=== PATIENT | male | born 1940 | race Two or more races ===

== ENCOUNTER → 2021-05-17 08:14 | Outpatient (REF) | payer MEDICAID, OTHER, SELFPAY ==
--- NOTE | 2021-05-17 08:30 | CA_ITS ---
Transthoracic Echocardiogram Patient (Last, First, Middle): Evan Boyd, Gender: Male Date of : 1940 Age: 80 Procedure Date: 05/17/2021 Procedure Type: Transthoracic Echocardiogram Location: OP Height: 170.18 cm Weight: 80.74 kg BSA: 1.92 m2 Heart Rate: bpm BP: 912 / 61 mmHg Instructional Material Director: DSFausto Referring MD: Rashmi Finnegan NP Symptoms: I10 HTN R42 DIZZINESS GIDDINESS Z95.2 S/P PROSTHETIC HEART V Study Quality: Fair ECG Rhythm: Sinus Conclusions: - The left ventricular systolic function is mildly decreased. The visually estimated ejection fraction is between 45-50%(EF difficult to assess due to poor endocardial definition). - The basal inferior, mid inferior, and basal inferolateral segments are hypokinetic. - No obvious valvular pathology seen on this study. Findings Left Ventricle Normal left ventricular cavity size. There is mildly increased left ventricular wall thickness. The left ventricular systolic function is mildly decreased. The visually estimated ejection fraction is between 45-50%. Evidence suggests grade I (mild) diastolic dysfunction. Wall Motion Rest Echo Findings The basal inferior, mid inferior, and basal inferolateral segments are hypokinetic. Right Ventricle Normal right ventricular cavity size and systolic function. TAPSE 1.95cm. Atria Both atria are normal in size. Aortic Valve There is a normal trileaflet aortic valve. There is mild calcification of the aortic valve. There is no aortic valve stenosis. There is trace (trivial) aortic valve regurgitation. Mitral Valve The mitral valve appears normal. There is trace mitral valve regurgitation. There is no mitral valve stenosis. Pulmonic Valve The pulmonic valve was not well visualized. There is trace pulmonic valve regurgitation. Tricuspid Valve Normal tricuspid valve structure. There is trace tricuspid valve regurgitation. The pulmonary artery systolic pressure is normal. Great Vessels The asc aorta is normal in size. Venous The inferior vena cava is normal in size and collapses greater than 50% with inspiration. Pericardium/Pleural There is no evidence of pericardial effusion. Prior Study Comparison No prior study available for comparison. Recommendations, Care & Conclusions No obvious valvular pathology seen on this study. Measurements 2D Linear Measurements IVSd: 1.22 0.6-0.9/0.6-1.0 cm LVIDd: 4.47 3.9-5.3/4.2-5.9 cm LVIDd Index: 2.33 2.4-3.2/2.2-3.1 cm/m2 LVIDs: 3.20 2.0-3.6 cm LVPWd: 1.13 0.7-1.1 cm Ao Root: 2.80 2.1-3.5 cm LA Diam: 4.00 2.7-3.8/3.0-4.0 cm LAIDs Index: 2.08 1.5-2.3 cm/m2 LV Mass: 237.02 67-162/88-224 g LV Mass Index: 123.45 43-95/49-115 g/m2 LVOT Diam: 2.20 3.0+(-)1.3 cm 2D Systolic Function EF 4C: 43.20 >55% EF 2C: 53.20 >55% EF BiP: 46.70 >55% Mitral Valve MV Pk E: 0.50 MV PK A: 0.68 MV Decel Time: 342.00 E/A: 0.70 E'Lateral: 8.81 E'Medial: 5.66 E/E' Med: 8.80 E/E' Lat: 5.60 PHT: 100.00 MVA PHT: 2.20 Decel Ta[place]: 1.45 Aortic Valve AoV Pk Acosta: 1.51 AoV Pk Grad: 9.00 LVOT LVOT Pk Acosta: 0.83 LVOT Mn Acosta: 0.61 LVOT VTI: 0.21 LVOT Pk Grad: 3.00 LVOT Mn Grad: 2.00 LVOT Diam: 2.20 LVOT Area: 3.80 Diastolic Function MV Pk E: 0.50 MV Pk A: 0.68 E/A: 0.70 E'Medial: 5.66 E/E' Med: 8.80 E' Laterial: 8.81 E/E' Lat: 5.60 Right Ventricle TAPSE (mm): 1.95 Tricuspid Valve TR Pk Acosta: 2.35 TR Pk Grad: 22.00 RA Press: 3.00 RVSP: 25.00 Great Vessels Aorta Ao Root-2D: 2.80 2.0-3.7 cm Ao Asc: 3.60 2.1-3.4 cm Updated in Other Vendor System with Status of Final Parth Lubin MD electronically signed on 05/19/2021 1:42:00 PM with status of Final
== END ==
LOC: HO.CARD 08:14
PROVIDERS: PCP Nurse Practitioner Primary Care; Visit Provider Nurse Practitioner Primary Care
DX: I10 Essential (primary) hypertension (principal); R42 Dizziness and giddiness; Z95.2 Presence of prosthetic heart valve
CPT/HCPCS: 93306

== ENCOUNTER 2022-01-22 07:47 | Outpatient (REF) | payer MEDICAID, OTHER, SELFPAY ==
--- NOTE | ~2022-01-22 | XR_ITS ---
EXAMINATION: XR knee RT 3V, XR knee standing BI CLINICAL INFORMATION: Reason for Exam M17.11 - Unilateral primary osteoarthritis, right knee COMPARISON: None. TECHNIQUE: Weightbearing AP view of the bilateral knees and sunrise and lateral views of the right knee FINDINGS: No acute fracture or traumatic malalignment. There are tricompartmental marginal osteophytes, and by moderate narrowing of the right medial tibiofemoral compartment, without significant loss of joint space thickness of the lateral tibiofemoral compartment. There is mild narrowing of the medial and lateral tibiofemoral compartments on the left. Tricompartmental marginal osteophytes are present. Trace knee joint effusion. XR/XR knee RT 3V IMPRESSION: Tricompartmental degenerative changes as described, most pronounced within the medial tibiofemoral compartment on the right where there is moderate loss of joint space thickness. Trace knee joint effusion.
--- NOTE | ~2022-01-22 | XR_ITS ---
EXAMINATION: XR knee RT 3V, XR knee standing BI CLINICAL INFORMATION: Reason for Exam M17.11 - Unilateral primary osteoarthritis, right knee COMPARISON: None. TECHNIQUE: Weightbearing AP view of the bilateral knees and sunrise and lateral views of the right knee FINDINGS: No acute fracture or traumatic malalignment. There are tricompartmental marginal osteophytes, and by moderate narrowing of the right medial tibiofemoral compartment, without significant loss of joint space thickness of the lateral tibiofemoral compartment. There is mild narrowing of the medial and lateral tibiofemoral compartments on the left. Tricompartmental marginal osteophytes are present. Trace knee joint effusion. XR/XR knee standing BI IMPRESSION: Tricompartmental degenerative changes as described, most pronounced within the medial tibiofemoral compartment on the right where there is moderate loss of joint space thickness. Trace knee joint effusion.
== END 2022-01-22 07:48 | disposition home or self-care (01) ==
LOC: HO.HOSX 07:47
PROVIDERS: Visit Provider Physician Assistant
DX: M17.11 Unilateral primary osteoarthritis, right knee (principal); M25.562 Pain in left knee
CPT/HCPCS: 20610; 73562; 73565; 99202; J1040

== ENCOUNTER → 2022-05-13 13:13 | Outpatient (BNVA) | payer MEDICAID, SELFPAY | PROVIDERS: PCP Nurse Practitioner Primary Care; Referring Provider Nurse Practitioner Primary Care; Visit Provider Internal Medicine | DX: I25.10 Atherosclerotic heart disease of native coronary artery without angina pectoris (principal); I25.5 Ischemic cardiomyopathy; I10 Essential (primary) hypertension; E78.5 Hyperlipidemia, unspecified; Z95.1 Presence of aortocoronary bypass graft | CPT/HCPCS: 93005; 99202 ==

== ENCOUNTER → 2022-05-28 08:38 | Outpatient (REF) | payer MEDICAID, SELFPAY ==
--- NOTE | ~2022-05-28 | NM_ITS ---
Lexiscan Myocardial perfusion study Indication: Coronary artery disease, history of bypass surgery, assess for ischemia Technique: The patient was brought in for a Lexiscan perfusion study on 05/28/2022 and was injected 0.4 mg of Lexiscan intravenously. Within a minute of this injection 30 mCi of sestamibi was given intravenously. Images were obtained using the SPECT gamma camera interlaced with the gating device. Images were obtained in supine position. Resting perfusion study was performed on 05/29/2022. Patient was administered 30 mCi of sestamibi intravenously at rest. Images were then obtained in supine position. Total DLP 73mGy-cm. Images were processed with the software and compared side to side in short axis, horizontal long axis and vertical long axis views. Findings: Raw acquisition reviewed. The stress perfusion study showed diminished tracer uptake in the basal to mid inferior wall. There is some improvement with CT attenuation correction but does not resolve. There is also subdiaphragmatic tracer uptake that interferes with inferior wall assessment. The gated study shows normal LV systolic function with calculated LVEF of 63%. LV cavity is normal in size. The gated study shows diminished contractility in the basal to mid inferior wall. Resting study shows mildly decreased tracer uptake in the basal inferior wall. There is improvement with CT attenuation correction suggestive of diaphragmatic attenuation artifact. Gating at rest reveals LVEF 57%; slight basal inferior hypokinesis. The findings are consistent with basal to mid inferior defect; reversible and fixed components; could be ischemia/infarct pattern but could also be from artifact related to subdiaphragmatic uptake as well as diaphragmatic attenuation. NM/NM cardiolite stress test Impression: 1. Myocardial perfusion imaging study shows possible mild ischemia/infarct pattern in the basal to mid inferior wall. However, could also be artifactual related to subdiaphragmatic uptake as well as diaphragmatic attenuation artifact. Correlate clinically. 2. Gated LVEF is 67% during stress and 57% during rest. 3. Transient ischemic dilatation not present. EKG component of the test reported separately.
--- NOTE | 2022-05-28 08:41 | CA_ITS ---
Acquisition Time: 2022-05-28 08:56:21 Total Exercise Time: 00:03:03 Test Indications: Dyspnea Medications: ASA ATORVASTATIN LISINOPRIL METOPROLOL OMEPRAZOLE Protocol: JASMIN Max HR: 103 BPM 74% of Pred: 138 BPM Max BP: 150/070 mmHG Max Work Load: 4.6 METS Exercise stress test with exercise 3 min 3 sec of Jasmin protocol, achieving 73% MPHR, with request to slow down due to inability to keep up with pace of treadmill, without mild sob, no CP, with nondiagnostic EKG for ischemia due to suboptimal heart rate. Treadmill placed in recovery and slowed to 1 MPH. Testing changed to pharmacological stress test with Lexiscan injection, without anginal symptoms, with isolated PAC, with normtensive response to injection, with nondiagnostic EKG for ischemia. Nuclear images pending. Referred By: Parth Lubin Overread By: NURA GRANT
== END ==
LOC: HO.CARD 08:38
PROVIDERS: Visit Provider Internal Medicine
DX: Z95.1 Presence of aortocoronary bypass graft (principal)
CPT/HCPCS: 78452; 93017; A9500; J0280; J2785

== ENCOUNTER → 2022-07-09 14:31 | Outpatient (BNVA) | payer MEDICAID, SELFPAY | PROVIDERS: PCP Nurse Practitioner Primary Care; Referring Provider Nurse Practitioner Primary Care; Visit Provider Internal Medicine | DX: I25.10 Atherosclerotic heart disease of native coronary artery without angina pectoris (principal); I25.5 Ischemic cardiomyopathy; I10 Essential (primary) hypertension; E78.5 Hyperlipidemia, unspecified; Z95.1 Presence of aortocoronary bypass graft | CPT/HCPCS: 99212 ==

== ENCOUNTER 2022-08-27 08:14 | Outpatient (REF) | payer MEDICAID, SELFPAY ==
[2022-08-27 09:30] LABS: Alanine Aminotransferase 14 U/L (0-40); Albumin Level 4.1 g/dL (3.5-5.0); Alkaline Phosphatase 79 U/L (39-117); Aspartate Amino Transferase 14 U/L (5-37); Bilirubin Direct 0.3 mg/dL (0.0-0.5); Bilirubin Total 0.8 mg/dL (0.0-1.0); Cholesterol 146 mg/dL; HDL Cholesterol 46 mg/dL; LDL Cholesterol Calculated 83 mg/dl; Total Protein 7.1 g/dL (6.5-8.0); Triglycerides 89 mg/dL
== END 2022-08-27 08:15 | disposition home or self-care (01) ==
LOC: HO.LAB 08:14
PROVIDERS: Visit Provider Internal Medicine
DX: E78.5 Hyperlipidemia, unspecified (principal)
CPT/HCPCS: 36415; 80061; 80076

== ENCOUNTER 2023-01-09 11:35 | Inpatient (IN) | payer MEDICAID, SELFPAY ==
--- NOTE | ~2023-01-09 | US_ITS ---
EXAMINATION: US ABDOMEN COMPLETE CLINICAL INFORMATION: Bacteremia. COMPARISON: None available. TECHNIQUE: Real-time imaging of the abdominal viscera. FINDINGS: PANCREAS: Normal. ABDOMINAL AORTA: The proximal, mid, and distal segments are normal in caliber. INFERIOR VENA CAVA: Visualized portions are normal. LIVER: Normal. The liver is normal in size. The liver contour is normal. Parenchymal echogenicity is normal. No focal hepatic lesion. There is no intrahepatic biliary duct dilatation seen. GALLBLADDER: Normal. The gallbladder is physiologically distended without evidence of stones, sludge, polyps, wall thickening or pericholecystic fluid. COMMON BILE DUCT: Normal in caliber measuring 0.3 cm in diameter. RIGHT KIDNEY: Normal. No hydronephrosis. No renal calculi or focal parenchymal lesions. The kidney measures 12.0 cm in maximum dimension. LEFT KIDNEY: Normal. No hydronephrosis. No renal calculi or focal parenchymal lesions. The kidney measures 11.8 cm in maximum dimension. SPLEEN: Normal. The spleen measures 8.3 cm in maximum dimension. FREE FLUID: None. US/US abdomen complete IMPRESSION: Unremarkable examination.
--- NOTE | ~2023-01-09 | CT_ITS ---
EXAMINATION: CT ABDOMEN AND PELVIS WITH CONTRAST CLINICAL INFORMATION: Right flank pain, UTI. COMPARISON: None available. TECHNIQUE: Multidetector volumetric images were obtained from the superior aspect of the liver through the pubic symphysis following administration 85 mL of Omnipaque 350 intravenous contrast. Sagittal and coronal reformatted images were obtained on the technologist's workstation. Oral contrast: No This CT examination was performed using dose optimization techniques as appropriate, variously including the following: *Automated exposure control *Adjustment of mA and/or kV according to patient size (this includes techniques or standardized protocols for targeted exams where dose is matched to indication/reason for exam; i.e. extremities or head) *Use of iterative reconstruction technique DLP: 532 mGy-cm FINDINGS: LUNG BASES: Mild bibasilar atelectasis/scarring. No pleural or pericardial effusions. LIVER, GALLBLADDER, AND BILIARY TREE: Unremarkable.. PANCREAS: Unremarkable. SPLEEN: Unremarkable. ADRENAL GLANDS: Unremarkable. KIDNEYS AND URETERS: The kidneys are normal in size, shape, and attenuation. No hydronephrosis, hydroureter, or calculi seen. No perinephric stranding. BLADDER: Mildly distended with diffuse mild mural thickening, but no focal or surrounding abnormality. GASTROINTESTINAL TRACT: The stomach, small bowel and appendix are unremarkable. The colon shows mild to severe diverticulosis or evidence aligned, most pronounced in the descending colon. There is mild inflammation surrounding a diverticulum in the mid one third of the descending colon without evidence for perforation or abscess formation. ABDOMINAL WALL: No significant hernia is appreciated. LYMPH NODES: No lymphadenopathy. VASCULAR: Mild to moderate atherosclerosis most pronounced in the infrarenal abdominal aorta without significant aneurysmal dilatation. PELVIC VISCERA: Moderate prostatomegaly with lobulation of the prostatic base indenting the inferior wall the urinary bladder. OSSEOUS STRUCTURES: Mild multilevel degenerative changes in the thoracolumbar spine without suspicious abnormality. CT/CT abdomen pelvis w IV con IMPRESSION: 1. Mild acute diverticulitis in the mid one third of the descending colon without evidence for perforation or abscess formation. 2. No nephrolithiasis or hydroureteronephrosis. 3. Moderate prostatomegaly with lobulation of the prostatic base indenting the inferior wall the urinary bladder. Mild mural thickening in the urinary bladder is likely secondary to incomplete distention/chronic changes. Correlate with PSA level.
--- NOTE | ~2023-01-09 | XR_ITS ---
EXAMINATION: XR CHEST CLINICAL INFORMATION: Fever. COMPARISON: None available. TECHNIQUE: Frontal view of the chest was obtained. FINDINGS: Mild linear markings are seen at the left lung base. The upper lung lock are clear. The heart and mediastinal structures are unremarkable. Multilevel sternotomy wires are intact. XR/XR chest 1V IMPRESSION: Mild left basilar linear atelectasis/scarring. No acute cardiopulmonary process.
--- NOTE | ~2023-01-09 | US_ITS ---
EXAMINATION: US PELVIS LIMITED (BLADDER) CLINICAL INFORMATION: Bacteremia; question prostate abscess. COMPARISON: None available. TECHNIQUE: Real-time imaging of the bladder. FINDINGS: BLADDER: Well distended, without calculus or wall thickening. Bilateral ureteral jets are demonstrated. Prevoid bladder volume is 178 mL. Postvoid bladder volume is 75 mL. OTHER: Prostate dimensions are 3.6 x 3.0 x 3.6 cm (volume 20.1 mL). Arising exophytically from the superior prostate gland and projecting into the urinary bladder, a 1.8 x 2.0 x 1.7 cm nodule is noted. No abscess collection is seen. US/US bladder IMPRESSION: 1. A 2.0 cm nodule is seen arising from the superior prostate gland and projecting anteriorly into the urinary bladder. This could be further evaluated with dedicated transrectal prostate ultrasound or MRI, if clinically indicated. Recommend correlation with patient's serum PSA level. 2. No prostate abscess is noted. 3. There is an increased postvoid residual volume.
[2023-01-09 11:41] VITALS: BP 144/76; BP 149/85; PULSE 86; PULSE 88; RESP 26; TEMP 37.9; O2SAT 97; O2SAT 98; BMI 27.1
--- NOTE | 2023-01-09 11:50 | ECG_ITS ---
Test Reason : WEAKNESS Blood Pressure : / mmHG Vent. Rate : 083 BPM Atrial Rate : 083 BPM P-R Int : 152 ms QRS Dur : 090 ms QT Int : 350 ms P-R-T Axes : 053 046 009 degrees QTc Int : 411 ms Normal sinus rhythm Nonspecific ST and T wave abnormality Abnormal ECG No previous ECGs available Referred By: Sana Mccann Electronically Signed By:MUKUND GUSTAFSON MD
--- NOTE | 2023-01-09 11:55 | ED_ITS ---
HPI - Fever General Chief Complaint: Fever Stated Complaint: Anxiety, low back pain per EMS Time Seen by Provider: 01/09/23 11:50 Source: patient and EMS Mode of arrival: EMS Limitations: no limitations History of Present Illness HPI Narrative: 82 y/o male with history of CAD s/p CABG in [facility] in 2006, ALBER, HTN, HLA, urinary retention who presents to the ER from home via EMS for evaluation of shaking chills that started today along with right lower back pain that started yesterday. History obtained from patient's son at the bedside as well. He states that his dad had tremors today and was c/o feeling weak. They did not take his temperature at home. He reports a similar episode 6 months ago but cannot say what the cause was. Patient states he has been coughing and short of breath today. No phlegm. No chest pain. No nausea, vomiting or diarrhea. He has been having normal BMs. No urinary symptoms. Denies abdominal pain and states the pain is all in his right lower back. It is worse with movement. MD elicited complaint: fever and malaise Onset (ago): hour(s) Exacerbating factors: in morning Relieving factors: nothing Associated symptoms: chills, rigors, myalgias, cough, shortness of breath and back/flank pain Treatments prior to arrival fever: none Related Data Home Medications Medication Instructions Recorded Confirmed aspirin 81 mg tablet,delayed 81 mg PO DAILY 01/22/22 01/09/23 release lisinopril 2.5 mg tablet 2.5 mg PO DAILY 01/22/22 01/09/23 omeprazole 20 mg capsule,delayed 20 mg PO DAILY 01/22/22 01/09/23 release metoprolol succinate 50 mg 50 mg PO DAILY 05/13/22 01/09/23 tablet,extended release 24 hr atorvastatin 80 mg tablet 80 mg PO BEDTIME 01/09/23 01/09/23 diclofenac sodium 1 % topical gel 2 g topical QD-QID PRN PAIN IN 01/09/23 01/09/23 RIGHT KNEE fluticasone propionate 50 2 spray intranasal DAILY 01/09/23 01/09/23 mcg/actuation nasal spray,suspension tamsulosin 0.4 mg capsule 0.4 mg PO DAILY@1630 01/09/23 01/09/23 Allergies Allergy/AdvReac Type Severity Reaction Status Date / Time No Known Allergies Allergy Verified 01/09/23 11:40 Review of Systems Review of Systems: Yes all other systems are reviewed and are negative FORMERLY [facility], [facility] Past Medical History Medical History (Updated 01/09/23 @ 15:24 by CRISTAL Stratton) Atherosclerotic cardiovascular disease Hypercholesteremia Hypertension Sleep apnea Urinary retention Surgical History (Updated 05/13/22 @ 13:50 by Parth Lubin MD) History of coronary artery bypass graft (~2006) Family History Family History (Updated 05/13/22 @ 13:41 by JENNIFER Griggs) Father No problems noted. Mother No problems noted. Social History Social History (Updated 05/13/22 @ 13:41 by JENNIFER Griggs) Patient Tobacco Use Status: Never used Tobacco Advance Directives: Yes Advance Directives Information Provided: No Advance Directives on File: No Physical Exam Vital Signs: Vital Signs: Last Vital Signs Temp 100.7 F H 01/09/23 13:32 Pulse 64 01/09/23 17:07 Resp 16 01/09/23 17:07 BP 95/41 L 01/09/23 17:07 Pulse Ox 97 01/09/23 17:07 O2 Del Method Room Air 01/09/23 17:07 BMI result Body Mass Index 27.1 Appearance: Alert. Oriented X3. Rigoring Eyes: Pupils equal, round and reactive to light. ENT: Pharynx normal. Neck: Normal inspection. Neck supple. CVS: Normal heart rate and rhythm. Pulses normal. Respiratory: No respiratory distress. Breath sounds normal. Abdomen: Soft and nontender. +BS x4 Back: tenderness of the right lumbar area. +CVA tenderness on the right Skin: Skin warm and dry. Normal skin color. Normal skin turgor. No rashes. Extremities: No lower extremity edema. Neuro: Oriented X 3. No motor deficit. No sensory deficit. Medications Administered Discontinued Medications Generic Name Dose Route Start Last Admin Trade Name Freq PRN Reason Stop Dose Admin Acetaminophen 975 mg 01/09/23 11:50 01/09/23 12:20 Acetaminophen 325 Mg Tablet PO 01/09/23 11:51 975 mg ONCE ONE Administration Ceftriaxone Sodium 1 gm/ 50 mls @ 100 mls/hr 01/09/23 13:46 03/24/23 15:44 Sodium Chloride IV 01/09/23 14:15 Infused ONCE ONE Infusion Sodium Chloride 1,000 mls @ 999 mls/hr 01/09/23 14:00 01/09/23 15:44 Ns IVCONT 01/09/23 15:00 Infused .Q1H1M DOMENIC Infusion Metronidazole 500 mg in 100 mls @ 100 mls/hr 01/09/23 15:22 01/09/23 16:33 Flagyl IV 01/09/23 16:21 100 mls/hr ONCE ONE Administration Iohexol 85 ml 01/09/23 14:28 01/09/23 14:29 Iohexol 350 Mg/Ml 100 Ml Infus..Btl IV 01/09/23 14:29 85 ml ONCE ONE Administration Medical Decision Making Medical Decision Making MDM Narrative: 82 yo [place]ralt[place] speaking male with 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 Low grade fever on arrival. Hemodynamically stable but tachypenic w RR 26-28. Lungs are clear. Septic workup started. WBC 14K, normal lactic acid. Urinalysis c/w infection. CT scan performed which is showing acute diverticulitis. He meets sepsis criteria. He was given Rocephin for UTI. Will add Flagyl for additional intra-abdominal coverage. Will plan for admission. Differential Diagnosis Differential Diagnoses: The differential diagnosis associated with the presentation includes sepsis, UTI, PNA, viral illness, acute intra-abdominal infection such as appendicitis, cholecystitis less likely Admission/Observation Consideration of admission/observation: Escalation of care including admission/observation considered Consult Healthcare Provider Management of the patient was discussed with: Hospitalist Lab Data [facility] Lab Attestation statement: I reviewed the patient's lab results. Leukocytosis, no major metabolic derangement. 01/09/23 12:17 01/09/23 12:16 Labs: Lab Results 01/09/23 01/09/23 01/09/23 Range/Units 12:16 12:16 12:17 WBC 14.4 H (4.8-10.8) X10*3/uL RBC 5.07 (4.60-5.80) X10*6/uL Hgb 14.3 (14.0-18.0) g/dl Hct 44.0 (42.0-52.0) % MCV 86.8 (80.0-98.0) fL MCH 28.2 (27.0-33.0) pg MCHC 32.5 (31.0-36.0) g/dl RDW 14.2 (11.0-16.0) % Plt Count 194 (160-400) X10*3/uL MPV 10.6 (9.4-12.4) fL Immature Gran % (Auto) 0.3 (0.0-0.4) % Neut % (Auto) 85.4 H (45-73) % Lymph % (Auto) 6.0 L (20-40) % Pine % (Auto) 4.3 (2-11) % Eos % (Auto) 3.4 (0-4) % Baso % (Auto) 0.6 (0-2) % Lymph # (Auto) 0.9 L (1.2-4.9) X10*3/uL Pine # (Auto) 0.6 (0.1-1.2) X10*3/uL Eos # (Auto) 0.5 H (0.0-0.4) X10*3/uL Baso # (Auto) 0.1 (0.0-0.2) X10*3/uL Abs Immat Gran (auto) 0.05 H (0.00-0.03) X10*3/uL Absolute Neuts (auto) 12.3 H (2.0-8.3) x10*3/uL Absolute Nucleated RBC 0.000 (0.0-0.012) X10*3/uL Nucleated RBC % (auto) 0.0 (0.0-0.2) /100WBC Sodium 142 (135-145) mmol/L Potassium 3.9 (3.3-5.1) mmol/L Chloride 108 (96-108) mmol/L Carbon Dioxide 26 (22-29) mmol/L Anion Gap 12 (12-20) BUN 17 H (9-16) mg/dL Creatinine 1.07 (0.5-1.4) mg/dL Estim Creat Clear Calc 54.6 Estimated GFR > 60 Random Glucose 95 (60-115) mg/dL Lactic Acid (0.5-2.0) mmol/L Calcium 9.1 (8.4-10.2) mg/dL Magnesium 1.8 (1.6-2.6) mg/dL Total Bilirubin 1.1 H (0.0-1.0) mg/dL Direct Bilirubin 0.3 (0.0-0.5) mg/dL AST 12 (5-37) U/L ALT 11 (0-40) U/L Alkaline Phosphatase 75 (39-117) U/L C-Reactive Protein 0.47 (< or = 0.50) mg/dL B-Natriuretic Peptide 108 H (<100) pg/mL Total Protein 6.8 (6.5-8.0) g/dL Albumin 4.0 (3.5-5.0) g/dL Procalcitonin 0.09 ng/mL Urine Color Urine Appearance Urine pH (5.0-9.0) Ur Specific Ewing (1.005-1.025) Urine Protein (Neg-Trace) mg/dL Urine Glucose (UA) (Negative) mg/dL Urine Ketones (Negative) mg/dL Urine Blood (Negative) Urine Nitrite (Negative) Ur Leukocyte Esterase (Negative) Urine RBC (0-2) /HPF Urine WBC (0-5) /HPF Ur Squamous Epith Cells (0-2) /HPF Urine Bacteria (None Seen) Hyaline Casts (0-2) /LPF COVID-19 ([facility]) (Negative) COVID-19 Clin Com 01/09/23 01/09/23 01/09/23 Range/Units 12:17 12:17 13:34 WBC (4.8-10.8) X10*3/uL RBC (4.60-5.80) X10*6/uL Hgb (14.0-18.0) g/dl Hct (42.0-52.0) % MCV (80.0-98.0) fL MCH (27.0-33.0) pg MCHC (31.0-36.0) g/dl RDW (11.0-16.0) % Plt Count (160-400) X10*3/uL MPV (9.4-12.4) fL Immature Gran % (Auto) (0.0-0.4) % Neut % (Auto) (45-73) % Lymph % (Auto) (20-40) % Pine % (Auto) (2-11) % Eos % (Auto) (0-4) % Baso % (Auto) (0-2) % Lymph # (Auto) (1.2-4.9) X10*3/uL Pine # (Auto) (0.1-1.2) X10*3/uL Eos # (Auto) (0.0-0.4) X10*3/uL Baso # (Auto) (0.0-0.2) X10*3/uL Abs Immat Gran (auto) (0.00-0.03) X10*3/uL Absolute Neuts (auto) (2.0-8.3) x10*3/uL Absolute Nucleated RBC (0.0-0.012) X10*3/uL Nucleated RBC % (auto) (0.0-0.2) /100WBC Sodium (135-145) mmol/L Potassium (3.3-5.1) mmol/L Chloride (96-108) mmol/L Carbon Dioxide (22-29) mmol/L Anion Gap (12-20) BUN (9-16) mg/dL Creatinine (0.5-1.4) mg/dL Estim Creat Clear Calc Estimated GFR Random Glucose (60-115) mg/dL Lactic Acid 1.6 (0.5-2.0) mmol/L Calcium (8.4-10.2) mg/dL Magnesium (1.6-2.6) mg/dL Total Bilirubin (0.0-1.0) mg/dL Direct Bilirubin (0.0-0.5) mg/dL AST (5-37) U/L ALT (0-40) U/L Alkaline Phosphatase (39-117) U/L C-Reactive Protein (< or = 0.50) mg/dL B-Natriuretic Peptide (<100) pg/mL Total Protein (6.5-8.0) g/dL Albumin (3.5-5.0) g/dL Procalcitonin ng/mL Urine Color Yellow Urine Appearance Clear Urine pH 5.5 (5.0-9.0) Ur Specific Ewing 1.020 (1.005-1.025) Urine Protein Negative (Neg-Trace) mg/dL Urine Glucose (UA) Negative (Negative) mg/dL Urine Ketones Negative (Negative) mg/dL Urine Blood Negative (Negative) Urine Nitrite Positive H (Negative) Ur Leukocyte Esterase Moderate (2+) H (Negative) Urine RBC 0-2 (0-2) /HPF Urine WBC 11-20 H (0-5) /HPF Ur Squamous Epith Cells 0-2 (0-2) /HPF Urine Bacteria 4+ (None Seen) Hyaline Casts 0-2 (0-2) /LPF COVID-19 ([facility]) Negative (Negative) COVID-19 Clin Com See Note Independent Interpretation I performed an independent interpretation of an: EKG and CT Scan Interpretation: EKG @ 12:10 - normal sinus rhythm, artifact present, ventricular rate 83 beats per minute, normal NC interval, no ST segment elevations or depressions appreciated. Radiology Impression Discussion of test interpretation with radiology: I have reviewed the radiologist's reading. Radiologist Impression: CT/CT abdomen pelvis w IV con IMPRESSION: 1.? Mild acute diverticulitis in the mid one third of the descending colon without evidence for perforation or abscess formation. 2.? No nephrolithiasis or hydroureteronephrosis. 3.? Moderate prostatomegaly with lobulation of the prostatic base indenting the inferior wall the urinary bladder. Mild mural thickening in the urinary bladder is likely secondary to incomplete distention/chronic changes. Correlate with PSA level. Independent Historian Clinical information obtained from an independent historian. History obtained from or confirmed by: EMS and Other (Son) External Record Review External record reviewed: Office record, Outpatient record, Prior outpatient labs and Prior outpatient radiology Prescription Management I considered prescription management with: Antibiotic Chronic Conditions Patient?s care impacted by: Other (CAD, ischemic CMP) Critical Care Time Critical Care Time Critical Care Time: Yes Total Critical Care Time: 35 Attestation: I have personally provided critical care time exclusive of time spent on separately billable procedures. Time includes review of lab data, radiology results, discussion with consultants, and monitoring for potential decompensati on. Intervention performed as documented. Discharge Plan Discharge Clinical Impression: Acute UTI, Acute diverticulitis Patient Disposition: Admitted As Inpatient
[2023-01-09] MEDS: Acetaminophen 325 MG TABLET 975 MG PO (12:20)
[2023-01-09 12:29] LABS: MANUAL DIFF FLAG NO
[2023-01-09 12:31] LABS: Basophils Absolute Auto 0.1 X10*3/uL (0.0-0.2); Basophils Percent Auto 0.6 % (0-2); Eosinophils Absolute Auto 0.5 X10*3/uL (0.0-0.4); Eosinophils Percent Auto 3.4 % (0-4); Hemoglobin 14.3 g/dl (14.0-18.0); Imm Gran Abs Auto 0.05 X10*3/uL (0.00-0.03); Imm Gran Pct Auto 0.3 % (0.0-0.4); Lymphocytes Absolute Auto 0.9 X10*3/uL (1.2-4.9); Mean Corpuscular HGB Conc 32.5 g/dl (31.0-36.0); Mean Corpuscular Hemoglobin 28.2 pg (27.0-33.0); Mean Corpuscular Volume 86.8 fL (80.0-98.0); Mean Platelet Volume 10.6 fL (9.4-12.4); Monocytes Absolute Auto 0.6 X10*3/uL (0.1-1.2); Monocytes Percent Auto 4.3 % (2-11); Neutrophils Absolute Auto 12.3 x10*3/uL (2.0-8.3); Neutrophils Percent Auto 85.4 % (45-73); Platelet Count 194 X10*3/uL (160-400); Red Blood Count 5.07 X10*6/uL (4.60-5.80); Red Cell Distribution Width 14.2 % (11.0-16.0); White Blood Count 14.4 X10*3/uL (4.8-10.8)
[2023-01-09 12:43] LABS: Lactic Acid 1.6 mmol/L (0.5-2.0)
[2023-01-09 12:52] LABS: B Type Natriuretic Peptide 108 pg/mL (<100)
[2023-01-09 12:58] LABS: Alanine Aminotransferase 11 U/L (0-40); Alkaline Phosphatase 75 U/L (39-117); Anion Gap 12 (12-20); Aspartate Amino Transferase 12 U/L (5-37); Bilirubin Direct 0.3 mg/dL (0.0-0.5); Bilirubin Total 1.1 mg/dL (0.0-1.0); Blood Urea Nitrogen 17 mg/dL (9-16); Calcium 9.1 mg/dL (8.4-10.2); Carbon Dioxide 26 mmol/L (22-29); Chloride 108 mmol/L (96-108); Creatinine Clr Calc Pharmacy 54.6; Estimated Glomerular Filt Rate > 60; Glucose Random 95 mg/dL (60-115); Magnesium 1.8 mg/dL (1.6-2.6); Potassium 3.9 mmol/L (3.3-5.1); Sodium 142 mmol/L (135-145); Total Protein 6.8 g/dL (6.5-8.0)
[2023-01-09 12:59] LABS: COVID-19 Test Negative (Negative); IDNOW Serial# BCCEAD1C
[2023-01-09 13:11] LABS: Procalcitonin 0.09 ng/mL
[2023-01-09 13:22] LABS: C Reactive Protein 0.47 mg/dL (< or = 0.50)
[2023-01-09 13:32] VITALS: BP 111/55; PULSE 86; RESP 19; TEMP 38.2; O2SAT 96
[2023-01-09 13:43] LABS: Appearance Urine Clear; Color Urine Yellow; Glucose Urine UA Negative (Negative); Leukocyte Esterase Urine Moderate (2+) (Negative); Nitrite Urine Positive (Negative); PH 5.5 (5.0-9.0); UMIC TRIGGER UACC YES; Urine Blood Negative (Negative); Urine Ketones Negative (Negative); Urine Protein Negative (Neg-Trace)
[2023-01-09 13:47] LABS: Bacteria Urine 4+ (None Seen); Hyaline Casts Urine 0-2 /LPF (0-2); RBC Urine 0-2 /HPF (0-2); Squamous Epithelial Cell Urine 0-2 /HPF (0-2); UACC Culture Trigger YES
[2023-01-09] MEDS: cefTRIAXone sodium 1 GM in 0.9 % Sodium Chloride 50 ML IV (14:08)
[2023-01-09] MEDS: 0.9 % Sodium Chloride 1,000 ML 999 ML IVCONT (14:08)
[2023-01-09] MEDS: iohexoL 350 MG/ML 100 ML INFUS..BTL 85 ML IV (14:29)
--- NOTE | 2023-01-09 16:01 | PHA.MEDREC ---
MED REC COMPLETE, NO ISSUES Pharmacy Consult ? Medication Reconciliation Pharmacy has completed the medication reconciliation.
[2023-01-09] MEDS: metroNIDAZOLE/NS 500 MG/100 ML PIGGYBACK 100 MG IV ×2 (16:33→23:31)
--- NOTE | 2023-01-09 16:37 | PM.IMHP ---
History of Present Illness Date of Service: 01/09/23 Attending physician on admission: Timoteo Riggs Chief Complaint: Shaking chills Pt is an 82-year-old male with a PMH significant for?CAD s/p CABG in 2006, ischemic cardiomyopathy, LVEF 45-50% on ECHO 2020, ALBER, HTN, HLD, and urinary retention who presents to the ED with?shaking chills. Pt states symptoms began yesterday with right lower back pain. When he woke this morning he had subjective fever that was not measured and shaking chills. Patient did not have any nausea, vomiting, abdominal pain, diarrhea. Son is at bedside and states that father had similar symptoms 6 months ago. They came to the ED for evaluation but symptoms went away while they were waiting to be seen. They were told by the doctor to present again to the ED if symptoms returned. Patient states that he otherwise felt fine yesterday. Patient does note he has had urinary urgency and retention lately, but does not think that it is any more than normal. Denies chest pain/pressure, palpitations. No SOB. Notes back pain has now resolved. In the ED patient was febrile at 100.7 and tachypneic at 26, satting 96% on RA. Labs were significant for leukocytosis of 14.4. UA positive for UTI. CXR showed no acute cardiopulmonary disease. CT?of abdomen and pelvis showed acute diverticulitis without evidence of perforation or abscess formation, and mild mural thickening in the urinary bladder possibly secondary to incomplete distension/chronic changes. EKG demonstrated normal sinus rhythm witn nonspecific ST and T wave abnormality. Pt was treated with acetaminophen, IVF, ceftriaxone, and metronidazole. Pt will be admitted to the hospital for treatment of acute diverticulitis and UTI with IV antibiotics. Review of Systems Review of Systems: Shaking chills Fever Lower right back pain Denies nausea, vomiting, diarrhea, abdominal pain No chest pain/pressure, palpitations Denies SOB Yes all other systems are reviewed and are negative [facility] Medical History Atherosclerotic cardiovascular disease Hypercholesteremia Hypertension Sleep apnea Urinary retention Family History Father No problems noted. Mother No problems noted. Surgical History History of coronary artery bypass graft (~2006) Social History Patient Tobacco Use Status: Never used Tobacco Advance Directives: Yes Advance Directives Information Provided: No Advance Directives on File: No Meds Allergies Allergy/AdvReac Type Severity Reaction Status Date / Time No Known Allergies Allergy Verified 01/09/23 11:40 Active Medications: Current Medications Pharmacy Consult (Consult Rx Perform Med Rec) 1 each MISCELLANE ONCE PRN PRN Reason: Consult order Home Medications Medication Instructions Recorded Confirmed Last Taken Type aspirin 81 mg tablet,delayed 81 mg PO DAILY 01/22/22 01/09/23 Unknown History release lisinopril 2.5 mg tablet 2.5 mg PO DAILY 01/22/22 01/09/23 Unknown History omeprazole 20 mg capsule,delayed 20 mg PO DAILY 01/22/22 01/09/23 Unknown History release metoprolol succinate 50 mg 50 mg PO DAILY 05/13/22 01/09/23 Unknown History tablet,extended release 24 hr atorvastatin 80 mg tablet 80 mg PO BEDTIME 01/09/23 01/09/23 Unknown History diclofenac sodium 1 % topical gel 2 g topical QD-QID PRN PAIN IN 01/09/23 01/09/23 Unknown History RIGHT KNEE fluticasone propionate 50 2 spray intranasal DAILY 01/09/23 01/09/23 Unknown History mcg/actuation nasal spray,suspension tamsulosin 0.4 mg capsule 0.4 mg PO DAILY@1630 01/09/23 01/09/23 Unknown History Physical Exam Vital Signs and Narrative: Vital Signs: Last Vital Signs Temp 100.7 F H 01/09/23 13:32 Pulse 86 01/09/23 13:32 Resp 19 01/09/23 13:32 BP 111/55 L 01/09/23 13:32 Pulse Ox 96 01/09/23 13:32 O2 Del Method Room Air 01/09/23 13:32 BMI result Body Mass Index 27.1 Constitutional: Alert, in no acute distress. Mental Status: Oriented to person, place and time. Eyes: Pupils are equal, round, and reactive to light. Ear, Nose, and Throat: Oropharynx clear, mucous membranes moist. Ears and nose without deformities. Trachea midline. Respiratory: Clear to auscultation bilaterally. No wheezing, rales, or rhonchi. Cardiovascular: S1, S2 regular. No murmurs, rubs, or gallops. Gastrointestinal: Abdomen soft, non-tender, non-distended. Normal bowel sounds. Neurologic: Cranial nerves II-XII are grossly intact bilaterally. No focal neurological deficits. Moves all extremities spontaneously. Skin: Warm, dry. Musculoskeletal: Back nontender. No CVA tenderness. Extremities: No edema. Psychiatric: Normal mood and affect. Results Labs 01/09/23 12:17 01/09/23 12:16 Labs: Laboratory Results - last 24 hr 01/09/23 01/09/23 01/09/23 12:16 12:16 12:17 MCV 86.8 MCH 28.2 MCHC 32.5 RDW 14.2 Plt Count 194 MPV 10.6 Immature Gran % (Auto) 0.3 Neut % (Auto) 85.4 H Lymph % (Auto) 6.0 L [place] % (Auto) 4.3 Eos % (Auto) 3.4 Baso % (Auto) 0.6 Lymph # (Auto) 0.9 L [place] # (Auto) 0.6 Eos # (Auto) 0.5 H Baso # (Auto) 0.1 Abs Immat Gran (auto) 0.05 H Absolute Neuts (auto) 12.3 H Absolute Nucleated RBC 0.000 Nucleated RBC % (auto) 0.0 Anion Gap 12 Estim Creat Clear Calc 54.6 Estimated GFR > 60 Random Glucose 95 Lactic Acid Calcium 9.1 Magnesium 1.8 Total Bilirubin 1.1 H Direct Bilirubin 0.3 AST 12 ALT 11 Alkaline Phosphatase 75 C-Reactive Protein 0.47 B-Natriuretic Peptide 108 H Total Protein 6.8 Albumin 4.0 Procalcitonin 0.09 Urine Color Urine Appearance Urine pH Ur Specific [place] Urine Protein Urine Glucose (UA) Urine Ketones Urine Blood Urine Nitrite Ur Leukocyte Esterase Urine RBC Urine WBC Ur Squamous Epith Cells Urine Bacteria Hyaline Casts COVID-19 ([facility]) COVID-19 Clin Com 01/09/23 01/09/23 01/09/23 12:17 12:17 13:34 MCV MCH MCHC RDW Plt Count MPV Immature Gran % (Auto) Neut % (Auto) Lymph % (Auto) [place] % (Auto) Eos % (Auto) Baso % (Auto) Lymph # (Auto) [place] # (Auto) Eos # (Auto) Baso # (Auto) Abs Immat Gran (auto) Absolute Neuts (auto) Absolute Nucleated RBC Nucleated RBC % (auto) Anion Gap Estim Creat Clear Calc Estimated GFR Random Glucose Lactic Acid 1.6 Calcium Magnesium Total Bilirubin Direct Bilirubin AST ALT Alkaline Phosphatase C-Reactive Protein B-Natriuretic Peptide Total Protein Albumin Procalcitonin Urine Color Yellow Urine Appearance Clear Urine pH 5.5 Ur Specific [place] 1.020 Urine Protein Negative Urine Glucose (UA) Negative Urine Ketones Negative Urine Blood Negative Urine Nitrite Positive H Ur Leukocyte Esterase Moderate (2+) H Urine RBC 0-2 Urine WBC 11-20 H Ur Squamous Epith Cells 0-2 Urine Bacteria 4+ Hyaline Casts 0-2 COVID-19 ([facility]) Negative COVID-19 Clin Com See Note Imaging Radiologist's Impressions: Impressions Chest X-Ray 01/09/23 12:06 IMPRESSION: Mild left basilar linear atelectasis/scarring. No acute cardiopulmonary process. Abdomen/Pelvis CT 01/09/23 14:20 IMPRESSION: 1. Mild acute diverticulitis in the mid one third of the descending colon without evidence for perforation or abscess formation. 2. No nephrolithiasis or hydroureteronephrosis. 3. Moderate prostatomegaly with lobulation of the prostatic base indenting the inferior wall the urinary bladder. Mild mural thickening in the urinary bladder is likely secondary to incomplete distention/chronic changes. Correlate with PSA level. Assessment and Plan (1) Acute UTI: Status: Acute (2) Acute diverticulitis: Status: Acute Plan Pt is an 82-year-old male with a PMH significant for?CAD s/p CABG in 2006, ischemic cardiomyopathy, LVEF 45-50% on ECHO 2020, ALBER, HTN, HLD, and urinary retention who presents to the ED with?shaking chills. Pt will be admitted to the hospital for treatment of acute diverticulitis and UTI with IV antibiotics. Acute diverticulitis CT of the abdomen and pelvis showed mild acute diverticulitis in the mid 1/3 of the descending colon without evidence of perforation or abscess Patient without nausea, vomiting, diarrhea IV antibiotics: Metronidazole and ceftriaxone Diet as tolerated Patient received 1L IVF in ED UTI UA positive for nitrates, leukocyte esterase, and WBC Patient with urinary retention and increased urgency Patient covered by ceftriaxone Sepsis Patient meets sepsis criteria: Suspected infection, WBC, tachypneic, lactic acid WNL Pt meets severe sepsis criteria d/t MAP <65, but pt not given 30 mls/kg IVF d/t HFrEF Patient received 1L IVF in ED Patient being covered by broad-spectrum antibiotics HTN Hold lisinopril d/t hypotension CAD Continue aspirin, statin Full Code Attending:?Dr. Riggs DVT Prophylaxis: Lovenox Pt will require a hospitalization of at least two nights for treatment of?acute diverticulitis and UTI with IV antibiotics. Time Spent With Patient Time: Total time managing care of this patient today ____ minutes. Quality Stroke Does the patient have a stroke diagnosis?: No VTE Prior VTE?: No VTE Risk Level:: Medical - moderate - high VTE Device Contraindication: Treatment Not Indicated VTE Drug Contraindication: N/A - Med Ordered
[2023-01-09 17:07] VITALS: BP 95/41; PULSE 64; RESP 16; O2SAT 97
--- NOTE | 2023-01-09 17:50 | PC.NURSE ---
patient denies abd pain at this time. ambulating with steady gait independently to and from the bathroom
--- NOTE | 2023-01-09 18:32 | P.EN_ITS ---
Event Note Date of Service: 01/09/23 Event Note: Addendum to history and physical by the advanced practice provider, CRISTAL Avila I interviewed and examined the patient. I discussed their presentation and management with the ELISSA. I reviewed the history and physical and agree with the documentation, with the following additions and corrections: This history was taken in Greenlandic from the patient. 82yo M with hx CAD + ischemic CM s/p CABG, prostatism presenting with sudden onset of tactile fever and rigors upon awakening this morning. Some L lower back pain that has since resolved. On presentation to the ED met sepsis criteria with WBC 14.4 [85% PMNs], RR 88. Tmax 100.7. BP 144/76 -> 95/41. He feels entirely well, though. No CVA tenderness and no abdominal tenderness. UA with nitrituria/bacteruria/pyuria CT A/P shows mild sigmoid diverticulitis. LA 1.6. He was given 1L NS, ceftriaxone + metronidazole. More IV NS [i.e. 30 cc/kg] not given due to concern for fluid overload given cardiac history. Will admit to telemetry for sepsis from suspected source diverticulitis vs UTI. Follow BCx/UCx. Time Spent With Patient Time: Total time managing care of this patient today ____ minutes.
[2023-01-09 19:09] VITALS: BP 105/67; PULSE 63; RESP 18; TEMP 37; O2SAT 97
[2023-01-09] MEDS: Atorvastatin Calcium 80 MG TABLET PO (20:27)
[2023-01-09] MEDS: 0.9 % Sodium Chloride Flush 3 ML SYRINGE IVFLUSH (20:28)
[2023-01-09 20:33] VITALS: BMI 27.1
[2023-01-09 23:22] VITALS: BP 149/65; PULSE 61; RESP 16; TEMP 37.7; O2SAT 98
[2023-01-09] MEDS: Acetaminophen 325 MG TABLET 650 MG PO (23:36)
--- NOTE | 2023-01-09 23:51 | PC.NURSE ---
Addendum entered by Sepideh Del Cid RN 01/10/23 05:42: + blood culture- gram negative rods. notified. Original Note: Pt w/ low grade temp of 99.8. prn tylenol given. MD Freeman notified and ordered stat blood cultures and lactic acid.
[2023-01-10] VITALS (10 sets, daily range): BP systolic 92–156; BP diastolic 50–67; PULSE 52–122; RESP 16–18; TEMP 36.5–37.2; O2SAT 96–99
[2023-01-10 00:58] LABS: Lactic Acid 1.1 mmol/L (0.5-2.0)
[2023-01-10] MEDS: Omeprazole 20 MG CAPSULE.DR PO (05:18)
[2023-01-10 07:10] LABS: Hematocrit 36.7 % (42.0-52.0); Hemoglobin 11.8 g/dl (14.0-18.0); Mean Corpuscular HGB Conc 32.2 g/dl (31.0-36.0); Mean Corpuscular Volume 87.2 fL (80.0-98.0); Mean Platelet Volume 11.2 fL (9.4-12.4); Platelet Count 161 X10*3/uL (160-400); Red Blood Count 4.21 X10*6/uL (4.60-5.80); Red Cell Distribution Width 14.1 % (11.0-16.0); White Blood Count 11.7 X10*3/uL (4.8-10.8)
[2023-01-10] MEDS: 0.9 % Sodium Chloride Flush 3 ML SYRINGE IVFLUSH (07:24)
[2023-01-10] MEDS: metroNIDAZOLE/NS 500 MG/100 ML PIGGYBACK 100 MG IV ×2 (07:24→15:14)
[2023-01-10] MEDS: Aspirin Enteric Coated 81 MG TABLET.DR PO (07:25)
[2023-01-10] MEDS: 0.9 % Sodium Chloride 1,000 ML 500 ML IVCONT (08:22)
[2023-01-10] MEDS: Fluticasone Propionate Nasal 16 GM SPRAY 2 SPRAY NOSTRIL-B (09:42)
[2023-01-10] MEDS: 0.9 % Sodium Chloride 1,000 ML 75 ML IVCONT (11:00)
--- NOTE | 2023-01-10 11:39 | P.PNIM_ITS ---
Subjective Subjective Date of Service: 01/10/23 Interval History: This history was taken in Vietnamese from the patient. Feels entirely well. No further fever/chills/back pain. No N/V/abd pain. No dysuria. BCx and UCx growing GNRs Physical Exam Vital Signs: Vital Signs: Last Vital Signs Temp 98.3 F 01/10/23 11:11 Pulse 54 01/10/23 11:11 Resp 16 01/10/23 11:11 BP 133/61 01/10/23 11:11 Pulse Ox 97 01/10/23 11:11 O2 Del Method Room Air 01/10/23 11:11 BMI result Body Mass Index 27.1 Gen: in no acute distress HEENT: sclera anicteric, moist mucus membranes Neck: supple Lungs: clear to auscultation bilaterally Heart: regular rate and rhythm, no murmurs Abd: soft, non-tender, non-distended Ext: no edema Skin: warm/well-perfused Neuro: alert and oriented x3, no focal findings Psych: appropriate affect Objective Data Active Medications Acetaminophen (Acetaminophen 325 Mg Tablet) 650 mg PO Q6H PRN PRN Reason: Pain, Mild (Pain Scale 1-3) Last Admin: 01/09/23 23:36 Dose: 650 mg Documented By: JASEN Aspirin (Aspirin Enteric Coated 81 Mg Tablet.) 81 mg PO DAILY [facility] Last Admin: 01/10/23 07:25 Dose: 81 mg Documented By: JIGNA Atorvastatin Calcium (Atorvastatin Calcium 80 Mg Tablet) 80 mg PO BEDTIME [facility] Last Admin: 01/09/23 20:27 Dose: 80 mg Documented By: JASEN Enoxaparin Sodium (Enoxaparin Sodium 40 Mg/0.4 Ml Syringe) 40 mg SUBCUT Q24H [facility] Last Admin: 01/09/23 19:06 Dose: Not Given Documented By: RUDY Non-Admin Reason: Patient Refused Fluticasone Propionate (Fluticasone Propionate Nasal 16 Gm [place]) 2 spray NOSTRIL-B DAILY [facility] Last Admin: 01/10/23 09:42 Dose: 2 spray Documented By: JIGNA Ceftriaxone Sodium 1 gm/ (Sodium Chloride) 50 mls @ 100 mls/hr IV Q24H [facility] Metronidazole (Flagyl) 500 mg in 100 mls @ 100 mls/hr IV Q8H [facility] Last Infusion: 01/10/23 08:26 Dose: 0 mls/hr Documented By: JIGNA Sodium Chloride (Ns) 1,000 mls @ 75 mls/hr IVCONT .[id number] [facility] Last Admin: 01/10/23 11:00 Dose: 75 mls/hr Documented By: JIGNA Metoprolol Succinate (Metoprolol Succinate Er 50 Mg Tab.Er.24h) 50 mg PO DAILY [facility]; Protocol Last Admin: 01/10/23 07:19 Dose: Not Given Documented By: JIGNA Non-Admin Reason: Decreased Heart Rate Omeprazole (Omeprazole 20 Mg Capsule.Dr) 20 mg PO DAILY@0630 [facility] Last Admin: 01/10/23 05:18 Dose: 20 mg Documented By: JASEN Ondansetron HCl (Ondansetron Hcl 4 Mg/2 Ml Vial) 4 mg IVPUSH Q8H PRN PRN Reason: Nausea and Vomiting Pharmacy Consult (Consult Rx Perform Med Rec) 1 each MISCELLANE ONCE PRN PRN Reason: Consult order Sodium Chloride (0.9 % Sodium Chloride Flush 3 Ml Syringe) 3 ml IVFLUSH QSHIFT [facility] Last Admin: 01/10/23 07:24 Dose: 3 ml Documented By: JIGNA Tamsulosin HCl (Tamsulosin Hcl 0.4 Mg Capsule) 0.4 mg PO DAILY@1630 [facility] Labs 01/10/23 05:55 01/09/23 12:16 Labs: Laboratory Results - last 24 hr 01/09/23 01/09/23 01/09/23 12:16 12:16 12:17 MCV 86.8 MCH 28.2 MCHC 32.5 RDW 14.2 Plt Count 194 MPV 10.6 Immature Gran % (Auto) 0.3 Neut % (Auto) 85.4 H Lymph % (Auto) 6.0 L [place] % (Auto) 4.3 Eos % (Auto) 3.4 Baso % (Auto) 0.6 Lymph # (Auto) 0.9 L [place] # (Auto) 0.6 Eos # (Auto) 0.5 H Baso # (Auto) 0.1 Abs Immat Gran (auto) 0.05 H Absolute Neuts (auto) 12.3 H Absolute Nucleated RBC 0.000 Nucleated RBC % (auto) 0.0 Anion Gap 12 Estim Creat Clear Calc 54.6 Estimated GFR > 60 Random Glucose 95 Lactic Acid Calcium 9.1 Magnesium 1.8 Total Bilirubin 1.1 H Direct Bilirubin 0.3 AST 12 ALT 11 Alkaline Phosphatase 75 C-Reactive Protein 0.47 B-Natriuretic Peptide 108 H Total Protein 6.8 Albumin 4.0 Procalcitonin 0.09 Urine Color Urine Appearance Urine pH Ur Specific [place] Urine Protein Urine Glucose (UA) Urine Ketones Urine Blood Urine Nitrite Ur Leukocyte Esterase Urine RBC Urine WBC Ur Squamous Epith Cells Urine Bacteria Hyaline Casts COVID-19 ([facility]) COVID-19 Clin Com 01/09/23 01/09/23 01/09/23 12:17 12:17 13:34 MCV MCH MCHC RDW Plt Count MPV Immature Gran % (Auto) Neut % (Auto) Lymph % (Auto) [place] % (Auto) Eos % (Auto) Baso % (Auto) Lymph # (Auto) [place] # (Auto) Eos # (Auto) Baso # (Auto) Abs Immat Gran (auto) Absolute Neuts (auto) Absolute Nucleated RBC Nucleated RBC % (auto) Anion Gap Estim Creat Clear Calc Estimated GFR Random Glucose Lactic Acid 1.6 Calcium Magnesium Total Bilirubin Direct Bilirubin AST ALT Alkaline Phosphatase C-Reactive Protein B-Natriuretic Peptide Total Protein Albumin Procalcitonin Urine Color Yellow Urine Appearance Clear Urine pH 5.5 Ur Specific [place] 1.020 Urine Protein Negative Urine Glucose (UA) Negative Urine Ketones Negative Urine Blood Negative Urine Nitrite Positive H Ur Leukocyte Esterase Moderate (2+) H Urine RBC 0-2 Urine WBC 11-20 H Ur Squamous Epith Cells 0-2 Urine Bacteria 4+ Hyaline Casts 0-2 COVID-19 ([facility]) Negative COVID-19 Clin Com See Note 01/10/23 01/10/23 00:20 05:55 MCV 87.2 MCH 28.0 MCHC 32.2 RDW 14.1 Plt Count 161 MPV 11.2 Immature Gran % (Auto) Neut % (Auto) Lymph % (Auto) [place] % (Auto) Eos % (Auto) Baso % (Auto) Lymph # (Auto) [place] # (Auto) Eos # (Auto) Baso # (Auto) Abs Immat Gran (auto) Absolute Neuts (auto) Absolute Nucleated RBC 0.000 Nucleated RBC % (auto) 0.0 Anion Gap Estim Creat Clear Calc Estimated GFR Random Glucose Lactic Acid 1.1 Calcium Magnesium Total Bilirubin Direct Bilirubin AST ALT Alkaline Phosphatase C-Reactive Protein B-Natriuretic Peptide Total Protein Albumin Procalcitonin Urine Color Urine Appearance Urine pH Ur Specific [place] Urine Protein Urine Glucose (UA) Urine Ketones Urine Blood Urine Nitrite Ur Leukocyte Esterase Urine RBC Urine WBC Ur Squamous Epith Cells Urine Bacteria Hyaline Casts COVID-19 ([facility]) COVID-19 Clin Com Microbiology Microbiology Results: Microbiology 01/09/23 Unknown Urine Culture - Preliminary Urine clean catch - Urine hartley top Gram negative gaby 01/09/23 12:17 Blood Culture - Preliminary Blood - Venous Prelim: GNR Gram Stain only Assessment and Plan (1) Bacteremia: Status: Acute Plan 82yo M with CAD, ischemic CM, HF with mildly reduced EF, prostatism Presenting with acute onset of rigors/fever and found to be septic with hypotension. Workup revealed Gram-negative bacteremia. Question of UTI + diverticulitis # sepsis due to GNR bacteremia # UTI # sigmoid diverticulitis - d#2 ceftriaxone + metronidazole, follow BCx + UCx # hypotension - resolved, held lisinopril, continue metoprolol # chronic HFrEF - held lisinopril, continue metoprolol # CAD - continue ASA, atorvastatin # VTE ppx: LMWH # dispo: eventual home In my clinical judgment, the patient requires continued inpatient hospitalization for the following reasons: IV ABX for bacteremia Time Spent With Patient Time: Total time managing care of this patient today __45__ minutes. Quality Stroke Does the patient have a stroke diagnosis?: No VTE Prior VTE?: No VTE Risk Level:: Medical - moderate - high VTE Device Contraindication: Treatment Not Indicated VTE Drug Contraindication: N/A - Med Ordered
[2023-01-10] MEDS: cefTRIAXone sodium 1 GM in 0.9 % Sodium Chloride 50 ML IV (14:16)
--- NOTE | 2023-01-10 15:02 | MHC.CM.PN ---
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
[2023-01-10] MEDS: Tamsulosin HCL 0.4 MG CAPSULE PO (17:00)
[2023-01-10] MEDS: Enoxaparin Sodium 40 MG/0.4 ML SYRINGE SUBCUT (17:01)
[2023-01-10] MEDS: Atorvastatin Calcium 80 MG TABLET PO (19:56)
[2023-01-11] MEDS: 0.9 % Sodium Chloride 1,000 ML 75 ML IVCONT (00:01)
[2023-01-11 03:21] VITALS: BP 114/54; PULSE 52; RESP 16; TEMP 36.1; O2SAT 93
[2023-01-11] MEDS: Omeprazole 20 MG CAPSULE.DR PO (05:36)
[2023-01-11 05:53] LABS: Hematocrit 36.9 % (42.0-52.0); Hemoglobin 11.8 g/dl (14.0-18.0); Mean Corpuscular Hemoglobin 27.7 pg (27.0-33.0); Mean Corpuscular Volume 86.6 fL (80.0-98.0); Mean Platelet Volume 11.1 fL (9.4-12.4); Platelet Count 161 X10*3/uL (160-400); Red Blood Count 4.26 X10*6/uL (4.60-5.80); Red Cell Distribution Width 14.2 % (11.0-16.0); White Blood Count 9.5 X10*3/uL (4.8-10.8)
[2023-01-11 06:09] LABS: Anion Gap 11 (12-20); Blood Urea Nitrogen 15 mg/dL (9-16); C Reactive Protein 2.95 mg/dL (< or = 0.50); Calcium 7.9 mg/dL (8.4-10.2); Carbon Dioxide 20 mmol/L (22-29); Chloride 113 mmol/L (96-108); Creatinine Clr Calc Pharmacy 60.8; Estimated Glomerular Filt Rate > 60; Glucose Random 93 mg/dL (60-115); Sodium 140 mmol/L (135-145)
--- NOTE | 2023-01-11 06:11 | PC.NURSE ---
VSS. Telemetry SB 50's. No c/o weakness, dizziness. No c/o pain. IV fluids and IV antibiotics as ordered. Pt slept intermittently, snored most of the night. Pt ambulates independently. Will continue to monitor.
[2023-01-11 07:24] VITALS: BP 136/63; PULSE 53; RESP 18; TEMP 36.6; O2SAT 95
[2023-01-11] MEDS: Aspirin Enteric Coated 81 MG TABLET.DR PO (09:11)
[2023-01-11] MEDS: Metoprolol Succinate ER 50 MG TAB.ER.24H PO (09:11)
[2023-01-11] MEDS: metroNIDAZOLE/NS 500 MG/100 ML PIGGYBACK 100 MG IV ×3 (09:12→16:39)
[2023-01-11] MEDS: 0.9 % Sodium Chloride Flush 3 ML SYRINGE IVFLUSH ×2 (09:12→20:07)
[2023-01-11 09:15] VITALS: BP 127/65; PULSE 60
--- NOTE | 2023-01-11 11:07 | P.PNIM_ITS ---
Subjective Subjective Date of Service: 01/11/23 Interval History: This history was taken in Sinhala from the patient. Feels entirely well. No fever/chills. No abd pain. No back pain. No dysuria. Tolerating diet. Review of Systems Review of Systems: Yes all other systems are reviewed and are negative Physical Exam Vital Signs: Vital Signs: Last Vital Signs Temp 97.8 F 01/11/23 07:24 Pulse 60 01/11/23 09:15 Resp 18 01/11/23 07:24 BP 127/65 01/11/23 09:15 Pulse Ox 95 01/11/23 07:24 O2 Del Method Room Air 01/11/23 07:24 BMI result Body Mass Index 27.1 Gen: in no acute distress HEENT: sclera anicteric, moist mucus membranes Neck: supple Lungs: clear to auscultation bilaterally Heart: regular rate and rhythm, no murmurs Abd: soft, non-tender, non-distended Ext: no edema Skin: warm/well-perfused Neuro: alert and oriented x3, no focal findings Psych: appropriate affect Objective Data Active Medications Acetaminophen (Acetaminophen 325 Mg Tablet) 650 mg PO Q6H PRN PRN Reason: Pain, Mild (Pain Scale 1-3) Last Admin: 01/09/23 23:36 Dose: 650 mg Documented By: JASEN Aspirin (Aspirin Enteric Coated 81 Mg Tablet.) 81 mg PO DAILY [facility] Last Admin: 01/11/23 09:11 Dose: 81 mg Documented By: GENOVEVA Atorvastatin Calcium (Atorvastatin Calcium 80 Mg Tablet) 80 mg PO BEDTIME [facility] Last Admin: 01/10/23 19:56 Dose: 80 mg Documented By: CELIA Enoxaparin Sodium (Enoxaparin Sodium 40 Mg/0.4 Ml Syringe) 40 mg SUBCUT Q24H [facility] Last Admin: 01/10/23 17:01 Dose: 40 mg Documented By: JIGNA Fluticasone Propionate (Fluticasone Propionate Nasal 16 Gm [place]) 2 spray NOSTRIL-B DAILY [facility] Last Admin: 01/10/23 09:42 Dose: 2 spray Documented By: JIGNA Ceftriaxone Sodium 1 gm/ (Sodium Chloride) 50 mls @ 100 mls/hr IV Q24H [facility] Last Infusion: 01/10/23 14:58 Dose: 0 mls/hr Documented By: JIGNA Metronidazole (Flagyl) 500 mg in 100 mls @ 100 mls/hr IV Q8H [facility] Last Infusion: 01/11/23 10:21 Dose: 0 mls/hr Documented By: GENOVEVA Sodium Chloride (Ns) 1,000 mls @ 75 mls/hr IVCONT .[id number] [facility] Last Admin: 01/11/23 00:01 Dose: 75 mls/hr Documented By: CELIA Metoprolol Succinate (Metoprolol Succinate Er 50 Mg Tab.Er.24h) 50 mg PO DAILY [facility]; Protocol Last Admin: 01/11/23 09:11 Dose: 50 mg Documented By: GENOVEVA Omeprazole (Omeprazole 20 Mg Capsule.Dr) 20 mg PO DAILY@0630 [facility] Last Admin: 01/11/23 05:36 Dose: 20 mg Documented By: CELIA Ondansetron HCl (Ondansetron Hcl 4 Mg/2 Ml Vial) 4 mg IVPUSH Q8H PRN PRN Reason: Nausea and Vomiting Pharmacy Consult (Consult Rx Perform Med Rec) 1 each MISCELLANE ONCE PRN PRN Reason: Consult order Sodium Chloride (0.9 % Sodium Chloride Flush 3 Ml Syringe) 3 ml IVFLUSH QSHIFT [facility] Last Admin: 01/11/23 09:12 Dose: 3 ml Documented By: GENOVEVA Tamsulosin HCl (Tamsulosin Hcl 0.4 Mg Capsule) 0.4 mg PO DAILY@1630 [facility] Last Admin: 01/10/23 17:00 Dose: 0.4 mg Documented By: JIGNA Labs 01/11/23 05:04 01/11/23 05:04 Labs: Laboratory Results - last 24 hr 01/11/23 01/11/23 05:04 05:04 MCV 86.6 MCH 27.7 MCHC 32.0 RDW 14.2 Plt Count 161 MPV 11.1 Absolute Nucleated RBC 0.000 Nucleated RBC % (auto) 0.0 Anion Gap 11 L Estim Creat Clear Calc 60.8 Estimated GFR > 60 Random Glucose 93 Calcium 7.9 L D C-Reactive Protein 2.95 H Microbiology Microbiology Results: Microbiology 01/09/23 12:17 Blood Culture - Preliminary Blood - Venous Gram negative gaby 03/24/23 Unknown Urine Culture - Final Urine clean catch - Urine hartley top Klebsiella oxytoca 01/10/23 00:20 Blood Culture - Preliminary Blood - Venous No growth after 24 hours. 01/10/23 00:20 Blood Culture - Preliminary Blood - Venous No growth after 24 hours. 01/09/23 12:17 Blood Culture - Preliminary Blood - Venous No growth after 24 hours. Assessment and Plan (1) Bacteremia: Status: Acute Plan d#3 82yo M with CAD, ischemic CM, HF with mildly reduced EF, prostatism Presenting with acute onset of rigors/fever and found to be septic with hypotension. Workup revealed Gram-negative bacteremia + UTI, possible diverticulitis # sepsis due to GNR bacteremia # UTI: Klebsiella oxytoca resistant to ampicillin # sigmoid diverticulitis - d#3 ceftriaxone + metronidazole, follow BCx, ID consult # hypotension - resolved, held lisinopril, continue metoprolol # chronic HFrEF - held lisinopril, continue metoprolol # CAD - continue ASA, atorvastatin # VTE ppx: LMWH # dispo: eventual home hopefully tomorrow In my clinical judgment, the patient requires continued inpatient hospitalization for the following reasons: IV ABX for bacteremia I updated the pt's son by phone Time Spent With Patient Time: Total time managing care of this patient today ___35_ minutes. Quality Stroke Does the patient have a stroke diagnosis?: No VTE Prior VTE?: No VTE Risk Level:: Medical - moderate - high VTE Device Contraindication: Treatment Not Indicated VTE Drug Contraindication: N/A - Med Ordered
[2023-01-11] MEDS: Fluticasone Propionate Nasal 16 GM SPRAY 2 SPRAY NOSTRIL-B (11:24)
[2023-01-11] MEDS: cefTRIAXone sodium 1 GM in 0.9 % Sodium Chloride 50 ML IV (14:00)
[2023-01-11 15:54] VITALS: BP 129/61; PULSE 46; RESP 18; TEMP 36.6; O2SAT 96
[2023-01-11] MEDS: Tamsulosin HCL 0.4 MG CAPSULE PO (16:39)
[2023-01-11] MEDS: Enoxaparin Sodium 40 MG/0.4 ML SYRINGE SUBCUT (17:48)
[2023-01-11 19:58] VITALS: BP 146/65; PULSE 50; RESP 20; TEMP 36.6; O2SAT 96
[2023-01-11] MEDS: Atorvastatin Calcium 80 MG TABLET PO (20:09)
[2023-01-11 23:42] VITALS: BP 140/65; PULSE 56; RESP 19; TEMP 36.3; O2SAT 97
[2023-01-12] MEDS: metroNIDAZOLE/NS 500 MG/100 ML PIGGYBACK 100 MG IV ×4 (00:14→20:12)
[2023-01-12 04:00] VITALS: BP 125/57; PULSE 51; RESP 18; TEMP 36.5; O2SAT 96
[2023-01-12] MEDS: Omeprazole 20 MG CAPSULE.DR PO (05:51)
[2023-01-12 07:14] VITALS: BP 150/68; PULSE 56; RESP 17; TEMP 36.9; O2SAT 96
[2023-01-12] MEDS: Aspirin Enteric Coated 81 MG TABLET.DR PO (09:14)
[2023-01-12] MEDS: Fluticasone Propionate Nasal 16 GM SPRAY 2 SPRAY NOSTRIL-B (09:14)
[2023-01-12 11:29] VITALS: BP 149/68; PULSE 58; RESP 18; TEMP 36.3; O2SAT 97
--- NOTE | 2023-01-12 12:45 | MHC.CM.PN ---
POSSIBLE RETURN HOME TODAY - PENDING BLOOD CX RESULTS.
[2023-01-12] MEDS: cefTRIAXone sodium 1 GM in 0.9 % Sodium Chloride 50 ML IV (13:15)
--- NOTE | 2023-01-12 13:51 | P.PNIM_ITS ---
Subjective Subjective Date of Service: 01/12/23 Interval History: This history was taken in Sami from the patient. No fever/chills no nausea/vomiting feels entirely well Review of Systems Review of Systems: Yes all other systems are reviewed and are negative Physical Exam Vital Signs: Vital Signs: Last Vital Signs Temp 97.4 F 01/12/23 11:29 Pulse 58 01/12/23 11:29 Resp 18 01/12/23 11:29 BP 149/68 H 01/12/23 11:29 Pulse Ox 97 01/12/23 11:29 O2 Del Method Room Air 01/12/23 11:29 BMI result Body Mass Index 27.1 Gen: in no acute distress HEENT: sclera anicteric, moist mucus membranes Neck: supple Lungs: clear to auscultation bilaterally Heart: regular rate and rhythm, no murmurs Abd: soft, non-tender, non-distended Ext: no edema Skin: warm/well-perfused Neuro: alert and oriented x3, no focal findings Psych: appropriate affect Objective Data Active Medications Acetaminophen (Acetaminophen 325 Mg Tablet) 650 mg PO Q6H PRN PRN Reason: Pain, Mild (Pain Scale 1-3) Last Admin: 01/09/23 23:36 Dose: 650 mg Documented By: JASEN Aspirin (Aspirin Enteric Coated 81 Mg Tablet.) 81 mg PO DAILY [facility] Last Admin: 01/12/23 09:14 Dose: 81 mg Documented By: BAO Atorvastatin Calcium (Atorvastatin Calcium 80 Mg Tablet) 80 mg PO BEDTIME [facility] Last Admin: 01/11/23 20:09 Dose: 80 mg Documented By: LEONARD Enoxaparin Sodium (Enoxaparin Sodium 40 Mg/0.4 Ml Syringe) 40 mg SUBCUT Q24H [facility] Last Admin: 01/11/23 17:48 Dose: 40 mg Documented By: GENOVEVA Fluticasone Propionate (Fluticasone Propionate Nasal 16 Gm [place]) 2 spray NOSTRIL-B DAILY [facility] Last Admin: 01/12/23 09:14 Dose: 2 spray Documented By: BAO Ceftriaxone Sodium 1 gm/ (Sodium Chloride) 50 mls @ 100 mls/hr IV Q24H [facility] Last Infusion: 01/12/23 13:47 Dose: 0 mls/hr Documented By: BAO Metronidazole (Flagyl) 500 mg in 100 mls @ 100 mls/hr IV Q8H [facility] Last Infusion: 01/12/23 10:18 Dose: 0 mls/hr Documented By: BAO Metoprolol Succinate (Metoprolol Succinate Er 50 Mg Tab.Er.24h) 50 mg PO DAILY [facility]; Protocol Last Admin: 01/12/23 07:27 Dose: Not Given Documented By: BAO Non-Admin Reason: See Note Omeprazole (Omeprazole 20 Mg Capsule.) 20 mg PO DAILY@0630 [facility] Last Admin: 01/12/23 05:51 Dose: 20 mg Documented By: LEONARD Ondansetron HCl (Ondansetron Hcl 4 Mg/2 Ml Vial) 4 mg IVPUSH Q8H PRN PRN Reason: Nausea and Vomiting Pharmacy Consult (Consult Rx Perform Med Rec) 1 each MISCELLANE ONCE PRN PRN Reason: Consult order Sodium Chloride (0.9 % Sodium Chloride Flush 3 Ml Syringe) 3 ml IVFLUSH QSHIFT [facility] Last Admin: 01/12/23 07:27 Dose: Not Given Documented By: BAO Non-Admin Reason: See Note Tamsulosin HCl (Tamsulosin Hcl 0.4 Mg Capsule) 0.4 mg PO DAILY@1630 [facility] Last Admin: 01/11/23 16:39 Dose: 0.4 mg Documented By: JERUSIA Labs 01/11/23 05:04 01/11/23 05:04 Microbiology Microbiology Results: Microbiology 01/09/23 12:17 Blood Culture - Preliminary Blood - Venous Gram negative gaby Prelim: GPR Gram Stain only 01/09/23 12:17 Blood Culture - Final Blood - Venous Escherichia coli 01/10/23 00:20 Blood Culture - Preliminary Blood - Venous No growth after 48 hours. 01/10/23 00:20 Blood Culture - Preliminary Blood - Venous No growth after 48 hours. Assessment and Plan (1) Bacteremia: Status: Acute Plan d#4 82yo M with CAD, ischemic CM, HF with mildly reduced EF, prostatism Presenting with acute onset of rigors/fever and found to be septic with hypotension. Workup revealed Gram-negative bacteremia + UTI, possible diverticulitis # sepsis due to GNR bacteremia: [place]-sensitive E coli # UTI: Klebsiella oxytoca resistant to ampicillin # sigmoid diverticulitis - d#4 ceftriaxone + metronidazole, follow BCx: - 1 of 2 BCx from 01/09 growing pansensitive E coli - the other BCx from 01/09 growing GNR + stained GPR, discussed with Micro, should have ID tomorrow - subsequent BCx from 01/10 negative - ID consult pending # hypotension - resolved, resume lisinopril, continue metoprolol # chronic HFrEF - lisinopril + metoprolol # CAD - continue ASA, atorvastatin # VTE ppx: LMWH # code: full # dispo: eventual home hopefully tomorrow In my clinical judgment, the patient requires continued inpatient hospitalization for the following reasons: IV ABX for bacteremia pending BCx final Time Spent With Patient Time: Total time managing care of this patient today _35___ minutes. Quality Stroke Does the patient have a stroke diagnosis?: No VTE Prior VTE?: No VTE Risk Level:: Medical - moderate - high VTE Device Contraindication: Treatment Not Indicated VTE Drug Contraindication: N/A - Med Ordered
[2023-01-12] MEDS: lisinopriL 2.5 MG TABLET PO (14:02)
[2023-01-12 14:41] VITALS: BP 141/80; PULSE 62; RESP 18; TEMP 36.6; O2SAT 96
--- NOTE | 2023-01-12 16:38 | P.CNID_ITS ---
History of Present Illness Data of Consult Service Date: 01/12/23 Requesting physician: Timoteo Riggs Primary Care Provider: Rashmi Finnegan NP HPI Reason for consult: sepsis He presents with perineal discomfort 04/27 as well as urinary retention and shaking chills for a day. He has prostate enlargement as well as right lower back pain. He has gram negative bacteremia Klebsiella 01/09. Review of Systems Review of Systems: Yes all other systems are reviewed and are negative PMFSH Past Medical History Medical History Atherosclerotic cardiovascular disease Hypercholesteremia Hypertension Sleep apnea Urinary retention Family History Family History Father No problems noted. Mother No problems noted. Family history: reviewed and not pertinent Surgical History Surgical History History of coronary artery bypass graft (~2006) Social History Social History Household Members: Spouse and Children Housing: House Do you presently have visiting nurse or other home services: No Patient Tobacco Use Status: Never used Tobacco e-Cigarette/Vaping Use: Never Used service: No Current occupational status: retired [employer] Allergies Allergy/AdvReac Type Severity Reaction Status Date / Time No Known Allergies Allergy Verified 01/09/23 11:40 Active Medications: Current Medications Acetaminophen (Acetaminophen 325 Mg Tablet) 650 mg PO Q6H PRN PRN Reason: Pain, Mild (Pain Scale 1-3) Last Admin: 01/09/23 23:36 Dose: 650 mg Aspirin (Aspirin Enteric Coated 81 Mg Tablet.) 81 mg PO DAILY [facility] Last Admin: 01/12/23 09:14 Dose: 81 mg Atorvastatin Calcium (Atorvastatin Calcium 80 Mg Tablet) 80 mg PO BEDTIME [facility] Last Admin: 01/11/23 20:09 Dose: 80 mg Enoxaparin Sodium (Enoxaparin Sodium 40 Mg/0.4 Ml Syringe) 40 mg SUBCUT Q24H [facility] Last Admin: 01/11/23 17:48 Dose: 40 mg Fluticasone Propionate (Fluticasone Propionate Nasal 16 Gm [place]) 2 spray NOSTRIL-B DAILY [facility] Last Admin: 01/12/23 09:14 Dose: 2 spray Ceftriaxone Sodium 1 gm/ (Sodium Chloride) 50 mls @ 100 mls/hr IV Q24H [facility] Last Infusion: 01/12/23 13:47 Dose: Infused Metronidazole (Flagyl) 500 mg in 100 mls @ 100 mls/hr IV Q8H [facility] Last Infusion: 01/12/23 10:18 Dose: Infused Lisinopril (Lisinopril 2.5 Mg Tablet) 2.5 mg PO DAILY [facility]; Protocol Last Admin: 01/12/23 14:02 Dose: 2.5 mg Metoprolol Succinate (Metoprolol Succinate Er 50 Mg Tab.Er.24h) 50 mg PO DAILY [facility]; Protocol Last Admin: 01/12/23 07:27 Dose: Not Given Omeprazole (Omeprazole 20 Mg Capsule.Dr) 20 mg PO DAILY@0630 [facility] Last Admin: 01/12/23 05:51 Dose: 20 mg Ondansetron HCl (Ondansetron Hcl 4 Mg/2 Ml Vial) 4 mg IVPUSH Q8H PRN PRN Reason: Nausea and Vomiting Pharmacy Consult (Consult Rx Perform Med Rec) 1 each MISCELLANE ONCE PRN PRN Reason: Consult order Sodium Chloride (0.9 % Sodium Chloride Flush 3 Ml Syringe) 3 ml IVFLUSH QSHIFT [facility] Last Admin: 01/12/23 14:33 Dose: Not Given Tamsulosin HCl (Tamsulosin Hcl 0.4 Mg Capsule) 0.4 mg PO DAILY@1630 [facility] Last Admin: 01/11/23 16:39 Dose: 0.4 mg Home Medications Medication Instructions Recorded Confirmed Last Taken Type aspirin 81 mg tablet,delayed 81 mg PO DAILY 01/22/22 01/09/23 Unknown History release lisinopril 2.5 mg tablet 2.5 mg PO DAILY 01/22/22 01/09/23 Unknown History omeprazole 20 mg capsule,delayed 20 mg PO DAILY 01/22/22 01/09/23 Unknown History release metoprolol succinate 50 mg 50 mg PO DAILY 05/13/22 01/09/23 Unknown History tablet,extended release 24 hr atorvastatin 80 mg tablet 80 mg PO BEDTIME 01/09/23 01/09/23 Unknown History diclofenac sodium 1 % topical gel 2 g topical QD-QID PRN PAIN IN 01/09/23 01/09/23 Unknown History RIGHT KNEE fluticasone propionate 50 2 spray intranasal DAILY 01/09/23 01/09/23 Unknown History mcg/actuation nasal spray,suspension tamsulosin 0.4 mg capsule 0.4 mg PO DAILY@1630 01/09/23 01/09/23 Unknown History Physical Exam Vital Signs: Vital Signs: Last Vital Signs Temp 97.8 F 01/12/23 14:41 Pulse 62 01/12/23 14:41 Resp 18 01/12/23 14:41 BP 141/80 H 01/12/23 14:41 Pulse Ox 96 01/12/23 14:41 O2 Del Method Room Air 01/12/23 14:41 BMI result Body Mass Index 27.1 Const: General: cooperative HEENT: Head: Yes normal to inspection Face and sinus: Yes normal facial exam Mouth: Normal oral and palatal mucosa present Teeth and gingiva: dentition normal Eyes: General: appearance normal, both eyes and all related structures Pupils: Equal, round and reactive pupils present Resp: Effort & Inspection: normal respiratory effort Cardio: Rate: regular rate Rhythm: regular rhythm GI: Palpation (GI): Soft to palpation and nontender : General: Yes no CVA tenderness Back/Spine/Pelvis: Back: no CVA tenderness Skin: General skin exam: no rashes or lesions noted Neuro: General: moves all extremities Cranial nerves: Yes Equal, round and reactive pupils present Extrem: General: Yes normal to inspection Psych: Appearance: grossly normal Results Labs 01/11/23 05:04 01/11/23 05:04 Microbiology Microbiology Results: Microbiology 01/09/23 12:17 Blood - Venous Blood Culture - Preliminary Gram negative gaby Prelim: GPR Gram Stain only 01/09/23 12:17 Blood - Venous Blood Culture - Final Escherichia coli 01/10/23 00:20 Blood - Venous Blood Culture - Preliminary No growth after 48 hours. 01/10/23 00:20 Blood - Venous Blood Culture - Preliminary No growth after 48 hours. 01/09/23 Unknown Urine clean catch - Urine hartley top Urine Culture - Final Klebsiella oxytoca Assessment and Plan (1) Bacteremia: Status: Acute This is more likely urine than abdominal source (diverticulitis doesnt look remarkable). He has pyuria He has no obvious obstruction. (2) Acute UTI: Status: Acute Plan Would continue CTX and Flagyl for now Probable po Ceftin and Flagyl as outpatient 10 days Check U/S evaluate abnormality abdomen. Time Spent With Patient Time: Total time managing care of this patient today ____ minutes.
[2023-01-12] MEDS: Tamsulosin HCL 0.4 MG CAPSULE PO (17:25)
[2023-01-12] MEDS: Enoxaparin Sodium 40 MG/0.4 ML SYRINGE SUBCUT (17:25)
[2023-01-12 19:04] VITALS: BP 160/74; PULSE 63; RESP 18; TEMP 36.7; O2SAT 95
[2023-01-12] MEDS: Atorvastatin Calcium 80 MG TABLET PO (20:12)
[2023-01-13] VITALS: BP 143/67; PULSE 57; RESP 18; TEMP 36.4; O2SAT 95
[2023-01-13 03:45] VITALS: BP 143/65; PULSE 78; RESP 18; TEMP 36.6; O2SAT 92
[2023-01-13] MEDS: metroNIDAZOLE/NS 500 MG/100 ML PIGGYBACK 100 MG IV ×3 (03:56→20:33)
[2023-01-13] MEDS: Omeprazole 20 MG CAPSULE.DR PO (06:06)
[2023-01-13 07:21] VITALS: BP 136/68; PULSE 64; RESP 18; TEMP 36.9; O2SAT 93
[2023-01-13] MEDS: Metoprolol Succinate ER 50 MG TAB.ER.24H PO (07:52)
[2023-01-13] MEDS: 0.9 % Sodium Chloride Flush 3 ML SYRINGE IVFLUSH ×3 (07:52→20:33)
[2023-01-13] MEDS: Aspirin Enteric Coated 81 MG TABLET.DR PO (07:52)
[2023-01-13] MEDS: lisinopriL 2.5 MG TABLET PO (07:52)
[2023-01-13] MEDS: Fluticasone Propionate Nasal 16 GM SPRAY 2 SPRAY NOSTRIL-B (07:53)
--- NOTE | 2023-01-13 11:42 | P.PNIM_ITS ---
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 No fevers, no chills, no lightheadedness or dizziness,, no acute issues overnight. Review of Systems Review of Systems: Yes all other systems are reviewed and are negative Physical Exam 2 Vital Signs: Vital Signs: Last Vital Signs Temp 98.5 F 01/13/23 07:21 Pulse 64 01/13/23 07:21 Resp 18 01/13/23 07:21 BP 136/68 01/13/23 07:21 Pulse Ox 93 01/13/23 07:21 O2 Del Method Room Air 01/13/23 07:21 BMI result Body Mass Index 27.1 Const: Other: Gen: Awake alert x3, in no acute distress Neck: supple Lungs: clear to auscultation bilaterally Heart: regular rate and rhythm, no murmurs Abd: soft, non-tender, non-distended, bowel sounds audible Ext: no edema Skin: warm/well-perfused Neuro: alert and oriented x3, no focal findings Psych: appropriate affect Objective Data Active Medications Acetaminophen (Acetaminophen 325 Mg Tablet) 650 mg PO Q6H PRN PRN Reason: Pain, Mild (Pain Scale 1-3) Last Admin: 01/09/23 23:36 Dose: 650 mg Documented By: JASEN Aspirin (Aspirin Enteric Coated 81 Mg Tablet.) 81 mg PO DAILY [facility] Last Admin: 01/13/23 07:52 Dose: 81 mg Documented By: JIGNA Atorvastatin Calcium (Atorvastatin Calcium 80 Mg Tablet) 80 mg PO BEDTIME [facility] Last Admin: 01/12/23 20:12 Dose: 80 mg Documented By: PACO Enoxaparin Sodium (Enoxaparin Sodium 40 Mg/0.4 Ml Syringe) 40 mg SUBCUT Q24H [facility] Last Admin: 01/12/23 17:25 Dose: 40 mg Documented By: FARRAHSOFALEJANDRA Fluticasone Propionate (Fluticasone Propionate Nasal 16 Gm [place]) 2 spray NOSTRIL-B DAILY [facility] Last Admin: 01/13/23 07:53 Dose: 2 spray Documented By: JIGNA Ceftriaxone Sodium 1 gm/ (Sodium Chloride) 50 mls @ 100 mls/hr IV Q24H [facility] Last Infusion: 01/12/23 13:47 Dose: 0 mls/hr Documented By: BAO Metronidazole (Flagyl) 500 mg in 100 mls @ 100 mls/hr IV Q8H [facility] Last Admin: 01/13/23 11:13 Dose: 100 mls/hr Documented By: JIGNA Lisinopril (Lisinopril 2.5 Mg Tablet) 2.5 mg PO DAILY [facility]; Protocol Last Admin: 01/13/23 07:52 Dose: 2.5 mg Documented By: JIGNA Metoprolol Succinate (Metoprolol Succinate Er 50 Mg Tab.Er.24h) 50 mg PO DAILY [facility]; Protocol Last Admin: 01/13/23 07:52 Dose: 50 mg Documented By: JIGNA Omeprazole (Omeprazole 20 Mg Capsule.Dr) 20 mg PO DAILY@0630 [facility] Last Admin: 01/13/23 06:06 Dose: 20 mg Documented By: YANIRA Ondansetron HCl (Ondansetron Hcl 4 Mg/2 Ml Vial) 4 mg IVPUSH Q8H PRN PRN Reason: Nausea and Vomiting Pharmacy Consult (Consult Rx Perform Med Rec) 1 each MISCELLANE ONCE PRN PRN Reason: Consult order Sodium Chloride (0.9 % Sodium Chloride Flush 3 Ml Syringe) 3 ml IVFLUSH QSHIFT [facility] Last Admin: 01/13/23 07:52 Dose: 3 ml Documented By: JIGNA Tamsulosin HCl (Tamsulosin Hcl 0.4 Mg Capsule) 0.4 mg PO DAILY@1630 [facility] Last Admin: 01/12/23 17:25 Dose: 0.4 mg Documented By: BAO Labs 01/11/23 05:04 01/11/23 05:04 Microbiology Microbiology Results: Microbiology 01/09/23 12:17 Blood Culture - Preliminary Blood - Venous Pseudomonas species Gram positive gaby 01/11/23 20:43 Blood Culture - Preliminary Blood - Venous No growth after 24 hours. 01/11/23 20:42 Blood Culture - Preliminary Blood - Venous No growth after 24 hours. 01/09/23 12:17 Blood Culture - Final Blood - Venous Escherichia coli Assessment and Plan (1) Bacteremia: Status: Acute Plan d#4 82yo M with CAD, ischemic CM, HF with mildly reduced EF, prostatism Presenting with acute onset of rigors/fever and found to be septic with hypotension. Workup revealed Gram-negative bacteremia + UTI, possible diverticulitis # sepsis due to GNR bacteremia # UTI: Klebsiella oxytoca resistant to ampicillin, # sigmoid diverticulitis - d#5 ceftriaxone + metronidazole, - 1 of 2 BCx from 01/09 growing pansensitive E coli - the other BCx from 01/09 growing Pseudomonas and Gram-positive rods final sensitivities pending - subsequent BCx from 01/10 negative - follow final culture report, CT abdomen and pelvis showed mild acute diverticulitis no hydro ureteral nephrosis moderate prostatomegaly, mild mural thickening of the bladder likely secondary to distension. Will discuss antibiotic coverage with id # hypotension resolved continue lisinopril and metoprolol # chronic HFrEF no acute exacerbation continue lisinopril + metoprolol # CAD- continue ASA, atorvastatin # VTE ppx: LMWH # code: full # dispo: eventual home In my clinical judgment, the patient requires continued inpatient hospitalization for the following reasons: IV ABX for bacteremia pending BCx final Time Spent With Patient Time: Total time managing care of this patient today ____ minutes. Quality Stroke Does the patient have a stroke diagnosis?: No VTE Prior VTE?: No VTE Risk Level:: Medical - moderate - high VTE Device Contraindication: Treatment Not Indicated VTE Drug Contraindication: N/A - Med Ordered
--- NOTE | 2023-01-13 13:46 | MHC.CM.PN ---
CASE MANAGEMENT FOLLOWING FOR PATIENT'S RETURN HOME
[2023-01-13] MEDS: cefTRIAXone sodium 1 GM in 0.9 % Sodium Chloride 50 ML IV (14:06)
[2023-01-13] MEDS: Piperacillin Sodium/Tazobactam 3.375 GM in 0.9 % Sodium Chloride 50 ML IV ×2 (14:50→21:37)
--- NOTE | 2023-01-13 15:52 | PM.IDPN ---
Subjective Subjective Date of Service: 01/13/23 Critical Care Time (minutes): 15 Comment: he looks well and no complaints Objective Data Labs 01/11/23 05:04 01/11/23 05:04 Microbiology Microbiology Results: Microbiology 01/09/23 12:17 Blood - Venous Blood Culture - Preliminary Pseudomonas species Gram positive gaby 01/11/23 20:43 Blood - Venous Blood Culture - Preliminary No growth after 24 hours. 01/11/23 20:42 Blood - Venous Blood Culture - Preliminary No growth after 24 hours. 01/09/23 12:17 Blood - Venous Blood Culture - Final Escherichia coli 01/10/23 00:20 Blood - Venous Blood Culture - Preliminary No growth after 48 hours. 01/10/23 00:20 Blood - Venous Blood Culture - Preliminary No growth after 48 hours. 01/09/23 Unknown Urine clean catch - Urine hartley top Urine Culture - Final Klebsiella oxytoca Physical Exam Vital Signs: Vital Signs: Last Vital Signs Temp 98.5 F 01/13/23 07:21 Pulse 64 01/13/23 07:21 Resp 18 01/13/23 07:21 BP 136/68 01/13/23 07:21 Pulse Ox 93 01/13/23 07:21 O2 Del Method Room Air 01/13/23 07:21 BMI result Body Mass Index 27.1 Const: General: cooperative HEENT: Head: Yes normal to inspection Face and sinus: Yes normal facial exam Mouth: Normal oral and palatal mucosa present Teeth and gingiva: dentition normal Eyes: General: appearance normal, both eyes and all related structures Pupils: Equal, round and reactive pupils present Resp: Effort & Inspection: normal respiratory effort Cardio: Rate: regular rate Rhythm: regular rhythm GI: Palpation (GI): Soft to palpation and nontender : General: Yes no CVA tenderness Back/Spine/Pelvis: Back: no CVA tenderness Skin: General skin exam: no rashes or lesions noted Neuro: General: moves all extremities Cranial nerves: Yes Equal, round and reactive pupils present Extrem: General: Yes normal to inspection Psych: Appearance: grossly normal Assessment and Plan Assessment and plan (1) Bacteremia: Problem details: now there is Pseudomonas also blood culture 01/09 gram positive gaby probable contaminant possible UTI with obstructive prostate symptoms diverticultis with perforation and secondary peritonitis also possible but no clinical discomfort Status: Acute (2) Acute UTI: Status: Acute (3) Acute diverticulitis: Status: Acute Plan Change to Zosyn cover Pseudomonas Prostate and abdominal u/s cover possible compressive/obstructive urinary pathology as seems more likely than diverticular cause Urology eval above. Time Spent With Patient Time: Total time managing care of this patient today ____ minutes.
[2023-01-13 16:23] VITALS: BP 118/63; PULSE 57; RESP 16; TEMP 36.2; O2SAT 96
[2023-01-13] MEDS: Enoxaparin Sodium 40 MG/0.4 ML SYRINGE SUBCUT (17:02)
[2023-01-13] MEDS: Tamsulosin HCL 0.4 MG CAPSULE PO (17:02)
[2023-01-13] MEDS: Atorvastatin Calcium 80 MG TABLET PO (20:37)
[2023-01-13 21:00] VITALS: BP 134/71; PULSE 62; RESP 16; TEMP 36.3; O2SAT 97
[2023-01-14] MEDS: Piperacillin Sodium/Tazobactam 3.375 GM in 0.9 % Sodium Chloride 50 ML IV ×2 (02:40→08:17)
[2023-01-14] MEDS: metroNIDAZOLE/NS 500 MG/100 ML PIGGYBACK 100 MG IV (03:11)
[2023-01-14 03:19] VITALS: BP 139/64; PULSE 64; RESP 18; TEMP 36.5; O2SAT 94
[2023-01-14] MEDS: Omeprazole 20 MG CAPSULE.DR PO (05:42)
[2023-01-14 07:31] VITALS: BP 114/82; PULSE 70; RESP 17; TEMP 36.4; O2SAT 95
[2023-01-14] MEDS: Metoprolol Succinate ER 50 MG TAB.ER.24H PO (08:12)
[2023-01-14] MEDS: lisinopriL 2.5 MG TABLET PO (08:12)
[2023-01-14] MEDS: Aspirin Enteric Coated 81 MG TABLET.DR PO (08:12)
[2023-01-14] MEDS: 0.9 % Sodium Chloride Flush 3 ML SYRINGE IVFLUSH (08:13)
[2023-01-14] MEDS: Fluticasone Propionate Nasal 16 GM SPRAY 2 SPRAY NOSTRIL-B (10:58)
--- NOTE | 2023-01-14 12:39 | PM.DS ---
DS: Providers Provider Date of Service: 01/14/23 Date of admission: 01/09/23 17:54 Primary care physician: Rashmi Finnegan NP Consults: 01/11/23 07:27 Consult to Infectious Diseases Routine Consulting [place] [facility] [place] Reason for consultation: GNR bacteremia. K. oxytoca urine ?diverticu ?source 01/14/23 07:30 Consult to Urology Routine Consulting Provider: Latoya Estrada Reason for consultation: prostatic nodule /bacteremia Has provider been notified: No DS: Diagnosis Discharge Diagnosis (1) Bacteremia: Status: Acute (2) Acute UTI: Status: Acute (3) Acute diverticulitis: Status: Acute DS: Summary Hospital Course Hospital Course: History of presenting illness: Date of Service: 01/09/23 Attending physician on admission: Timoteo Riggs Chief Complaint: Shaking chills Pt is an 82-year-old male with a PMH significant for?CAD s/p CABG in 2006, ischemic cardiomyopathy, LVEF 45-50% on ECHO 2020, ALBER, HTN, HLD, and urinary retention who presents to the ED with?shaking chills. Pt states symptoms began yesterday with right lower back pain. When he woke this morning he had subjective fever that was not measured and shaking chills.? Patient did not have any nausea, vomiting, abdominal pain, diarrhea.? Son is at bedside and states that father had similar symptoms 6 months ago. They came to the ED for evaluation but symptoms went away while they were waiting to be seen.? They were told by the doctor to present again to the ED if symptoms returned.? Patient states that he otherwise felt fine yesterday.? Patient does note he has had urinary urgency and retention lately, but does not think that it is any more than normal. Denies chest pain/pressure, palpitations. No SOB. Notes back pain has now resolved. In the ED patient was febrile at 100.7 and tachypneic at 26, satting 96% on RA. Labs were significant for leukocytosis of 14.4. UA positive for UTI. CXR showed no acute cardiopulmonary disease. CT?of abdomen and pelvis showed acute diverticulitis without evidence of perforation or abscess formation, and mild mural thickening in the urinary bladder possibly secondary to incomplete distension/chronic changes. EKG demonstrated normal sinus rhythm witn nonspecific ST and T wave abnormality. Pt was treated with acetaminophen, IVF, ceftriaxone, and metronidazole. Pt will be admitted to the hospital for treatment of acute diverticulitis and UTI with IV antibiotics. Hospital course: 82yo M with CAD, ischemic CM, HF with mildly reduced EF, prostatism,Presenting with acute onset of rigors/fever and found to be septic with hypotension.? Workup revealed Gram-negative bacteremia + UTI, possible diverticulitis # sepsis due to polymicrobial bacteremia, likely from urinary tract infection ,also CT abdomen showed mild sigmoid diverticulitis, urine culture grew Klebsiella oxytoca resistant to ampicillin, 1 blood culture grew Pseudomonas, 2nd blood culture grew E coli, initially treated with IV ceftriaxone and metronidazole, antibiotics subsequently changed to IV Zosyn to cover Pseudomonas and since final sensitivities are back patient is being discharged home on Levaquin 14 days, repeat blood cultures x2 are negative, abdominal and pelvic ultrasound showed no intraabdominal or pelvic abscess, patient noted to have 2 cm nodule arising from prostate gland and projecting into the bladder therefore recommend outpatient follow-up with Urology, patient blood pressure improved with IV hydration he and he has been placed back on antihypertensives with good blood pressure control. # chronic HFrEF no acute exacerbation continue lisinopril + metoprolol. # CAD- continue ASA, atorvastatin. Time Spent with Patient Time attestation: Total time managing care of this patient today ____ minutes. Discharge coordination time: Greater than 30 minutes Quality: Safe Use of Opioids Does Pt have an Active Cancer Diagnosis on the Problem List?: No Quality: Stroke Does the patient have a stroke diagnosis?: No Physical Exam Vital Signs: Vital Signs: Last Vital Signs Temp 97.5 F 01/14/23 07:31 Pulse 70 01/14/23 07:31 Resp 17 01/14/23 07:31 BP 114/82 01/14/23 07:31 Pulse Ox 95 01/14/23 07:31 O2 Del Method Room Air 01/14/23 07:31 BMI result Body Mass Index 27.1 Const: Other: Gen:? Awake alert x3, in no acute di stress Neck: suppl e Lungs: clear to auscultation bilat erally Heart: regu lar rate and rhyth m, no murmurs Abd: soft, non-tender, non-distended, aleta wel sounds audible Ext: no edema Ski n: warm/well-perfu sed Neuro: alert a nd oriented x3, no focal findings Ps ych: appropriate a ffect DS: Data Data Completed and Pending Labs on day of discharge: Preliminary micro results at discharge 01/09/23 12:17 Blood Culture - Preliminary Blood - Venous Pseudomonas aeruginosa Gram positive gaby 01/11/23 20:43 Blood Culture - Preliminary Blood - Venous No growth after 48 hours. 01/11/23 20:42 Blood Culture - Preliminary Blood - Venous No growth after 48 hours. 01/10/23 00:20 Blood Culture - Preliminary Blood - Venous No growth after 48 hours. 01/10/23 00:20 Blood Culture - Preliminary Blood - Venous No growth after 48 hours. Discharge Plan Discharge Anticipated Discharge Date/Time: 01/14/23 12:31 Patient Disposition: Home, Self-Care Discharge Diagnosis: sepsis due to Polymicrobial bacteremia UTI Hypotension Referrals: Rashmi Finnegan, [facility] [Primary Care Provider] - 1 Week Discharge Medications: New levofloxacin 500 mg tablet 500 mg PO DAILY 14 Days Qty: 14 0RF Continued atorvastatin 80 mg tablet 80 mg PO BEDTIME tamsulosin 0.4 mg Capsule 0.4 mg PO DAILY@1630 diclofenac sodium 1 % gel 2 g topical QD-QID PRN (Reason: PAIN IN RIGHT KNEE) fluticasone propionate 50 mcg/actuation Anderson,Suspension 2 spray INTRANASAL DAILY Rx Instructions: administer into each nostril omeprazole 20 mg capsule,delayed release(DR/EC) 20 mg PO DAILY lisinopril 2.5 mg tablet 2.5 mg PO DAILY aspirin 81 mg tablet,delayed release (DR/EC) 81 mg PO DAILY metoprolol succinate 50 mg tablet extended release 24 hr 50 mg PO DAILY Discharge Orders: Discharge Order (Routine); Ordered 01/14/23 Ordered By: Erlin Salguero Diet: Low fat, low cholesterol Activity on Discharge: As tolerated Stand Alone Forms: Patient Portal Discharge page Care Plan Goals: UTI/polymicrobial bacteremia take Levaquin 500 mg 1 tablet daily for 14 days Continue all home medications as before Return to check with recurrent fevers chills urinary frequency or urgency. Health Concerns: High cholesterol Plan of Treatment: Outpatient follow-up with primary care physician call to make an appointment Outpatient follow-up with Urology Dr. French Agrawal call for appointment, due to enlarged prostate and 2 cm nodule arising from the prostate gland Assessment: As above
--- NOTE | 2023-01-14 12:43 | MHC.CM.PN ---
PLAN IS HOME TODAY - SELF CARE RN AWARE
== END 2023-01-14 13:54 | disposition home or self-care (01) | DRG 720 ==
LOC: HO.ED 15:24 → HO.EDOVER 18:22 → HO.S3 18:49
PROVIDERS: Family Medicine; Internal Medicine; Physician Assistant; Admitting Provider Student in an Organized Health Care Education/Training Program; Emergency Provider Student in an Organized Health Care Education/Training Program; PCP Nurse Practitioner Primary Care; Visit Provider Hospitalist
DX: A41.89 Other specified sepsis (principal); I11.0 Hypertensive heart disease with heart failure; I95.9 Hypotension, unspecified; I50.22 Chronic systolic (congestive) heart failure; E78.00 Pure hypercholesterolemia, unspecified; Z95.1 Presence of aortocoronary bypass graft; I25.10 Atherosclerotic heart disease of native coronary artery without angina pectoris; K57.32 Diverticulitis of large intestine without perforation or abscess without bleeding; G47.33 Obstructive sleep apnea (adult) (pediatric); N40.1 Benign prostatic hyperplasia with lower urinary tract symptoms; R33.8 Other retention of urine; I25.5 Ischemic cardiomyopathy; N39.0 Urinary tract infection, site not specified; B96.89 Other specified bacterial agents as the cause of diseases classified elsewhere; B96.5 Pseudomonas (aeruginosa) (mallei) (pseudomallei) as the cause of diseases classified elsewhere; B96.20 Unspecified Escherichia coli [E. coli] as the cause of diseases classified elsewhere; Z16.11 Resistance to penicillins; Z20.822 Contact with and (suspected) exposure to COVID-19; Z79.51 Long term (current) use of inhaled steroids; Z79.82 Long term (current) use of aspirin; Z79.899 Other long term (current) drug therapy
CPT/HCPCS: 36415; 71045; 74177; 76700; 76857; 80048; 80076; 81001; 83605; 83735; 83880; 84145; 85025; 85027; 86140; 87040; 87077; 87086; 87088; 87186; 87205; 87635; 93005; 99285; J0696; J1650; J2543; Q9967

== ENCOUNTER 2023-11-12 10:02 | Outpatient (AMB) | payer MEDICAID, SELFPAY ==
[2023-11-12 10:07] VITALS: BP 140/60; PULSE 65; BMI 27.1
--- NOTE | 2023-11-12 10:07 | MHC.OFFVIS ---
Intake Vital Signs 11/12/23 10:07 Height 5 ft 8.5 in Weight 180 lb 12.465 oz BMI 27.1 BP 140/60 H Blood Pressure Location Lt brachial Position Sitting Pulse 65 Intake Visit Reasons: f/up Intake Note: f/up pt its feeling fine. Paper Twister Required: No Accompanied by: Son Allergies No Known Allergies Allergy (Verified 01/09/23 11:40) Medication List - Last Reconciled 11/12/23 by Parth Lubin MD atorvastatin 80 mg PO BEDTIME diclofenac sodium 1% 2 grams topical QD-QID PRN fluticasone propionate 50 mcg/actuation 2 sprays intranasal DAILY levofloxacin 500 mg PO DAILY 14 days lisinopril 2.5 mg PO DAILY metoprolol succinate ER 50 mg PO DAILY omeprazole 20 mg PO DAILY tamsulosin 0.4 mg PO DAILY@1630 HPI HPI Comments History of Present Illness Details Evan returns for follow-up regarding coronary disease. Originally from [facility]. Around 15+ years ago, he underwent coronary artery bypass surgery. However no details available. Overall, he is doing fine. No cardiac complaints like angina or shortness of breath or in fact anything cardiac sounding. Son acts as the bucket turner and he states no issues. Appropriate form signed. [facility] Medical History Atherosclerotic cardiovascular disease Hypercholesteremia Hypertension Sleep apnea Urinary retention Surgical History History of coronary artery bypass graft (~2006) Family History Father No problems noted. Mother No problems noted. Social History Household Members: Spouse and Children Housing: House Do you presently have visiting nurse or other home services: No Patient Tobacco Use Status: Never used Tobacco e-Cigarette/Vaping Use: Never Used service: No Current occupational status: retired Review of Systems Const Reports chills, Reports fatigue, Reports fever(s), Reports frequent falls, Reports weakness, Reports weight gain and Reports weight loss ENT Reports dizziness Card Reports chest pain, Reports leg edema, Reports lightheadedness, Reports palpitations, Reports dyspnea and Reports dyspnea on exertion Resp Reports cough, Reports dyspnea and Reports dyspnea on exertion GI Reports hematochezia Musc Reports abnormal gait, Reports muscle weakness, Reports numbness, Reports radiating pain into limb and Reports tingling Neuro Reports abnormal gait, Reports dizziness, Reports frequent falls, Reports numbness, Reports tingling and Reports weakness Endo Reports fatigue and Reports palpitations Physical Exam Vital Signs: Last Vital Signs Pulse 65 11/12/23 10:07 BP 140/60 H 11/12/23 10:07 BMI result Body Mass Index 27.1 Const General: comfortable and no acute distress Orientation/consciousness: patient oriented x3 HEENT Other: Unremarkable Head: Yes normal to inspection Neck Neck: Yes normal visual inspection Chest Chest palpation & inspection: normal inspection of the chest Resp Auscultation: clear to auscultation bilaterally Cardio Palpation: normal PMI Heart sounds: S1 normal heart sound present, S2 normal heart sound present, no gallops, no murmurs and no rubs GI Palpation (GI): Soft to palpation Back/Spine/Pelvis Other: unremarkable Skin General skin exam: no rashes or lesions noted Neuro General: patient oriented x3 Extrem General: Yes normal to inspection Psych Mental Status: mental status grossly normal Office Procedures EKG Details: EKG with sinus, 65/min, nonspecific ST-T changes; [place] [id number], Complete Assessment & Plan Assessment & Plan (1) Atherosclerotic cardiovascular disease: Code(s): I25.10 - Atherosclerotic heart disease of [place] coronary artery without angina pectoris (2) Ischemic cardiomyopathy: Code(s): I25.5 - Ischemic cardiomyopathy (3) Status post aorto-coronary artery bypass graft: Code(s): Z95.1 - Presence of aortocoronary bypass graft (4) Essential hypertension: Code(s): I10 - Essential (primary) hypertension (5) Other and unspecified hyperlipidemia: Code(s): E78.5 - Hyperlipidemia, unspecified Plan Echocardiogram 2020 with LVEF of 45-50%. Basal inferior, mid inferior and basal inferolateral hypokinesis. Myocardial perfusion imaging study 05/2022 with ischemia/infarct pattern in the basal to mid inferior wall. This correlates with the finding on echocardiogram. Clinically, he is got absolutely no symptoms like angina. Hence continue medications only. He has not been taking aspirin for some reason and hence can start low-dose aspirin. Script sent. Continue beta-blockers and high-dose statins. With regard high blood pressure, borderline readings. May discuss with his own PCP and possibly go up on lisinopril. We discussed about this today. Otherwise, follow-up in 1 year. They will call with any concerns. Medications: New aspirin (Adult Aspirin Regimen) 81 mg PO DAILY 90 tabs 3RF Coding Level of Care Code Est Pt Level 4 (24173) Diagnoses Atherosclerotic cardiovascular disease I25.10 Ischemic cardiomyopathy I25.5 Status post aorto-coronary artery bypass graft Z95.1 Essential hypertension I10 Other and unspecified hyperlipidemia E78.5 CPT Codes EKG - CPT: 63510-[id number], Complete ([id number])
== END 2023-11-12 10:30 | disposition home or self-care (01) ==
PROVIDERS: PCP Nurse Practitioner Primary Care; Visit Provider Internal Medicine
DX: I25.10 Atherosclerotic heart disease of native coronary artery without angina pectoris (principal); I25.5 Ischemic cardiomyopathy; Z95.1 Presence of aortocoronary bypass graft; I10 Essential (primary) hypertension; E78.5 Hyperlipidemia, unspecified
CPT/HCPCS: 93010; 99214

== ENCOUNTER → 2023-11-12 10:02 | Outpatient (BNVA) | payer MEDICAID, SELFPAY | PROVIDERS: PCP Nurse Practitioner Primary Care; Visit Provider Internal Medicine | DX: I25.10 Atherosclerotic heart disease of native coronary artery without angina pectoris (principal); I10 Essential (primary) hypertension; I25.5 Ischemic cardiomyopathy; E78.5 Hyperlipidemia, unspecified; Z95.1 Presence of aortocoronary bypass graft | CPT/HCPCS: 93005; 99212 ==

== ENCOUNTER 2024-04-13 11:12 | Outpatient (REF) | payer MEDICAID, SELFPAY ==
--- NOTE | ~2024-04-13 | US_ITS ---
EXAMINATION: US VENOUS ULTRASOUND WITH DOPPLER LOWER EXTREMITY, BILATERAL CLINICAL INFORMATION: Bilateral lower extremity edema COMPARISON: None available. TECHNIQUE: Ultrasound of the deep veins is performed from the hip to the calf with compression sonography and color and pulse Doppler assessment. Spectral analysis with color-flow imaging is performed. FINDINGS: RIGHT: There is normal venous compression and respiratory variation and augmented flow. The visualized common femoral vein, superficial femoral vein, profunda femoral vein, popliteal vein, and the trifurcation region shows no evidence of deep venous thrombosis. Manning's cyst in the popliteal fossa measuring 6.2 x 5.7 x 1.3 cm. LEFT: There is normal venous compression and respiratory variation and augmented flow. The visualized common femoral vein, superficial femoral vein, profunda femoral vein, popliteal vein, and the trifurcation region shows no evidence of deep venous thrombosis. Manning's cyst in the popliteal fossa measuring 3.1 x 5.8 x 1.5 cm. If the patient's symptoms persist, followup ultrasound in 5 days 7 days might be of value to exclude proximal propagation from a non-visualized calf vein. US/US venous duplex LE BI IMPRESSION: No DVT demonstrated in the bilateral lower extremity. Large bilateral Manning's cyst
== END 2024-04-13 11:13 | disposition home or self-care (01) ==
LOC: HO.US 11:12
PROVIDERS: Visit Provider Internal Medicine
DX: R60.0 Localized edema (principal); M79.671 Pain in right foot; M79.672 Pain in left foot
CPT/HCPCS: 93970

== ENCOUNTER 2024-04-19 09:31 | Outpatient (REF) | payer MEDICAID, SELFPAY ==
--- NOTE | 2024-04-19 09:35 | EMG_ITS ---
Bilateral tibial and peroneal motor studies were performed. Bilateral sural and superficial sensory studies were performed. Tibial H reflexes were obtained, and needle examination was performed. IMPRESSION: 1. Left lower lumbar radiculopathy. 2. Underlying mild and mostly sensory peripheral neuropathy. MD MICHAEL Davila/TUSHAR / [id number]
== END 2024-04-19 09:32 | disposition home or self-care (01) ==
LOC: HO.NEURO 09:31
PROVIDERS: PCP Internal Medicine; Visit Provider Internal Medicine
DX: M79.671 Pain in right foot (principal); M79.672 Pain in left foot
CPT/HCPCS: 95886; 95910

== ENCOUNTER 2024-05-04 08:53 | Outpatient (REF) | payer MEDICAID, SELFPAY ==
[2024-05-04 12:24] LABS: TSH reflex Free T4 3.82 uIU/mL (0.32-4.0)
[2024-05-04 14:13] LABS: Folate 7.2 ng/mL (> or = 4.0); Vitamin B12 274 pg/mL (200-900)
== END 2024-05-04 08:54 | disposition home or self-care (01) ==
LOC: HO.HHCL 08:53
PROVIDERS: Visit Provider Internal Medicine
DX: M79.671 Pain in right foot (principal); M79.672 Pain in left foot
CPT/HCPCS: 36415; 82607; 82746; 84443

== ENCOUNTER 2024-05-26 14:03 | Outpatient (AMB) | payer MEDICAID, SELFPAY ==
--- NOTE | 2024-05-26 14:13 | MHC.OFFVIS ---
Intake Visit Reasons: BPH/UTI/PVR Intake Note: New patient is present for BPH/Prostate Nodule ER visit December 2022 Patient was scheduled last year for follow up but due to no insurance patient had cancelled Urology Med: Tamsulosin Antibiotic Allergies:None Blood Thinner:Aspirn PVR:54 Dredge Pipeman Required: No Rugby League Footballer: Rugby League Footballer Present Accompanied by: Son Allergies No Known Allergies Allergy (Verified 05/26/24 14:21) Medication List - Last Reconciled 05/26/24 by Latoya Estrada MD aspirin (Adult Aspirin Regimen) 81 mg PO DAILY atorvastatin 80 mg PO BEDTIME diclofenac sodium 1% 2 grams topical QD-QID PRN fluticasone propionate 50 mcg/actuation 2 sprays intranasal DAILY lisinopril 2.5 mg PO DAILY metoprolol succinate ER 50 mg PO DAILY omeprazole 20 mg PO DAILY tamsulosin 0.4 mg PO DAILY HPI Comments Details: Evan is an 83 who was seen at [facility] 12/2022 for UTI. CTAP/w IV contrast noted mural thickening thickening of the bladder, and enlarged prostate, renal calculi or hydronephrosis. Urine and blood cultures were positive the patient was admitted for IV antibiotics. He was advised to follow-up with Urology, he states that he just got insurance. The patient is here with his son who interprets for him. He states that since his discharge he has been doing well he states he is taking the tamsulosin daily. Urinalysis is limits bladder PVR - 54 mL. I have discussed follow-up office cystoscopy. [facility] Medical History Atherosclerotic cardiovascular disease Sleep apnea Urinary retention Hypercholesteremia Hypertension Surgical History History of coronary artery bypass graft (~2006) Family History Father No problems noted. Mother No problems noted. Social History Household Members: Spouse and Children Housing: House Do you presently have visiting nurse or other home services: No Patient Tobacco Use Status: Never used Tobacco e-Cigarette/Vaping Use: Never Used service: No Current occupational status: retired Review of Systems Const All systems reviewed & are unremarkable except as noted in HPI and below Reports no additional complaints Eyes Reports no additional complaints ENT Reports no additional complaints Card Reports no additional complaints Resp Reports no additional complaints GI Reports no additional complaints Reports as per HPI Musc Reports no additional complaints Skin/Breast Reports system reviewed and no additional complaints, except as documented Neuro Reports no additional complaints Psych Reports no additional complaints Endo Reports no additional complaints Kevin/Lymph Reports no additional complaints Aller/Immun Reports no additional complaints Physical Exam Const General: healthy appearing, no acute distress and well developed Orientation/consciousness: patient oriented x3 HEENT Head: Yes normocephalic and Yes atraumatic Eyes Conjunctivae: conjunctivae normal Neck Neck: Yes normal visual inspection Chest Chest palpation & inspection: normal inspection of the chest Resp Effort & Inspection: normal respiratory effort Cardio Rate: regular rate GI Inspection: Yes normal to inspection Palpation (GI): Soft to palpation Skin General skin exam: no rashes or lesions noted Neuro General: patient oriented x3 Extrem General: No pedal edema Psych Appearance: grossly normal Affect: normal affect Office Procedures Post Void Residual Post Residual Void Post Void Residual (PVR): 54 [id number] Void Residual by ultrasound Results AMB Urinalysis, Automated UA Leukoctes 0 Torey/uL Last Edit by JENNIFER Garrison on 05/26/24 14:24 UA Nitrite Negative Last Edit by JENNIFER Garrison on 05/26/24 14:24 UA Urobilinogen 0.2 mg/dL Last Edit by JENNIFER Garrison on 05/26/24 14:24 UA Protein 0 mg/dL Last Edit by Gisell Lee Ryan on 05/26/24 14:24 UA pH 5.5 Last Edit by EJNNIFER Garrison on 05/26/24 14:24 UA Blood 0 Joe/uL Last Edit by JENNIFER Garrison on 05/26/24 14:24 UA Specific [place] 1.020 Last Edit by JENNIFER Garrison on 05/26/24 14:24 UA Ketone Negative Last Edit by JENNIFER Garrison on 05/26/24 14:24 UA Bilirubin 0 mg/dL Last Edit by JENNIFER Garrison on 05/26/24 14:24 UA Glucose 0 mg/dL Last Edit by JENNIFER Garrison on 05/26/24 14:24 Results Reviewed Results Reviewed: Laboratory Last Values Urine pH (Auto) 5.5 05/26/24 14:22 Specific [place] (Auto) 1.020 05/26/24 14:22 Urine Protein (Auto) 0 mg/dL 05/26/24 14:22 Glucose (UA)(Auto) 0 mg/dL 05/26/24 14:22 Urine Ketones (Auto) Negative 05/26/24 14:22 Urine Blood (Auto) 0 Joe/uL 05/26/24 14:22 Urine Nitrite (Auto) Negative 05/26/24 14:22 Urine Bilirubin (Auto) 0 mg/dL 05/26/24 14:22 Urine Urobilinogen (Auto) 0.2 mg/dL 05/26/24 14:22 Leukocyte Esterase (Auto) 0 Torey/uL 05/26/24 14:22 Date of Service: 01/09/23 EXAMINATION: CT ABDOMEN AND PELVIS WITH CONTRAST CLINICAL INFORMATION: Right flank pain, UTI. COMPARISON: None available. TECHNIQUE: Multidetector volumetric images were obtained from the superior aspect of the liver through the pubic symphysis following administration 85 mL of Omnipaque 350 intravenous contrast. Sagittal and coronal reformatted images were obtained on the technologist's workstation. Oral contrast: No This CT examination was performed using dose optimization techniques as appropriate, variously including the following: *Automated exposure control *Adjustment of mA and/or kV according to patient size (this includes techniques or standardized protocols for targeted exams where dose is matched to indication/reason for exam; i.e. extremities or head) *Use of iterative reconstruction technique DLP: 532 mGy-cm FINDINGS: LUNG BASES: Mild bibasilar atelectasis/scarring. No pleural or pericardial effusions. LIVER, GALLBLADDER, AND BILIARY TREE: Unremarkable.. PANCREAS: Unremarkable. SPLEEN: Unremarkable. ADRENAL GLANDS: Unremarkable. KIDNEYS AND URETERS: The kidneys are normal in size, shape, and attenuation. No hydronephrosis, hydroureter, or calculi seen. No perinephric stranding. BLADDER: Mildly distended with diffuse mild mural thickening, but no focal or surrounding abnormality. GASTROINTESTINAL TRACT: The stomach, small bowel and appendix are unremarkable. The colon shows mild to severe diverticulosis or evidence aligned, most pronounced in the descending colon. There is mild inflammation surrounding a diverticulum in the mid one third of the descending colon without evidence for perforation or abscess formation. ABDOMINAL WALL: No significant hernia is appreciated. LYMPH NODES: No lymphadenopathy. VASCULAR: Mild to moderate atherosclerosis most pronounced in the infrarenal abdominal aorta without significant aneurysmal dilatation. PELVIC VISCERA: Moderate prostatomegaly with lobulation of the prostatic base indenting the inferior wall the urinary bladder. OSSEOUS STRUCTURES: Mild multilevel degenerative changes in the thoracolumbar spine without suspicious abnormality. IMPRESSION: 1. Mild acute diverticulitis in the mid one third of the descending colon without evidence for perforation or abscess formation. 2. No nephrolithiasis or hydroureteronephrosis. 3. Moderate prostatomegaly with lobulation of the prostatic base indenting the inferior wall the urinary bladder. Mild mural thickening in the urinary bladder is likely secondary to incomplete distention/chronic changes. Correlate with PSA level. Collected: 01/09/23 Status: COMP Req#: [id number] Received: 01/09/23 Source: [facility] Sp Desc: Urine hartley Subm Dr: Sana Mccann Ordered: Urine Culture Procedure Result Verified Urine Culture Final 01/11/23 Organism 1 Klebsiella oxytoca Quant > 100,000 cfu/mL Kleb oxyto M.I.C. RX --------- --- Ampicillin >=32 R Ceftriaxone <=0.25 S Gentamicin <=1 S Levofloxacin <=0.12 S Nitrofurantoin <=16 S Trimethoprim/Sulfamethoxazole <=20 S Collected: 01/09/23 Status: COMP Req#: [id number] Received: 01/09/23 Source: Blood Sp Desc: Venous Pulse Subm Dr: Sana Mccann Ordered: Blood Cult(2nd) Procedure Result Verified Blood Culture (Second) Final 01/15/23 Gram stain results: Gram-positive rods Gram stain results: Gram-negative rods 2 sets positive/2 sets drawn Gram stain results from blood cultures should be interpreted with caution. A number of factors, including the presence of antibiotics in the specimen and the effect of growth in enriched liquid culturing medium, may cause organisms to react differently with the staining reagents. These factors occasionally cause a Gram-negative organism to stain Gram-positive and vice versa. Results of the initial Gram stain from the culture broth must always be correlated with growth on agar. Organism 1 Pseudomonas aeruginosa Organism 2 Peewee donaldson Results of Blood Culture gram stain sent by a secure message and confirmed by YNES ARENAS on 01/11/23 at 1937 by JOSE M. Critical blood culture gram stain gram negative rods sent by a secure message and confirmed by Mick Ford on 01/12/23 at 0947 by JAYDEN. P aerugino M.I.C. RX --------- --- Cefepime 2 S Gentamicin <=1 S Levofloxacin 0.25 S Meropenem <=0.25 S Piperacillin/Tazobactam <=4 S Assessment & Plan Assessment & Plan (1) History of UTI: Code(s): Z87.440 - Personal history of urinary (tract) infections Category: Medical (2) BPH w urinary obs/LUTS: Code(s): N40.1 - Benign prostatic hyperplasia with lower urinary tract symptoms; N13.8 - Other obstructive and reflux uropathy Category: Medical (3) Bladder wall thickening: Code(s): N32.89 - Other specified disorders of bladder Category: Medical Plan 83 who was seen at [facility] 12/2022 for UTI. CTAP/w IV contrast noted mural thickening thickening of the bladder, and enlarged prostate, renal calculi or hydronephrosis. Urine and blood cultures were positive the patient was admitted for IV antibiotics. He states that since his discharge he has been doing well he states he is taking the tamsulosin daily. Urinalysis is limits bladder PVR - 54 mL. I have discussed follow-up office cystoscopy. Orders: Orders AMB Urinalysis Automated Today Z13.9 - Encounter for screening, unspecified AMB Post Void Residual by ultrasound Today N40.0 - Benign prostatic hyperplasia without lower urinary tract symptoms Medications: Changed From tamsulosin 0.4 mg PO DAILY@1630 To tamsulosin 0.4 mg PO DAILY 90 caps 1RF Patient Instructions: The patient had an opportunity to ask questions regarding treatment plan. The patient expressed understanding and agreement with the above treatment plan. The patient is aware they should contact our office by phone for worsening of their current condition or the appearance of new symptoms. Compliance is encouraged with any medications and followup testing that is ordered. It is a privilege to be allowed the opportunity to participate in the urologic care of your patient. If you have any questions or concerns regarding treatment for the above conditions please do not hesitate to contact me. The office telephone contact is [phone]. This note is constructed in part using voice recognition software. While every effort has been made to ensure accuracy naphthalene still operator errors may have been included. Yours sincerely, Latoya Estrada MD Coding Level of Care Code New Pt Level 4 (13798) Diagnoses History of UTI Z87.440 BPH w urinary obs/LUTS N40.1; N13.8 Bladder wall thickening N32.89 CPT Codes Post Residual Void - PVR CPT Code: 40264-Lqpv Void Residual by ultrasound ([id number])
== END 2024-05-26 14:41 | disposition home or self-care (01) ==
PROVIDERS: PCP Nurse Practitioner Primary Care; Visit Provider Urology
DX: Z87.440 Personal history of urinary (tract) infections (principal); N40.1 Benign prostatic hyperplasia with lower urinary tract symptoms; N13.8 Other obstructive and reflux uropathy; N32.89 Other specified disorders of bladder; Z13.9 Encounter for screening, unspecified
CPT/HCPCS: 99204

== ENCOUNTER → 2024-05-26 14:03 | Outpatient (BNVA) | payer MEDICAID, SELFPAY | PROVIDERS: PCP Nurse Practitioner Primary Care; Visit Provider Urology | DX: N40.1 Benign prostatic hyperplasia with lower urinary tract symptoms (principal); N13.8 Other obstructive and reflux uropathy; N32.89 Other specified disorders of bladder; Z87.440 Personal history of urinary (tract) infections | CPT/HCPCS: 51798; 81003; 99202 ==

== ENCOUNTER 2024-07-08 13:12 | Outpatient (AMB) | payer MEDICAID, SELFPAY ==
--- NOTE | 2024-07-08 13:26 | MHC.OFFVIS ---
Intake Visit Reasons: cysto Intake Note: Patient is present for Cystoscopy Urology Medication:TAMSULOSIN Antibiotic Allergy:NONE Blood Thinner:ASPIRIN Lot:[id number] Exp:08/22/27 Social Media Developer Required: No Social Media Developer Name: Milly [id number] Allergies No Known Allergies Allergy (Verified 07/08/24 13:27) Medication List - Last Reconciled 07/08/24 by Latoya Estrada MD aspirin (Adult Aspirin Regimen) 81 mg PO DAILY atorvastatin 80 mg PO BEDTIME diclofenac sodium 1% 2 grams topical QD-QID PRN finasteride (Proscar) 5 mg PO DAILY 90 days fluticasone propionate 50 mcg/actuation 2 sprays intranasal DAILY lisinopril 2.5 mg PO DAILY metoprolol succinate ER 50 mg PO DAILY omeprazole 20 mg PO DAILY tamsulosin 0.4 mg PO DAILY HPI Comments Details: 07/08/24--Here for cystoscopy. Cystoscopy findings: prostatic urethra trilobar enlargement, bulbous urethra within normal limits, no suspicious bladder lesions visualized. Will continue tamsulosin, new script for Proscar 5 mg daily. Review of chart: 05/26/24--Evan is an 83 who was seen at [facility] 12/2022 for UTI. CTAP/w IV contrast noted mural thickening thickening of the bladder, and enlarged prostate, renal calculi or hydronephrosis. Urine and blood cultures were positive the patient was admitted for IV antibiotics. He was advised to follow-up with Urology, he states that he just got insurance. The patient is here with his son who interprets for him. He states that since his discharge he has been doing well he states he is taking the tamsulosin daily. Urinalysis is limits bladder PVR - 54 mL. I have discussed follow-up office cystoscopy. [facility] Medical History Atherosclerotic cardiovascular disease Sleep apnea Urinary retention Hypercholesteremia Hypertension Surgical History History of coronary artery bypass graft (~2006) Family History Father No problems noted. Mother No problems noted. Social History Household Members: Spouse and Children Housing: House Do you presently have visiting nurse or other home services: No Patient Tobacco Use Status: Never used Tobacco e-Cigarette/Vaping Use: Never Used service: No Current occupational status: retired Review of Systems Const All systems reviewed & are unremarkable except as noted in HPI and below Reports no additional complaints Eyes Reports no additional complaints ENT Reports no additional complaints Card Reports no additional complaints Resp Reports no additional complaints GI Reports no additional complaints Reports as per HPI Musc Reports no additional complaints Skin/Breast Reports system reviewed and no additional complaints, except as documented Neuro Reports no additional complaints Psych Reports no additional complaints Endo Reports no additional complaints Kevin/Lymph Reports no additional complaints Aller/Immun Reports no additional complaints Office Procedures Cystoscopy Consent Discussed risk and benefit or proposed procedure with the patient. Information consent for procedure given to the patient. Discussed technical aspects, risks, benefits and alternatives in full. Addressed all of the patient's questions and concerns regarding the procedure. The patient demonstrated knowledge and understanding. They wish to proceed with this procedure. Preparation The patient was prepped in the usual manner. A burrer operator was present and in the room. Genitalia was prepped with betadine solution in a sterile manner. Lidocaine Jelly 2% was placed into the urethra and 16Fr flexible Olympus cystoscope was inserted into the meatus after adequate lubrication. Procedure Time out per protocol performed. Bladder Inspection Bladder Inspection: The bladder was inspected in its entirety with utilization retroflexion displaying: Tumor(s): no suspicious bladder lesions visualized Trabeculation: Moderate with cellule changes, and diverticuli Mucosal Erthema: NA Orifices: normal shape and position Urethra: normal Cystoscopy findings: prostatic urethra trilobar enlargement, bulbous urethra within normal limits, no suspicious bladder lesions visualized [id number] Procedure code (CPT) selection complete Office Meds lidocaine HCl 2 % mucosal jelly in applicator Performing Provider: Latoya Estrada MD [facility] Document[facility] (not given) by: Latoya Estrada MD on 07/08/24 13:56 Dose Route Admin Location Dispensed Lot Number Expiration Date [facility] Trade [employer] Official 10 mL intra-urethral mL naproxen 500 mg tablet Performing Provider: Latoya Estrada MD Performing Location: [facility] Documented (not given) by: Latoya Estrada MD on 07/08/24 13:56 Dose Route Admin Location Dispensed Lot Number Expiration Date [employer] Official 500 mg PO tab ciprofloxacin HCl 500 mg tablet Performing Provider: Latoya Estrada MD Performing Location: [facility] Documented (not given) by: Latoya Estrada MD on 07/08/24 13:56 Dose Route Admin Location Dispensed Lot Number Expiration Date [employer] Official 500 mg PO tab Results AMB Urinalysis, Automated UA Leukoctes 0 Torey/uL Last Edit by ANTONIA Carmona on 07/08/24 13:34 UA Nitrite Negative Last Edit by Robe Chaney CCM on 07/08/24 13:34 UA Urobilinogen 0.2 mg/dL Last Edit by Robe Chaney [facility] on 07/08/24 13:34 UA Protein 0 mg/dL Last Edit by Robe Chaney [facility] on 07/08/24 13:34 UA pH 6.0 Last Edit by Robe Chaney [facility] on 07/08/24 13:34 UA Blood 0 Joe/uL [facility] 07/08/24 13:34 UA Specific [place] 1.025 Last Edit by Robe Chaney CCM on 07/08/24 13:34 UA Ketone Negative Last Edit by Robe Chaney [facility] on 07/08/24 13:34 UA Bilirubin 0 mg/dL Last Edit by Robe Chaney [facility] on 07/08/24 13:34 UA Glucose 0 mg/dL Last Edit by Robe Chaney [facility] on 07/08/24 13:34 Results Reviewed Results Reviewed: Laboratory Last Values Urine pH (Auto) 6.0 07/08/24 13:33 Specific [place] (Auto) 1.025 07/08/24 13:33 Urine Protein (Auto) 0 mg/dL 07/08/24 13:33 Glucose (UA)(Auto) 0 mg/dL 07/08/24 13:33 Urine Ketones (Auto) Negative 09/20/24 13:33 Urine Blood (Auto) 0 Joe/uL 07/08/24 13:33 Urine Nitrite (Auto) Negative 07/08/24 13:33 Urine Bilirubin (Auto) 0 mg/dL 07/08/24 13:33 Urine Urobilinogen (Auto) 0.2 mg/dL 07/08/24 13:33 Leukocyte Esterase (Auto) 0 Torey/uL 07/08/24 13:33 Assessment & Plan Assessment & Plan (1) BPH w urinary obs/LUTS: Code(s): N40.1 - Benign prostatic hyperplasia with lower urinary tract symptoms; N13.8 - Other obstructive and reflux uropathy Category: Medical (2) Bladder wall thickening: Code(s): N32.89 - Other specified disorders of bladder Category: Medical (3) Hematuria: Code(s): R31.9 - Hematuria, unspecified Category: Medical Plan Continue tamsulosin. Start Proscar 5 mg daily. Orders: Orders AMB Urinalysis Automated 07/08/24 Z13.9 - Encounter for screening, unspecified AMB Cystoscopy 07/08/24 N32.89 - Other specified disorders of bladder, R31.9 - Hematuria, unspecified, Z87.440 - Personal history of urinary (tract) infections Medications: New lidocaine HCl 2% 10 mL intra-urethral ONCE 10 mL 0RF N32.89 - Other specified disorders of bladder, R31.9 - Hematuria, unspecified, Z87.440 - Personal history of urinary (tract) infections naproxen 500 mg PO ONCE 1 tab 0RF N32.89 - Other specified disorders of bladder, R31.9 - Hematuria, unspecified, Z87.440 - Personal history of urinary (tract) infections ciprofloxacin HCl 500 mg PO ONCE 1 tab 0RF N32.89 - Other specified disorders of bladder, R31.9 - Hematuria, unspecified, Z87.440 - Personal history of urinary (tract) infections finasteride (Proscar) 5 mg PO DAILY 90 days 90 tabs 3RF enlarged prostate Patient Instructions: The patient had an opportunity to ask questions regarding treatment plan. The patient expressed understanding and agreement with the above treatment plan. The patient is aware they should contact our office by phone for worsening of their current condition or the appearance of new symptoms. Compliance is encouraged with any medications and followup testing that is ordered. It is a privilege to be allowed the opportunity to participate in the urologic care of your patient. If you have any questions or concerns regarding treatment for the above conditions please do not hesitate to contact me. The office telephone contact is [phone]. This note is constructed in part using voice recognition software. While every effort has been made to ensure accuracy heavy equipment engine mechanic errors may have been included. Yours sincerely, Latoya Estrada MD Coding Level of Care Code Est Pt Level 4 (27604) Diagnoses BPH w urinary obs/LUTS N40.1; N13.8 Bladder wall thickening N32.89 Hematuria R31.9 CPT Codes Cystoscopy - CPT: 07283-[id number] ([id number])
== END 2024-07-08 14:10 | disposition home or self-care (01) ==
PROVIDERS: PCP Nurse Practitioner Primary Care; Visit Provider Urology
DX: N40.1 Benign prostatic hyperplasia with lower urinary tract symptoms (principal); N13.8 Other obstructive and reflux uropathy; N32.89 Other specified disorders of bladder; R31.9 Hematuria, unspecified
CPT/HCPCS: 52000; 99214

== ENCOUNTER → 2024-07-08 13:12 | Outpatient (BNVA) | payer MEDICAID, SELFPAY | PROVIDERS: PCP Nurse Practitioner Primary Care; Visit Provider Urology | DX: N40.1 Benign prostatic hyperplasia with lower urinary tract symptoms (principal); N13.8 Other obstructive and reflux uropathy; N32.89 Other specified disorders of bladder; R31.9 Hematuria, unspecified; Z87.440 Personal history of urinary (tract) infections | CPT/HCPCS: 52000; 81003; 99212 ==

== ENCOUNTER 2024-08-24 10:01 | Outpatient (REF) | payer MEDICAID, SELFPAY ==
--- NOTE | ~2024-08-24 | XR_ITS ---
EXAMINATION: XR KNEE LEFT CLINICAL INFORMATION: Pain in left knee M25.562. COMPARISON: None available TECHNIQUE: Two views of the left knee. FINDINGS: Moderate patellofemoral degenerative changes. Loose body in the posterior joint space. No knee joint effusion. XR/XR knee LT 3V IMPRESSION: Moderate patellofemoral degenerative changes. Electronically signed by: Ben Page MD 09/29/2024 10:18 AM [facility]
--- NOTE | ~2024-08-24 | XR_ITS ---
EXAMINATION: XR KNEE RIGHT 1 VIEW CLINICAL INFORMATION: Pain in right knee M25.561. COMPARISON: XR Right knee 01/22/2022 TECHNIQUE: One view of the right knee. FINDINGS: Moderate joint space narrowing of the right medial compartment. Moderate joint space narrowing of the left medial and lateral compartments. Vascular calcifications in the distal thighs. XR/XR knee RT 1V IMPRESSION: Moderate degenerative changes of the bilateral knees. Electronically signed by: Ben Page MD 09/29/2024 10:16 AM [facility]
== END 2024-08-24 10:02 | disposition home or self-care (01) ==
LOC: HO.HOSX 10:01
PROVIDERS: Visit Provider Physician Assistant
DX: M25.562 Pain in left knee (principal); M25.561 Pain in right knee; M17.0 Bilateral primary osteoarthritis of knee
CPT/HCPCS: 20610; 73560; 73562; 99212; J1010; J2003

== ENCOUNTER 2024-08-24 11:26 | Outpatient (AMB) | payer MEDICAID, SELFPAY ==
--- NOTE | 2024-08-24 11:57 | A.OFFVIS_ITS ---
Vital Signs 08/24/24 12:01 Height 5 ft 8 in Weight 180 lb BMI 27.4 Intake Visit Reasons: Newprob-Manning cyst of left knee Intake Note: Evan an 83 year old male who presents today for an evaluation of left knee. Patient reports he is having pain in both knees. No hx of injury. He states that his pain is worse in the right knee and the left. He has ongoing pain for many years with no previous treatment. Patient has tired and failed 3 + months lidocaine topical cream, Tylenol and Ibuprofen. 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 Services: Data Warehousing Specialist Present (Ashish ([id number])) Allergies No Known Allergies Allergy (Verified 08/24/24 11:59) Medication List - Last Reconciled 08/24/24 by Abena Camacho PA-C aspirin (Adult Aspirin Regimen) 81 mg PO DAILY atorvastatin 80 mg PO BEDTIME diclofenac sodium 1% 2 grams topical QD-QID PRN finasteride (Proscar) 5 mg PO DAILY 90 days fluticasone propionate 50 mcg/actuation 2 sprays intranasal DAILY lisinopril 2.5 mg PO DAILY metoprolol succinate ER 50 mg PO DAILY omeprazole 20 mg PO DAILY tamsulosin 0.4 mg PO DAILY HPI HPI Newprob-Manning cyst of left knee: Details: 83-year-old male who presents to the office today for an evaluation of left knee. He states he has constant pain in his bilateral knees that is worse on the right knee. His pain is aggravated with stairs and prolonged ambulation. He has tried 3+ months of lidocaine topical cream, Tylenol, and ibuprofen with no relief. He has not had any treatment in the past. He does not have a history of diabetes. [facility] Medical History Atherosclerotic cardiovascular disease Sleep apnea Urinary retention Hypercholesteremia Hypertension Surgical History History of coronary artery bypass graft (~2006) Family History Father No problems noted. Mother No problems noted. Social History Household Members: Spouse and Children Housing: House Do you presently have visiting nurse or other home services: No Patient Tobacco Use Status: Never used Tobacco e-Cigarette/Vaping Use: Never Used service: No Current occupational status: retired Review of Systems Const All systems reviewed & are unremarkable except as noted in HPI and below Physical Exam Vital Signs: BMI result Body Mass Index 27.4 Extrem Other: Bilateral knee: Skin intact, no erythema or joint effusion. Tenderness along the medial and lateral joint line. Full ROM with crepitus. Negative Kristian?s. No ligamentous laxity. NVI. Office Procedures AMB Joint Injection/Aspiration Joint Injection/Aspiration Primary Site: right knee Secondary Site: left knee Prep: site was prepped using aseptic technique, ethochloride spray was applied and injection warnings given Injected: 40 mg of, DepoMedrol, with 8 mL of, 1% plain lidocaine and in the joint Approach Used: anterolateral Procedure: The patient tolerated the procedure well and there was some relief with the local anesthesia Coding 91348 - Glenohumeral/Tronchanteric Bursa/Intraarticular Procedure code (CPT) selection complete Results Reviewed Results Reviewed: Xrays were obtained in the office today and personally reviewed by me of the le knee show moderate oa Assessment & Plan Assessment & Plan (1) Osteoarthritis of knees, bilateral: Code(s): M17.0 - Bilateral primary osteoarthritis of knee Category: Medical Plan We discussed options today, which include steroid injection. The patient did consent to move forward with the bilat knee injection, which was tolerated well. I recommended rest, ice, and elevation and OTC anti-inflammatories as needed for discomfort. If symptoms persist or worsens, patient will contact the office, otherwise follow-up as needed. Orders: Orders XR knee LT 3V Today M25.562 - Pain in left knee XR knee RT 1V Today M25.561 - Pain in right knee Patient Instructions: Scribed for Abena Camacho PA-C, by Bola Wharton rn medical surgical, on 08/24/2024 at 11:45 AM EST.? I, Abena Camacho PA-C, have personally reviewed and agree with the information entered by the scribe. Coding Level of Care Code Est Pt Level 3 (25594) Complex EM visit Add On G2211 Diagnoses Osteoarthritis of knees, bilateral M17.0 CPT Codes Coding - Joint 7: 62789 - Glenohumeral/Tronchanteric Bursa/Intraarticular ([id number])
[2024-08-24 12:01] VITALS: BMI 27.4
== END 2024-08-24 12:21 | disposition home or self-care (01) ==
LOC: HO.HOS 11:27
PROVIDERS: PCP Nurse Practitioner Primary Care; Visit Provider Physician Assistant
DX: M17.0 Bilateral primary osteoarthritis of knee (principal)
CPT/HCPCS: 20610; 99213

== ENCOUNTER 2024-08-25 11:13 | Outpatient (REF) | payer MEDICAID, SELFPAY ==
[2024-08-25 13:20] LABS: MANUAL DIFF FLAG NO
[2024-08-25 13:31] LABS: B Type Natriuretic Peptide 108 pg/mL (<100)
[2024-08-25 13:34] LABS: Basophils Absolute Auto 0.1 X10*3/uL (0.0-0.2); Basophils Percent Auto 0.3 % (0-2); Hematocrit 42.8 % (42.0-52.0); Hemoglobin 13.7 g/dl (14.0-18.0); Imm Gran Abs Auto 0.13 X10*3/uL (0.00-0.03); Imm Gran Pct Auto 0.6 % (0.0-0.4); Lymphocytes Absolute Auto 1.4 X10*3/uL (1.2-4.9); Lymphocytes Percent Auto 6.2 % (20-40); Mean Corpuscular Hemoglobin 28.8 pg (27.0-33.0); Mean Corpuscular Volume 89.9 fL (80.0-98.0); Mean Platelet Volume 11.6 fL (9.4-12.4); Monocytes Absolute Auto 1.2 X10*3/uL (0.1-1.2); Monocytes Percent Auto 5.2 % (2-11); Neutrophils Absolute Auto 19.5 x10*3/uL (2.0-8.3); Neutrophils Percent Auto 87.7 % (45-73); Platelet Count 205 X10*3/uL (160-400); Red Blood Count 4.76 X10*6/uL (4.60-5.80); Red Cell Distribution Width 14.1 % (11.0-16.0); White Blood Count 22.2 X10*3/uL (4.8-10.8)
[2024-08-25 13:49] LABS: Alanine Aminotransferase 14 U/L (0-40); Albumin Level 3.9 g/dL (3.5-5.0); Alkaline Phosphatase 69 U/L (39-117); Anion Gap 13 (12-20); Aspartate Amino Transferase 21 U/L (5-37); Bilirubin Direct 0.2 mg/dL (0.0-0.5); Bilirubin Total 0.5 mg/dL (0.0-1.0); Blood Urea Nitrogen 21 mg/dL (9-16); Carbon Dioxide 24 mmol/L (22-29); Chloride 108 mmol/L (96-108); Cholesterol 182 mg/dL (<200); Estimated Glomerular Filt Rate > 60; Glucose Random 116 mg/dL (60-115); HDL Cholesterol 51 mg/dL (>40); LDL Cholesterol Calculated 113 mg/dL (<100); Potassium 4.4 mmol/L (3.3-5.1); Sodium 141 mmol/L (135-145); Total Protein 7.1 g/dL (6.5-8.0); Triglycerides 91 mg/dL (<150)
[2024-08-25 14:03] LABS: Estimated Average Glucose 117 mg/dL; Hemoglobin A1C 139.6142 umol/L; Hemoglobin A1c % 5.7 % (<6.0); Total Hemoglobin (HGBA1C) 3636.6125 umol/L
== END 2024-08-25 11:14 | disposition home or self-care (01) ==
LOC: HO.HHCL 11:13
PROVIDERS: Nurse Practitioner Primary Care; Visit Provider Nurse Practitioner
DX: M79.89 Other specified soft tissue disorders (principal); R42 Dizziness and giddiness; I25.10 Atherosclerotic heart disease of native coronary artery without angina pectoris; I25.2 Old myocardial infarction; G58.9 Mononeuropathy, unspecified
CPT/HCPCS: 36415; 80048; 80061; 80076; 83036; 83880; 85025

== ENCOUNTER 2024-09-27 10:59 | Outpatient (AMB) | payer MEDICAID, SELFPAY ==
--- NOTE | 2024-09-27 11:02 | A.OFFVIS_ITS ---
Vital Signs 09/27/24 11:12 Height 5 ft 8 in Weight 180 lb BMI 27.4 Intake Visit Reasons: [facility] referral for LE swelling/redness/burning (PVD) Intake Note: PCP referral for LE swelling, redness, burning in bilateral LE. Was wearing compression and did help. States swelling isnt so bad right now. 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 Complaints include swelling of lower extremities, particularly his feet to the ankles and discoloration of the feet/ankles. It has been affecting both feet equally. He continues to walk daily. He has never smoked and is not a diabetic. His PCP ordered a ultrasound with Doppler lower extremity which revealed no DVT, on 04/13/2024. Patient denies any previous venous surgery or injections. Patient denies any history of DVT/ PE. Patient denies any history of phlebitis. Trial of compression includes - compression stockings, which he states helped, not currently wearing. They now present for vascular evaluation regarding their varicose veins. [facility] Medical History Atherosclerotic cardiovascular disease Sleep apnea Urinary retention Hypercholesteremia Hypertension Surgical History History of coronary artery bypass graft (~2006) Family History Father No problems noted. Mother No problems noted. Social History Household Members: Spouse and Children Housing: House Do you presently have visiting nurse or other home services: No Patient Tobacco Use Status: Never used Tobacco e-Cigarette/Vaping Use: Never Used service: No Current occupational status: retired Review of Systems Const Reports as per HPI and Denies weakness ENT Reports Normal hearing present and Denies dizziness Card Reports as per HPI, Denies chest pain, Denies chest pain at rest, Denies chest pain with activity, Denies dyspnea and Denies dyspnea on exertion Resp Reports as per HPI, Denies cough, Denies dyspnea and Denies dyspnea on exertion GI Reports as per HPI, Denies abdominal pain, Denies nausea and Denies vomiting Musc Denies numbness Skin/Breast Reports as per HPI, Denies erythema and Denies wounds Neuro Reports Normal hearing present, Denies dizziness, Denies numbness, Denies Sensory deficit (Neuro) and Denies weakness Psych Reports no additional complaints Endo Reports no additional complaints Physical Exam Vital Signs: BMI result Body Mass Index 27.4 Const General: healthy appearing and no acute distress Orientation/consciousness: patient oriented x3 HEENT Head: Yes normal to inspection Ears: hearing grossly normal bilaterally Mouth: Normal oral and palatal mucosa present Resp Effort & Inspection: normal respiratory effort and able to speak in complete sentences Auscultation: clear to auscultation bilaterally Cardio Jugular venous distension: no JVD Rate: regular rate Rhythm: regular rhythm Heart sounds: S1 normal heart sound present and S2 normal heart sound present Bruits: no abdominal aortic bruits, no carotid bruits, no femoral bruits and no renal bruits Peripheral pulses: Peripheral pulses 2+ throughout GI Inspection: Yes normal to inspection Palpation (GI): No Abdominal aortic bruit present Skin General skin exam: no rashes or lesions noted Wounds: no wounds Hair: normal Neuro General: patient oriented x3 Cranial nerves: Yes Normal hearing present Cognition (Neuro): normal cognition Gait exam (Neuro): Normal gait present Motor exam (neuro): 5/5 motor strength present throughout Sensory Exam: No Sensory deficit (Neuro) Extrem Other: Bilateral lower extremities: +1 peripheral edema noted from the ankles to the tips of the toes. Palpable DP pulses. Slight erythematous discoloration noted from just above the ankles to the mid-feet. CEAP: C - 4 E - primary A - superficial P - reflux General: Yes normal to inspection, Yes full ROM, Yes capillary refill normal and Yes normal gait Assessment & Plan Assessment & Plan (1) Varicose veins of both lower extremities with inflammation: Code(s): I83.11 - Varicose veins of right lower extremity with inflammation; I83.12 - Varicose veins of left lower extremity with inflammation Category: Medical Plan: Evan is presenting today with his son and a referral from his PCP for ongoing bilateral lower extremity swelling and discoloration, that has been going on for approximately 6 months. He has been using compression stockings, which he states have been helping. In short, the patient has evidence of venous insufficiency. I have discussed the pathophysiology with the patient. In addition I have provided informational material regarding venous disease to the patient. We have discussed conservative measures including compression, elevation, and exercise. We discussed the continued use of the compression stockings. I have taken the liberty of ordering venous insufficiency testing with the patient. They will follow up with me after testing. The patient had an opportunity to ask questions regarding the treatment plan. All questions were answered. Imaging studies, laboratory studies and physical exam results were discussed and reviewed in detail. No major barriers to understanding were identified. The patient expressed understanding and agreement with the above treatment plan. The patient is aware they should contact our office by phone for worsening of the current condition or the appearance of new symptoms. Thank you for allowing me to participate in the vascular care of this patient. If you have any questions or concerns regarding the treatment for the above condition please do not hesitate to contact me. The office telephone contact is [phone]. This note is constructed using voice recognition software. While every effort has been made to ensure accuracy, mechanist errors may have been included. Thank you for allowing me to participate in the care of your patient. Yours sincerely, CRISTAL Vigil Orders: Orders US venous duplex LE BI 1 Week I83.11 - Varicose veins of right lower extremity with inflammation, I83.12 - Varicose veins of left lower extremity with inflammation Coding Level of Care Code New Pt Level 4 (73414) Diagnoses Varicose veins of both lower extremities with inflammation I83.11; I83.12
[2024-09-27 11:12] VITALS: BMI 27.4
== END 2024-09-27 11:53 | disposition home or self-care (01) ==
PROVIDERS: PCP Nurse Practitioner Primary Care; Visit Provider Physician Assistant Surgical
DX: I83.11 Varicose veins of right lower extremity with inflammation (principal); I83.12 Varicose veins of left lower extremity with inflammation
CPT/HCPCS: 99204

== ENCOUNTER → 2024-09-27 10:59 | Outpatient (BNVA) | payer MEDICAID, SELFPAY | PROVIDERS: PCP Nurse Practitioner Primary Care; Visit Provider Physician Assistant Surgical | DX: I83.11 Varicose veins of right lower extremity with inflammation (principal); I83.12 Varicose veins of left lower extremity with inflammation | CPT/HCPCS: 99212 ==

== ENCOUNTER 2024-10-25 12:42 | Outpatient (REF) | payer MEDICAID, SELFPAY ==
--- NOTE | ~2024-10-25 | US_ITS ---
EXAMINATION: US LOWER EXTREMITY VENOUS (REFLUX EXAM), BILATERAL CLINICAL INFORMATION: Varices in the right lower extremity with inflammation. COMPARISON: No priors. Correlated to venous Doppler ultrasound dated April 13, 2024. TECHNIQUE: Color flow triplex imaging and compression Doppler was performed to evaluate both the deep and the superficial systems bilaterally. To evaluate the superficial system, the examination was performed in the upright position. Color-flow Doppler ultrasound and compression ultrasound were utilized. In addition, maneuvers were utilized to demonstrate reflux. FINDINGS: 1. DEEP VENOUS ULTRASOUND OF THE RIGHT LOWER EXTREMITY: Common Femoral Vein: Compressible, normal respiratory variation and augmented flow. Femoral Vein: Compressible, normal color flow and augmentation. Popliteal Vein: Compressible, normal augmentation. Deep Reflux: There is no evidence of reflux in the deep system in either the common femoral vein, superficial femoral or the popliteal vein. There is a 5 cm lobulated anechoic abnormality in the right popliteal fossa without flow on color Doppler interrogation. 2. SUPERFICIAL ULTRASOUND WITH DOPPLER OF RIGHT LOWER EXTREMITY: GREAT SAPHENOUS VEIN: Saphenofemoral Junction: 0.6 cm; Reflux: 0 ms Proximal Thigh: Absent. Mid Thigh: Absent. Distal Thigh: 0.1 cm; Reflux: 0 ms At Knee: 0.1 cm; Reflux: 3052 ms Proximal Calf: 0.1 cm; Reflux: 0 ms Mid Calf: 0.1 cm; Reflux: 2196 ms Distal Calf: 0.1 cm; Reflux: 0 ms DUPLICATED MEDIAL GREAT SAPHENOUS VEIN: Diameter: None imaged Reflux: NA DUPLICATED LATERAL GREAT SAPHENOUS VEIN: Diameter: None imaged Reflux: NA SMALL SAPHENOUS VEIN: Saphenopopliteal Junction: 0.1 cm; Reflux: 0 ms Proximal: 0.2 cm; Reflux: 0 ms Distal: 0.1 cm; Reflux: 0 ms VEIN OF GIACOMINI: Size: NA Reflux: NA PERFORATORS: Location: None imaged Size: NA Reflux: NA VARICOSITIES: Location: None imaged. Size: NA Reflux: NA 3. DEEP VENOUS ULTRASOUND OF THE LEFT LOWER EXTREMITY: Common Femoral Vein: Compressible, normal respiratory variation and augmented flow. Femoral Vein: Compressible, normal color flow and augmentation. Popliteal Vein: Compressible, normal augmentation. Deep Reflux: There is no evidence of reflux in the deep system in either the common femoral vein, superficial femoral or the popliteal vein. There is no evidence of a Manning's cyst. Nonspecific prominent lymph nodes in the left inguinal region. 4. SUPERFICIAL ULTRASOUND WITH DOPPLER OF LEFT LOWER EXTREMITY: GREAT SAPHENOUS VEIN: Saphenofemoral Junction: 0.4 cm; Reflux: 0 ms Proximal Thigh: Absent. Mid Thigh: Absent. Distal Thigh: Absent. At Knee: Absent. Proximal Calf: Absent. Mid Calf: 0.1 cm; Reflux: 0 ms Distal Calf: 0.1 cm; Reflux: 0 ms DUPLICATED MEDIAL GREAT SAPHENOUS VEIN: Diameter: None imaged Reflux: NA DUPLICATED LATERAL GREAT SAPHENOUS VEIN: Diameter: None imaged. Reflux: NA SMALL SAPHENOUS VEIN: Saphenopopliteal Junction: 0.2 cm; Reflux: 0 ms Proximal: 0.2 cm; Reflux: 3196 ms Distal: 0.2 cm; Reflux: 0 ms VEIN OF GIACOMINI: Size: NA Reflux: NA PERFORATORS: Location: None imaged Size: NA Reflux: NA VARICOSITIES: Location: None Imaged Size: NA Reflux: NA US/US venous insuf bilat IMPRESSION: Right: Great saphenous vein venous insufficiency at and below the knee. 5 cm popliteal cyst. Left: Small saphenous vein insufficiency at the mid calf. Incidentally, Focal venous insufficiency/reflux at the left femoral vein. Electronically signed by: Eduin Núñez MD 10/31/2024 08:14 AM [facility]
== END 2024-10-25 12:43 | disposition home or self-care (01) ==
LOC: HO.US 12:42
PROVIDERS: PCP Nurse Practitioner Primary Care; Visit Provider Physician Assistant Surgical
DX: I83.11 Varicose veins of right lower extremity with inflammation (principal); I83.12 Varicose veins of left lower extremity with inflammation
CPT/HCPCS: 93970

== ENCOUNTER → 2024-10-25 12:43 | Outpatient (BNV) | payer MEDICAID, SELFPAY | PROVIDERS: PCP Nurse Practitioner Primary Care; Visit Provider Radiology Diagnostic Radiology | DX: I83.11 Varicose veins of right lower extremity with inflammation (principal) | CPT/HCPCS: 93970 ==

== ENCOUNTER 2024-11-07 13:17 | Outpatient (AMB) | payer MEDICAID, SELFPAY ==
--- NOTE | 2024-11-07 12:17 | MHC.OFFVIS ---
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 [employer] Marker Name: Manjeet Allergies No Known Allergies Allergy (Verified 11/07/24 13:47) Medication List - Last Reconciled 11/07/24 by Latoya Estrada MD aspirin (Adult Aspirin Regimen) 81 mg PO DAILY atorvastatin 80 mg PO BEDTIME diclofenac sodium 1% 2 grams topical QD-QID PRN finasteride (Proscar) 5 mg PO DAILY 90 days fluticasone propionate 50 mcg/actuation 2 sprays intranasal DAILY lisinopril 2.5 mg PO DAILY metoprolol succinate ER 50 mg PO DAILY omeprazole 20 mg PO DAILY tamsulosin 0.4 mg PO DAILY HPI Comments Details: 11/07/24-- Evan is an 84-year-old male who is here with his son for follow-up BPH. He was initially evaluated 05/26/2024 due to UTI and CT scan findings of mural thickening the bladder. He was last seen 07/08/2024 at which time cystoscopy was done resulting bladder wall thickening no suspicious bladder lesions and he was started on Proscar in addition to the tamsulosin. He states he is urinating without difficulty does get up at night 1-4 times. Denies dysuria. Urinalysis negative for blood or leukocytes. Follow-up in 6 months re-evaluate with ultrasound kidneys and PSA. 07/08/24--Here for cystoscopy. Cystoscopy findings: prostatic urethra trilobar enlargement, bulbous urethra within normal limits, no suspicious bladder lesions visualized. Will continue tamsulosin, new script for Proscar 5 mg daily. 05/26/24--Evan is an 83 who was seen at [facility] 12/2022 for UTI. CTAP/w IV contrast noted mural thickening thickening of the bladder, and enlarged prostate, renal calculi or hydronephrosis. Urine and blood cultures were positive the patient was admitted for IV antibiotics. He was advised to follow-up with Urology, he states that he just got insurance. The patient is here with his son who interprets for him. He states that since his discharge he has been doing well he states he is taking the tamsulosin daily. Urinalysis is limits bladder PVR - 54 mL. I have discussed follow-up office cystoscopy. [facility] Medical History Atherosclerotic cardiovascular disease Sleep apnea Urinary retention Hypercholesteremia Hypertension Surgical History History of coronary artery bypass graft (~2006) Family History Father No problems noted. Mother No problems noted. Social History Household Members: Spouse and Children Housing: House Do you presently have visiting nurse or other home services: No Patient Tobacco Use Status: Never used Tobacco e-Cigarette/Vaping Use: Never Used service: No Current occupational status: retired Review of Systems Const All systems reviewed & are unremarkable except as noted in HPI and below Reports no additional complaints Eyes Reports no additional complaints ENT Reports no additional complaints Card Reports no additional complaints Resp Reports no additional complaints GI Reports no additional complaints Reports as per HPI Musc Reports no additional complaints Skin/Breast Reports system reviewed and no additional complaints, except as documented Neuro Reports no additional complaints Psych Reports no additional complaints Endo Reports no additional complaints Kevin/Lymph Reports no additional complaints Aller/Immun Reports no additional complaints Results AMB Urinalysis, Automated UA Leukoctes 0 Torey/uL Last Edit by Concetta Cedenoidor on 11/07/24 13:51 UA Nitrite Negative Last Edit by Concetta Cedenoidor on 11/07/24 13:51 UA Urobilinogen 0.2 mg/dL Last Edit by Concetta Danay on 11/07/24 13:51 UA Protein 15 mg/dL Last Edit by Concetta Danay on 11/07/24 13:51 UA pH 6.0 Last Edit by Concetta Danay on 11/07/24 13:51 UA Blood 0 Joe/uL Last Edit by Concetta Danay on 11/07/24 13:51 UA Specific [place] 1.025 Last Edit by Concetta Danay on 11/07/24 13:51 UA Ketone Negative Last Edit by Concetta Cedenoidor on 11/07/24 13:51 UA Bilirubin 1 mg/dL Last Edit by Concetta Jon on 11/07/24 13:51 UA Glucose 0 mg/dL Last Edit by Concetta Jon on 11/07/24 13:51 Results Reviewed Results Reviewed: Laboratory Last Values Urine pH (Auto) 6.0 11/07/24 13:48 Specific [place] (Auto) 1.025 11/07/24 13:48 Urine Protein (Auto) 15 mg/dL 11/07/24 13:48 Glucose (UA)(Auto) 0 mg/dL 11/07/24 13:48 Urine Ketones (Auto) Negative 11/07/24 13:48 Urine Blood (Auto) 0 Joe/uL 11/07/24 13:48 Urine Nitrite (Auto) Negative 11/07/24 13:48 Urine Bilirubin (Auto) 1 mg/dL 11/07/24 13:48 Urine Urobilinogen (Auto) 0.2 mg/dL 11/07/24 13:48 Leukocyte Esterase (Auto) 0 Torey/uL 11/07/24 13:48 Date of Service: 01/09/23 EXAMINATION: CT ABDOMEN AND PELVIS WITH CONTRAST CLINICAL INFORMATION: Right flank pain, UTI. COMPARISON: None available. TECHNIQUE: Multidetector volumetric images were obtained from the superior aspect of the liver through the pubic symphysis following administration 85 mL of Omnipaque 350 intravenous contrast. Sagittal and coronal reformatted images were obtained on the technologist's workstation. Oral contrast: No This CT examination was performed using dose optimization techniques as appropriate, variously including the following: *Automated exposure control *Adjustment of mA and/or kV according to patient size (this includes techniques or standardized protocols for targeted exams where dose is matched to indication/reason for exam; i.e. extremities or head) *Use of iterative reconstruction technique DLP: 532 mGy-cm FINDINGS: LUNG BASES: Mild bibasilar atelectasis/scarring. No pleural or pericardial effusions. LIVER, GALLBLADDER, AND BILIARY TREE: Unremarkable.. PANCREAS: Unremarkable. SPLEEN: Unremarkable. ADRENAL GLANDS: Unremarkable. KIDNEYS AND URETERS: The kidneys are normal in size, shape, and attenuation. No hydronephrosis, hydroureter, or calculi seen. No perinephric stranding. BLADDER: Mildly distended with diffuse mild mural thickening, but no focal or surrounding abnormality. GASTROINTESTINAL TRACT: The stomach, small bowel and appendix are unremarkable. The colon shows mild to severe diverticulosis or evidence aligned, most pronounced in the descending colon. There is mild inflammation surrounding a diverticulum in the mid one third of the descending colon without evidence for perforation or abscess formation. ABDOMINAL WALL: No significant hernia is appreciated. LYMPH NODES: No lymphadenopathy. VASCULAR: Mild to moderate atherosclerosis most pronounced in the infrarenal abdominal aorta without significant aneurysmal dilatation. PELVIC VISCERA: Moderate prostatomegaly with lobulation of the prostatic base indenting the inferior wall the urinary bladder. OSSEOUS STRUCTURES: Mild multilevel degenerative changes in the thoracolumbar spine without suspicious abnormality. IMPRESSION: 1. Mild acute diverticulitis in the mid one third of the descending colon without evidence for perforation or abscess formation. 2. No nephrolithiasis or hydroureteronephrosis. 3. Moderate prostatomegaly with lobulation of the prostatic base indenting the inferior wall the urinary bladder. Mild mural thickening in the urinary bladder is likely secondary to incomplete distention/chronic changes. Correlate with PSA level. Collected: 01/09/23 Status: COMP Req#: [id number] Received: 01/09/23 Source: [facility] Sp Desc: Urine hartley Subm Dr: Sana Mccann Ordered: Urine Culture Procedure Result Verified Urine Culture Final 01/11/23 Organism 1 Klebsiella oxytoca Quant > 100,000 cfu/mL Kleb oxyto M.I.C. RX --------- --- Ampicillin >=32 R Ceftriaxone <=0.25 S Gentamicin <=1 S Levofloxacin <=0.12 S Nitrofurantoin <=16 S Trimethoprim/Sulfamethoxazole <=20 S Collected: 01/09/23 Status: COMP Req#: [id number] Received: 01/09/23 Source: Blood Sp Desc: Venous Pulse Subm Dr: Sana Mccann Ordered: Blood Cult(2nd) Procedure Result Verified Blood Culture (Second) Final 01/15/23 Gram stain results: Gram-positive rods Gram stain results: Gram-negative rods 2 sets positive/2 sets drawn Gram stain results from blood cultures should be interpreted with caution. A number of factors, including the presence of antibiotics in the specimen and the effect of growth in enriched liquid culturing medium, may cause organisms to react differently with the staining reagents. These factors occasionally cause a Gram-negative organism to stain Gram-positive and vice versa. Results of the initial Gram stain from the culture broth must always be correlated with growth on agar. Organism 1 Pseudomonas aeruginosa Organism 2 Peewee donaldson Results of Blood Culture gram stain sent by a secure message and confirmed by YNES ARENAS on 01/11/23 at 1937 by JOSE M. Critical blood culture gram stain gram negative rods sent by a secure message and confirmed by Mick Ford on 01/12/23 at 0947 by JAYEDN. P aerugino M.I.C. RX --------- --- Cefepime 2 S Gentamicin <=1 S Levofloxacin 0.25 S Meropenem <=0.25 S Piperacillin/Tazobactam <=4 S Assessment & Plan Assessment & Plan (1) BPH w urinary obs/LUTS: Code(s): N40.1 - Benign prostatic hyperplasia with lower urinary tract symptoms; N13.8 - Other obstructive and reflux uropathy Category: Medical (2) Bladder wall thickening: Code(s): N32.89 - Other specified disorders of bladder Category: Medical (3) Hematuria: Code(s): R31.9 - Hematuria, unspecified Category: Medical Plan Continue tamsulosin, Proscar 5 mg daily. Bladder and kidney ultrasound Orders: Orders AMB Urinalysis Automated Today Z13.9 - Encounter for screening, unspecified PSA,Total (Free>4and<10) 4 Months N13.8 - Other obstructive and reflux uropathy, N40.1 - Benign prostatic hyperplasia with lower urinary tract symptoms US retroperitoneal comp 4 Months N13.8 - Other obstructive and reflux uropathy, N32.89 - Other specified disorders of bladder, N40.1 - Benign prostatic hyperplasia with lower urinary tract symptoms Medications: Refilled finasteride (Proscar) 5 mg PO DAILY 90 days 90 tabs 3RF enlarged prostate tamsulosin 0.4 mg PO DAILY 90 caps 1RF Patient Instructions: The patient had an opportunity to ask questions regarding treatment plan. The patient expressed understanding and agreement with the above treatment plan. The patient is aware they should contact our office by phone for worsening of their current condition or the appearance of new symptoms. Compliance is encouraged with any medications and followup testing that is ordered. It is a privilege to be allowed the opportunity to participate in the urologic care of your patient. If you have any questions or concerns regarding treatment for the above conditions please do not hesitate to contact me. The office telephone contact is [phone]. This note is constructed in part using voice recognition software. While every effort has been made to ensure accuracy concrete smoother errors may have been included. Yours sincerely, Latoya Estrada MD Coding Level of Care Code Est Pt Level 4 (75107) Diagnoses BPH w urinary obs/LUTS N40.1; N13.8 Bladder wall thickening N32.89 Hematuria R31.9
== END 2024-11-07 14:17 | disposition home or self-care (01) ==
PROVIDERS: PCP Nurse Practitioner Primary Care; Visit Provider Urology
DX: N40.1 Benign prostatic hyperplasia with lower urinary tract symptoms (principal); N13.8 Other obstructive and reflux uropathy; N32.89 Other specified disorders of bladder; R31.9 Hematuria, unspecified; Z13.9 Encounter for screening, unspecified
CPT/HCPCS: 99214

== ENCOUNTER → 2024-11-07 13:17 | Outpatient (BNVA) | payer MEDICAID, SELFPAY | PROVIDERS: PCP Nurse Practitioner Primary Care; Visit Provider Urology | DX: N40.1 Benign prostatic hyperplasia with lower urinary tract symptoms (principal); N13.8 Other obstructive and reflux uropathy; N32.89 Other specified disorders of bladder; R31.9 Hematuria, unspecified | CPT/HCPCS: 81003; 99212 ==

== ENCOUNTER 2024-11-15 10:48 | Outpatient (AMB) | payer MEDICAID, SELFPAY ==
[2024-11-15 11:25] VITALS: BMI 27.4
--- NOTE | 2024-11-15 11:25 | A.OFFVIS_ITS ---
Vital Signs 11/15/24 11:25 Height 5 ft 8 in Weight 180 lb BMI 27.4 Intake Visit Reasons: follow up s/p 10/25/24 Intake Note: follow up 10/25/24 for bilateral LE swelling,redness and burning Accompanied by: Self / Same As Patient Allergies No Known Allergies Allergy (Verified 11/15/24 11:26) HPI HPI follow up s/p 10/25/24: Details: Very pleasant 84-year-old gentleman presents for follow-up regarding venous insufficiency. He has had some swelling and discoloration of his feet. He had been on going for several years. He is a nonsmoker nondiabetic. He now presents for follow-up with venous insufficiency testing. [facility] Medical History Atherosclerotic cardiovascular disease Sleep apnea Urinary retention Hypercholesteremia Hypertension Surgical History History of coronary artery bypass graft (~2006) Family History Father No problems noted. Mother No problems noted. Social History Household Members: Spouse and Children Housing: House Do you presently have visiting nurse or other home services: No Patient Tobacco Use Status: Never used Tobacco e-Cigarette/Vaping Use: Never Used service: No Current occupational status: retired Review of Systems Const All systems reviewed & are unremarkable except as noted in HPI and below Reports no additional complaints ENT Reports Normal hearing present Card Denies chest pain, Denies chest pain at rest, Denies chest pain with activity and Denies pedal edema Resp Denies cough GI Denies abdominal pain Musc Denies abnormal gait, Denies muscle cramps and Denies radiating pain into limb Skin/Breast Denies skin ulcer and Denies wounds Neuro Reports Normal hearing present and Denies abnormal gait Psych Reports no additional complaints Physical Exam Vital Signs: BMI result Body Mass Index 27.4 Const General: cooperative, healthy appearing and comfortable Orientation/consciousness: oriented to person, oriented to place and oriented to time HEENT Head: Yes normal to inspection Neck Neck: Yes normal visual inspection Carotids: no bruits Chest Chest palpation & inspection: normal inspection of the chest Resp Effort & Inspection: normal respiratory effort and able to speak in complete sentences Auscultation: clear to auscultation bilaterally, no crackles, no rales, no rhonchi and no wheezes Cardio Rate: regular rate Rhythm: regular rhythm Heart sounds: S1 normal heart sound present and S2 normal heart sound present Bruits: no carotid bruits Peripheral pulses: Peripheral pulses 2+ throughout GI Inspection: Yes normal to inspection Skin Wounds: no wounds Hair: normal Neuro General: oriented to person, oriented to place and oriented to time Cranial nerves: Yes CN's II-XII intact bilaterally and Yes Normal hearing present Cognition (Neuro): normal cognition Motor exam (neuro): 5/5 motor strength present throughout Extrem Other: venous exam: +1 edema General: No clubbing, No cyanosis and No edema Psych Appearance: grossly normal Mental Status: mental status grossly normal Speech and movement: Normal speech and movement present Results Reviewed Results Reviewed: Brief summary of venous insufficiency testing is as follows: right great saphenous vein: Focally positive but vein small in caliber right small saphenous vein: negative right accessory vein: none present left great saphenous vein: negative left small saphenous vein: negative left accessory vein: none present Please note there is no evidence of any venous aneurysms or significant tortuosity Assessment & Plan Assessment & Plan (1) Swelling of lower extremity: Code(s): M79.89 - Other specified soft tissue disorders Category: Medical Plan: In short patient is negative for any significant venous insufficiency we did discuss routine conservative measures including compression elevation and exercise. He will follow up with us on an as-needed basis. Thank you for al lowing us to assist in his care. Coding Level of Care Code Est Pt Level 4 (21274) Diagnoses Swelling of lower extremity M79.89
== END 2024-11-15 11:33 | disposition home or self-care (01) ==
PROVIDERS: PCP Nurse Practitioner Primary Care; Visit Provider Surgery Vascular Surgery
DX: M79.89 Other specified soft tissue disorders (principal)
CPT/HCPCS: 99214

== ENCOUNTER → 2024-11-15 10:48 | Outpatient (BNVA) | payer MEDICAID, SELFPAY | PROVIDERS: PCP Nurse Practitioner Primary Care; Visit Provider Surgery Vascular Surgery | DX: M79.89 Other specified soft tissue disorders (principal) | CPT/HCPCS: 99212 ==

== ENCOUNTER 2024-12-01 15:01 | Inpatient (IN) | payer MEDICAID, SELFPAY ==
--- NOTE | ~2024-12-01 | CT_ITS ---
CLINICAL HISTORY: bilateral lower abd pain flank pain CT ABDOMEN AND PELVIS WITH CONTRAST Comparison: CT/AR - CT ABDOMEN PELVIS W IV CON - 01/09/23 14:25 EDT Findings: Scattered atelectasis and/or scarring. No consolidation or pleural effusion. Median sternotomy changes. Bilateral perinephric stranding. No hydronephrosis or urolithiasis. No acute abnormalities in the remaining solid organs. No large calcified gallstone. Prominent aortic and arterial calcifications. No AAA. No lymphadenopathy. No bowel obstruction, pneumoperitoneum, or pneumatosis. No ascites. No significant mesenteric edema. Diffuse urinary bladder wall thickening with perivesical edema. The prostate is enlarged with AP x transverse dimensions of 4.0 x 6.2 cm. There is urinary bladder base invasion. Colonic diverticulosis. No acute diverticulitis. The appendix is identified. No acute appendicitis. Fat containing left inguinal hernia. No acute or destructive osseous lesion. IMPRESSION: 1. No acute obstructive uropathy or urolithiasis. Nonspecific bilateral perinephric stranding. 2. Prostatomegaly with urinary bladder invasion. Recommend urological consultation if not already performed. 3. Diffuse urinary bladder wall thickening with perivesical edema secondary to outlet obstruction and/or inflammatory/infectious cystitis. 4. No obstructive or acute inflammatory changes in the gastrointestinal tract. Extensive diverticulosis coli. This document has been electronically signed by: Ginna Wasserman DO on 12/01/2024 20:23:35
[2024-12-01 15:20] VITALS: BP 99/62; PULSE 74; O2SAT 98
[2024-12-01 15:29] VITALS: BP 109/52; PULSE 81; RESP 20; TEMP 36.8; O2SAT 98; BMI 26.4
--- OUTSIDE RECORDS SUMMARY | 2024-12-01 15:48 | XMS_ITS | Encounter Summary ---
Author Organization [employer] Address [address] [facility] 7t [place] [address] Care Team Providers Care Leave Specialist Name Role Phone Rashmi Finnegan Primary Care Provider [phone] Reason for Visit * Reason Comments Sick Onsite Fever, UTI symptoms; left eye is bloodshot red for the last 4 days Encounter Details Date Type Department Care Team ([facility] st Contact Info) Description 12/01/2024 2:30 PM EST Office Visit [facility] MEDICINE [address] [place], [place] [phone] Jareth Read MD [address] [place], [place] [phone] Acute cystitis with hematuria (Primary Dx); Hypotension, unspecified hypotension type; UTI symptoms Social History Tobacco Use Types Packs/Day Years Used Date Smoking Tobacco: Former Cigarettes Passive Smoke Exposure: Current Smokeless Tobacco: Never Tobacco Cessation:Counseling Given: Not Answered Alcohol Use Standard Drinks/Week Comments Never 0 (1 standard drink = 0.6 oz pur e alcohol) Depression Answer Date Recorded Patient Health Questionnaire-9 Score 0 08/24/2024 Patient Health Questionnaire-9 Score 0 08/24/2024 Last PHQ-9: Questionnaire Data Not on file 1 10/24/2023 Housing Stability Answer Date Recorded What is your housing situation today? I have hal morrissey 03/28/[address] you li ve. Do you have problems with any of the following? None of the above 03/28/2024 Food Insecurity Answer Date Recorded Within the past 12 months, y ou worried that your food would run out before you got money to buy more: Never True 03/28/2024 Within the past 12 months,th e food you bought just didn't last and you didn't have enough money to get more: Never True 07/2024 Transportation Answer Date Recorded In the past 12 months, has l ack of transportation kept you from medical appts, meetings, work or from getting things needed for daily living? No 03/28/2024 Utilities Answer Date Recorded In the past 12 months, has t he electric, gas, oil or water company threatened to shut off services in your home? No 03/28/2024 Depression Answer Date Recorded Patient Health Questionnaire-2 Score 0 08/24/2024 Internet Access Answer Date Recorded Internet Access Q1 Yes 11/10/2024 Internet Access Q2 Not on file 11/10/2024 Sex and Gender Information Value Date Recorded Sex Assigned at Male 08/18/2022 10:37 AM EDT Legal Sex Male 10:37 AM EDT Gender Identity Male 08/18/2022 10:37 AM EDT Sexual Orientation Choose not to disclose 2021 10:37 AM EDT documented as of this encounter Last Filed Vital Signs Vital Sign Reading Time Taken Comments Blood Pressure 84/40 12/01/2024 2:31 PM EST provider manual recheck Pulse 104 12/01/2024 2:09 PM EST Temperature 36 ??C (96.8 ??F) 12/01/2024 2:0 9 PM EST Respiratory Rate 20 12/01/2024 2:09 PM EST Oxygen Saturation 97% 12/01/2024 2:0 9 PM EST Inhaled Oxygen Concentration - - Weight 66.6 kg (146 lb 12.8 oz) 12/01/2024 2:09 PM EST Height 170.2 cm (5' 7 ) 12/01/2024 2:0 9 PM EST Body Mass Index 22.99 12/01/2024 2:09 PM EST documented in this encounter Progress Notes * Jareth Roe MD - 12/01/2024 2:30 PM EST SUBJECTIVE Evan Maya is a 84 y.o. male who presents for Sick Onsite (Fever, UTI symptoms; left eye is bloodshot red for the last 4 days). Difficulty Urinating This is a new problem. The current episode started in the past 7 days. The problem occurs every urination. The problem has been gradually worsening. The pain is at a severity of 6/10. The pain is moderate. The maximum temperature recorded prior to his arrival was 101 - 101.9 F. The fever has been present for 1 - 2 days. He is Not sexually active. There is A history of pyelonephritis. Associated symptoms include frequency, hesitancy, nausea and urgency. Pertinent negatives include no flank pain or vomiting. He has tried nothing for the symptoms. The treatment provided no relief. Review of Systems Gastrointestinal: Positive for nausea. Negative for vomiting. Genitourinary: Positive for dysuria, frequency, hesitancy and urgency. Negative for flank pain. No Known Allergies OBJECTIVE Vitals: 12/01/24 1409 12/01/24 1430 12/01/24 1431 BP: 87/52 (!) 90/36 (!) 84/40 BP Location: Left arm Left arm Left arm Patient Position: Sitting Sitting Sitting BP Cuff Size: Adult Adult Adult Pulse: 104 Resp: 20 Temp: 96.8 ??F (36 ??C) TempSrc: Temporal SpO2: 97% Weight: 146 lb 12.8 oz (66.6 kg) Height: 5' 7 (1.702 m) Physical Exam Vitals reviewed. Constitutional: Appearance: Normal appearance. HENT: Head: Normocephalic and atraumatic. Right Ear: External ear normal. Left Ear: External ear normal. Nose: Nose normal. Mouth/Throat: Mouth: Mucous membranes are moist. Eyes: Conjunctiva/sclera: Conjunctivae normal. Cardiovascular: Rate and Rhythm: Normal rate and regular rhythm. Pulmonary: Effort: Pulmonary effort is normal. Breath sounds: Normal breath sounds. Abdominal: General: Bowel sounds are normal. Tenderness: There is abdominal tenderness in the suprapubic area. There is no right CVA tenderness or left CVA tenderness. Skin: General: Skin is warm. Neurological: Mental Status: He is alert. Mental status is at baseline. Assessment/Plan Problem List Items Addressed This Visit Acute cystitis with hematuria - Primary 84 yr old male with Pmhx CAD, BPH presents with 3 days of dysuria and 1 day of fever, malaise, suprapubic abdominal pain. On exam he seems in mild discomfort, he is hypotensive ( despite the fact that he did not take any of his antihypertensive medications today ). U/A shows: large Leus and moderate Blood Etiology: Likely UTI complicated by early urosepsis Plan: Given Pmhx of CAD and BPH, I do not think outpatient Abd treatment is appropriate. Pt to be transported via ambulance to [facility] for IVF, IV Abx and likely CT of abdomen to rule out pyelonephritis Pt agreeable with plan Relevant Orders Culture, Urine, Routine Hypotension Likely due to urosepsis To be transported via ambulance to [facility] for IVF and IV Abx as well as potential admission overnight Case discussed with [facility] Other Visit Diagnoses UTI symptoms Relevant Orders POCT Urinalysis (Completed) Culture, Urine, Routine documented in this encounter Miscellaneous Notes * Assessment & Plan Note - Jareth Roe MD - 12/01/2024 2:37 PM EST Associated Problem(s): Hypotension Likely due to urosepsis To be transported via ambulance to [facility] for IVF and IV Abx as well as potential admission overnight Case discussed with [facility] * Assessment & Plan Note - Jareth Roe MD - 12/01/2024 2:36 PM EST Associated Problem(s): Acute cystitis with hematuria 84 yr old male with Pmhx CAD, BPH presents with 3 days of dysuria and 1 day of fever, malaise, suprapubic abdominal pain. On exam he seems in mild discomfort, he is hypotensive ( despite the fact that he did not take any of his antihypertensive medications today ). U/A shows: large Leus and moderate Blood Etiology: Likely UTI complicated by early urosepsis Plan: Given Pmhx of CAD and BPH, I do not think outpatient Abd treatment is appropriate. Pt to be transported via ambulance to [facility] for IVF, IV Abx and likely CT of abdomen to rule out pyelonephritis Pt agreeable with plan documented in this encounter Plan of Treatment Upcoming Encounters Date Type Department Care Team (Late st Contact Info) Description 01/12/2025 10:30 AM EDT Office Visit [facility] OPTOMETRY [address] [place] [address] Ghada Story, OD [address] [place] [address] Scheduled Orders Name Type Priority Associated Diagnoses Orde r Schedule Culture, Urine, Routine Microbiology Routine UTI symptoms Acute cystitis with hematuria Expected: 12/01/2024 (Approximate), Expires: 12/01/2025 documented as of this encounter Procedures Procedure Name Priority Date/Time Associated Diagnosis Comments POCT URINALYSIS DIPSTICK Routine 12/01/2024 2:27 PM EST UTI symptoms documented in this encounter Results * (ABNORMAL) POCT Urinalysis (12/01/2024 2:27 PM EST) Color, UA Yellow Clarity, UA Cloudy Glucose, UA Negative Bilirubin, UA Trace Comment:Small Ketones, UA Negative Spec Grav, UA 1.020 Blood, UA Positive(A) Negative, None Detected Comment:Moderate pH, UA 6.0 Protein, UA Trace Comment:30 mg/dL Urobilinogen, UA 0.2 Leukocytes, UA Trace Negative, Rare, Trace Comment:Large Nitrite, UA Negative Negative, None Detected Appearance, UA cloudy QC Media Lot # [id number] Lot# Expiration Date Urine 12/01/2024 2:27 PM EST us Jareth Roe MD POINT OF CARE TEST EN TER/EDIT ORDERABLES Final Result documented in this encounter Visit Diagnoses Diagnosis Acute cystitis with hematuria- Primary Hypotension, unspecified hypotension type UTI symptoms documented in this encounter Additional Health Concerns Assessment Noted Time PHQ-9 Depression Total Score: 0 08/24/20 24 3:14 PM EST documented as of this encounter Care Teams Leave Specialist Relationship Specialty Start Date End Date Rashmi Finnegan ANP [address] [place] [address] PCP - General Family Medicine 01/25/21 documented as of this encounter
--- OUTSIDE RECORDS SUMMARY | 2024-12-01 15:48 | XMS_ITS | Encounter Summary ---
Author Organization [employer] Address [address] [facility] 7t [place] [address] Care Team Providers Care Screw Driver Operator Name Role Phone Rashmi Finnegan Primary Care Provider [phone] Reason for Visit * Reason Comments Med Refill Encounter Details Date Type Department Care Team (Late st Contact Info) Description 10/22/2023 Refill [facility] MED & PEDS [address] [place], [place] [phone] Rashmi Finnegan ANP [address] [place] [address] Essential hypertension Social History Tobacco Use Types Packs/Day Years Used Date Smoking Tobacco: Never Smokeless Tobacco: Never Alcohol Use Standard Drinks/Week Comments Never 0 (1 standard drink = 0.6 oz pur e alcohol) Sex and Gender Information Value Date Recorded Sex Assigned at Male 08/18/2022 10:37 AM EDT Legal Sex Male 10:37 AM EDT Gender Identity Male 08/18/2022 10:37 AM EDT Sexual Orientation Choose not to disclose 2021 10:37 AM EDT documented as of this encounter Plan of Treatment Upcoming Encounters Date Type Department Care Team (Late st Contact Info) Description 01/12/2025 10:30 AM EDT Office Visit [facility] OPTOMETRY [address] [place], [place] [phone] TarGhada sylvester, OD [address] [place], [place] [phone] documented as of this encounter Visit Diagnoses Diagnosis Essential hypertension Unspecified essential hypertension documented in this encounter Care Teams Screw Driver Operator Relationship Specialty Start Date End Date Rashmi Finnegan ANP [address] [place] [address] PCP - General Family Medicine 01/25/21 documented as of this encounter
--- OUTSIDE RECORDS SUMMARY | 2024-12-01 15:48 | XMS_ITS | Encounter Summary ---
Author Organization [employer] [facility] Address [address] [facility] 7t [place] [address] Care Team Providers Care First Assist Name Role Phone Rashmi Finnegan Primary Care Provider [phone] Encounter Details Date Type Department Care Team (Latest Contact Info) Description 05/07/2022 Abstract [facility] Dental, Provider, DDS Social History Tobacco Use Types Packs/Day Years Used Date Smoking Tobacco: Never Assessed Sex and Gender Information Value Date Recorded [...] Description 01/12/2025 10:30 AM EDT Office Visit [facility] OPTOMETRY [address] [place] [address] Ghada Story, OD [address] [place] [address] documented as of this encounter Visit Diagnoses Not on filedocumented in this encounter Care Teams First Assist Relationship Specialty Start Date End Date Rashmi Finnegan ANP [address] [place] [id number] PCP - General Family Medicine 01/25/21 documented as of this encounter
--- OUTSIDE RECORDS SUMMARY | 2024-12-01 15:48 | XMS_ITS | Encounter Summary ---
Author Organization [employer] Address [address] [facility] [facility] [address] 7[address] [place] [address] Care Team Providers Care Fabricator Assembler Metal Products Name Role Phone Rashmi Finnegan LUCI Primary Care Provider [phone] Encounter Details Date Type Department Care Team (Latest Contact Info) Description 11/24/2024 Travel Social History Tobacco Use Types Packs/Day Years Used Date Smoking Tobacco: Never Passive Smoke Exposure: Never Smokeless Tobacco: Never Alcohol Use Standard [...] Description 01/12/2025 10:30 AM EDT Office Visit [facility] OPTOMETRY [address] [place] [address] Ghada Story, OD [address] [place] [address] documented as of this encounter Visit Diagnoses Not on filedocumented in this encounter Additional Health Concerns Assessment Noted Time PHQ-9 Depression Total Score: 0 08/24/20 24 3:14 PM EST documented as of this encounter Care Teams Fabricator Assembler Metal Products Relationship Specialty Start Date End Date Rashmi Finnegan ANP [address] [place] [id number] PCP - General Family Medicine 01/25/21 documented as of this encounter
--- OUTSIDE RECORDS SUMMARY | 2024-12-01 15:48 | XMS_ITS | Encounter Summary ---
Author Organization [employer] [facility] Address [address] [facility] 7t [place] [address] Care Team Providers Care Cafe Worker Name Role Phone Rashmi Finnegan Primary Care Provider [phone] Encounter Details Date Type Department Care Team (Late st Contact Info) Description 10/07/2022 Orders Only [facility] [address] [place] [address] Hina Mcguire LPN Social History Tobacco Use Types Packs/Day Years [...] Description 01/12/2025 10:30 AM EDT Office Visit [facility] OPTOMETRY [address] [place] [address] Ghada Story, OD [address] [place] [address] documented as of this encounter Visit Diagnoses Not on filedocumented in this encounter Care Teams Cafe Worker Relationship Specialty Start Date End Date Rashmi Finnegan ANP [address] [place] [address] PCP - General Family Medicine 01/25/21 documented as of this encounter
--- OUTSIDE RECORDS SUMMARY | 2024-12-01 15:48 | XMS_ITS | Encounter Summary ---
Author Organization [employer] Address [address] [facility] 7t [place] [address] Care Team Providers Care Punch Machine Hand Name Role Phone Rashmi Finnegan LUCI Primary Care Provider [phone] Encounter Details Date Type Department Care Team (Latest Contact Info) Description 12/01/2024 Travel Social History Tobacco Use Types Packs/Day Years Used Date Smoking Tobacco: Former Cigarettes Passive Smoke Exposure: Current Smokeless Tobacco: Never Alcohol Use Standard Drinks/Week [...] Description 01/12/2025 10:30 AM EDT Office Visit [facility] OPTOMETRY [address] [place], [place] [phone] Ghada Story, OD [address] [place] [address] documented as of this encounter Visit Diagnoses Not on filedocumented in this encounter Additional Health Concerns Assessment Noted Time PHQ-9 Depression Total Score: 0 08/24/20 24 3:14 PM EST documented as of this encounter Care Teams Punch Machine Hand Relationship Specialty Start Date End Date Rashmi Finnegan ANP [address] [place] [phone] PCP - General Family Medicine 01/25/21 documented as of this encounter
--- OUTSIDE RECORDS SUMMARY | 2024-12-01 15:48 | XMS_ITS | Encounter Summary ---
Author Organization [employer] [facility] Address [address] [facility] 7t [place] [address] Care Team Providers Care Specialty Department Supervisor Name Role Phone Rashmi Finnegan Primary Care Provider [phone] Encounter Details Date Type Department Care Team (Late st Contact Info) Description 10/06/2022 Orders Only [facility] MED & PEDS [address] [place], [place] [phone] Gisell Campos LPN Social History Tobacco Use Types Packs/Day [...] Description 01/12/2025 10:30 AM EDT Office Visit [facility] OPTOMETRY [address] [place] [address] TarkaGhada, OD [address] [place] [address] documented as of this encounter Visit Diagnoses Not on filedocumented in this encounter Care Teams Specialty Department Supervisor Relationship Specialty Start Date End Date Rashmi Finnegan ANP [address] [place] [id number] PCP - General Family Medicine 01/25/21 documented as of this encounter
--- OUTSIDE RECORDS SUMMARY | 2024-12-01 15:48 | XMS_ITS | Encounter Summary ---
Author Organization [employer] Address [address] [facility] [address] [address] 7[address] [place] [address] Care Team Providers Care Winder Helper Name Role Phone Rashmi Finnegan Primary Care Provider [phone] Reason for Visit * Reason Onset Date Comments Nurse Triage 12/01/2024 Encounter Details Date Type Department Care Team ([facility] st Contact Info) Description 12/01/2024 Telephone [facility] MEDICINE [address] [place], [place] [phone] Rashmi Finnegan ANP [address] [place], [place] [phone] Nurse Triage Social History Tobacco Use Types Packs/Day Years [...] AM EDT documented as of this encounter Miscellaneous Notes * Telephone Encounter - Holly Martinez RN - 12/01/2024 11:49 AM EST Called pt. Son. Son states that yesterday pt. Has been urinating very much and walking to the bathroom to urinate every 15 minutes. Pt Son states that pt. Has a fever of 107. Pt is alert and orientedso I wanted clarification before dialing 911. Pt. Son took pt. Temperature again and it was 38.8 degrees celsius which converted is a fever of 101.8. Advised pt. Son to give pt. Tylenol for fever. Pt Son also states that pt. States My lower abdomen feels like there are rocks in it and I have to constantly pee. Pt. Does not have any low back pain and no known Hx. Of Kidney stones. No blood in urine according to pt. Talking in background. Pt sounds alert and oriented and has been walking to bathroom steady to urinate. Pt. Son states pt. Is drinking plenty of water. Pt. Eating WNL. Pt. Son states that early this am pt. BP was 70/40 but then he retook it and it showed BP of 123/87. Booked pt. For 230pm appt. With Green team provider Dr. Lindsey for evaluation and advised can alsoput cold wet clothes under pt. Armpits and on back of neck to reduce fever. Protocol Used: Urinary Symptoms (Adult) Protocol-Based Disposition: Go to Office or Video Visit Now-appt. At 230pm today at [facility]. Video visit not offered Positive Triage Questions: * Fever > 100.4 F (38.0 C) * Urinating more frequently than usual (i.e., frequency) OR new-onset of the feeling of an urgent need to urinate (i.e., urgency) * All higher-acuity triage questions were negative * Telephone Encounter - Lou Pacheco - 12/01/2024 11:23 AM EST Symptoms: Fever, Urine Symptoms Outcome: Schedule an urgent appointment (within 1 hour) or talk to a nurse or provider soon Reason: Can't pass urine (can't pee) The caller accepted this outcome. Pt son Manjeet reported fever is at 107.3 Contact Manjeet (on hipaa) at [phone] denied marketing effectiveness manager documented in this encounter Plan of Treatment Upcoming Encounters Date Type Department Care Team (Late st Contact Info) Description 01/12/2025 10:30 AM EDT Office Visit [facility] OPTOMETRY [address] [place], [place] [phone] Ghada Story OD [address] [place] [address] documented as of this encounter Visit Diagnoses Not on filedocumented in this encounter Additional Health Concerns Assessment Noted Time PHQ-9 Depression Total Score: 0 08/24/20 24 3:14 PM EST documented as of this encounter Care Teams Winder Helper Relationship Specialty Start Date End Date Rashmi Finnegan ANP [address] [place] [address] PCP - General Family Medicine 01/25/21 documented as of this encounter
--- OUTSIDE RECORDS SUMMARY | 2024-12-01 15:48 | XMS_ITS | Encounter Summary ---
Author Organization [employer] [facility] Address [address] [facility] 7t [place] [address] Care Team Providers Care Research Environmental Engineer Name Role Phone Rashmi Finnegan Primary Care Provider [phone] Reason for Visit * Reason Comments Med Refill Encounter Details Date Type Department Care Team (Late st Contact Info) Description 10/07/2022 Refill [facility] MED & PEDS [address] [place], [place] [phone] Rashmi Finnegan ANP [address] [place] [address] Social History Tobacco Use Types Packs/Day Years [...] Description 01/12/2025 10:30 AM EDT Office Visit [facility] OPTOMETRY [address] [place] [address] TarkaGhada, OD [address] [place] [address] documented as of this encounter Visit Diagnoses Not on filedocumented in this encounter Care Teams Research Environmental Engineer Relationship Specialty Start Date End Date Rashmi Finnegan ANP [address] [place] [address] PCP - General Family Medicine 01/25/21 documented as of this encounter
--- OUTSIDE RECORDS SUMMARY | 2024-12-01 15:49 | XMS_ITS | Encounter Summary ---
Author Organization [employer] Address [address] [facility] [address] [facility] [address] 7[address] [place] [address] Care Team Providers Care Wood Finisher Name Role Phone Rashmi Finnegan Primary Care Provider [phone] Reason for Visit * Reason Onset Date Comments chart prep 11/23/2024 Encounter Details Date Type Department Care Team ([facility] st Contact Info) Description 11/23/2024 Telephone [facility] MEDICINE [address] [place], [place] [phone] Kacy Campoverde [place] chart prep Social History Tobacco Use Types Packs/Day Years [...] encounter Miscellaneous Notes * Telephone Encounter - Kacy Campoverde [place] - 11/23/2024 2:02 PM EST Chart Prep Labs: not done Images: done Vaccines due: yes Referrals: closed Screenings: none Overdue care gaps: Sbirt documented in this encounter Plan of Treatment Upcoming Encounters Date Type Department Care Team (Late st Contact Info) Description 01/12/2025 10:30 AM EDT Office Visit [facility] OPT[facility]ETRY [address] [place], [place] [phone] Ghada Story, OD [address] [place] [address] documented as of this encounter Visit Diagnoses Not on filedocumented in this encounter Additional Health Concerns Assessment Noted Time PHQ-9 Depression Total Score: 0 08/24/20 24 3:14 PM EST documented as of this encounter Care Teams Wood Finisher Relationship Specialty Start Date End Date Rashmi Finnegan ANP [address] [place] [address] PCP - General Family Medicine 01/25/21 documented as of this encounter
--- OUTSIDE RECORDS SUMMARY | 2024-12-01 15:49 | XMS_ITS | Encounter Summary ---
Author Organization [employer] Address [address] [facility] [address] [place] [address] Care Team Providers Care Pie Icer Machine Name Role Phone Rashmi Finnegan Primary Care Provider [phone] Reason for Visit * Reason Comments Pre-visit Planning SDOH Screening negat khanh and Tobacco screening negative Encounter Details Date Type Department Care Team ([facility] st Contact Info) Description 11/10/2024 Patient Outreach [facility] [address], [place] [phone] Rashmi Finnegan ANP [address] [place], [place] [phone] Pre-visit Planning (SDOH Screening negative and Tobacco screening negative) Social History Tobacco Use Types Packs/Day Years [...] AM EDT documented as of this encounter Progress Notes * Aixa Bellamy - 11/10/2024 1:01 PM EST SONIA Michaels placed successful outbound call to patient for pre-visit planning. Patient name and confirmed. Patient confirms appt date and time, and has transportation arrangements. Biggest concern for appointment at this time is no concerns. Patient advised to bring to appointment a photo id and insurance card. Appropriate screenings completed in anticipation of appointment. documented in this encounter Plan of Treatment Upcoming Encounters Date Type Department Care Team (Late st Contact Info) Description 01/12/2025 10:30 AM EDT Office Visit [facility] [address] [place] [address] TarkaGhada, OD [address] [place] [phone] documented as of this encounter Visit Diagnoses Not on filedocumented in this encounter Additional Health Concerns Assessment Noted Time PHQ-9 Depression Total Score: 0 08/24/20 24 3:14 PM EST documented as of this encounter Care Teams Pie Icer Machine Relationship Specialty Start Date End Date Rashmi Finnegan ANP [address] [place] [phone] PCP - General Family Medicine 01/25/21 documented as of this encounter
--- OUTSIDE RECORDS SUMMARY | 2024-12-01 15:49 | XMS_ITS | Clinical Summary ---
Author Organization [employer] Address [address] [facility] [address] [place] [address] Care Team Providers Care Strike Warfare/Missile Systems Officer Name Role Phone Murray Jas VERMA Primary Care Provider [phone] Allergies No known active allergies Medications atorvastatin (Lipitor) 80 MG tablet Take 80 mg by mouth at bedtime. 10/06/20 22 Active omeprazole (PriLOSEC) [address] capsule TAKE 1 CAPSULE BY MOUTH EVERY DAY BEFORE BREAKFAST 90 capsule 01/26/20 24 Active Diclofenac Sodium (Voltaren) 1 % gelIndications:Chron ic pain of right knee Apply up to 4x/d to affected joint(s) for pain/swelling 100 g 2 03/28/20 24 Active fluticasone (Flonase) 50 MCG/ACT nasal sprayIndications:Pritesh al congestion INSTILL 1-2 SPRAYS IN EACH NOSTRIL ONCE DAILY IN THE MORNING 48 g 03/28/20 24 Active tamsulosin (Flomax) 0.4 MG 24 hr capsuleIndications:B enign prostatic hyperplasia, unspecified whether lower urinary tract symptoms present TAKE 1 CAPSULE BY MOUTH DAILY AFTER THE SAME MEAL 90 capsule 1 03/28/20 24 Active clotrimazole (Lotrimin) 1 % creamIndications:Tin ea pedis of right foot APPLY TOPICALLY TO THE AFFECTED AREA(S) TWICE DAILY FOR 28 DAYS 30 g 1 05/23/20 24 Active finasteride (Proscar) 5 MG tablet Take 1 tablet by mouth Once per day. 07/08/20 24 Active Aspirin Low Dose 81 MG EC tabletIndications:Co ronary arteriosclerosis in patient with history of previous myocardial infarction TAKE 1 TABLET BY MOUTH EVERY DAY 90 tablet 1 01/02/20 25 Active lisinopril 2.5 MG tabletIndications:Es sential hypertension TAKE 1 TABLET BY MOUTH EVERY DAY 90 tablet 1 10/26/19 25 Active metoprolol succinate XL (Toprol-XL) 25 MG 24 hr tabletIndications:Es sential hypertension TAKE 2 TABLETS BY MOUTH EVERY DAY DO NOT BREAK, CRUSH, DISSOLVE OR CHEW 180 tablet 1 10/26/19 25 Active Active Problems Problem Noted Date Diagnosed Date Acute cystitis with hematuria 12/01/2024 Assessment & Plan (12/01/2024 2:36 PM EST): 84 yr old male with Pmhx CAD, [...] Pt to be transported via ambulance to [facility] for IVF, IV Abx and likely CT of abdomen to rule out pyelonephritis Pt agreeable with plan Hypotension 12/01/2024 Assessment & Plan (12/01/2024 2:37 PM EST): Likely due to urosepsis To be transported via ambulance to [facility] for IVF and IV Abx as well as potential admission overnight Case discussed with [facility] Pre-op examination 08/29/2024 Assessment & Plan (08/29/2024 9:27 AM EST): -patient verbalizes understanding that this encounter is to merely evaluate and provide objective data regarding his/her health. The risk associated with the surgery along with consent to undergo surgery is to be discussed with the surgeon and anesthesia team -This patient is at low risk for an low risk procedure. The patient is at acceptable risk for the proposed procedure. Reviewed with patient that no surgery is completely free of risk and this evaluation is to assist surgeon in accurately reviewing informed consent. -Medication list reviewed with patient and up to date. -The incidence of perioperative cardiovascular events varies according to the patient risk profile, patient's functional capacity, and risk of the proposed surgery. Active cardiac conditions that are contraindications to elective surgery: Surgery-Specific Cardiac Risk: low Cardiac risk by patient profile (RCRI): Patient has 1 risk factors corresponding to 5.4%risk of a major cardiac event during surgery. Functional capacity = >4 METS. The patient reports being able to walk up 1 one flight of stairs and 2 blocks without stopping. -Meets ACC/AHA guidelines to proceed with this non-cardiac surgery without additional testing -BP is maintained on oral agents: lisinopril 2.5 mg and metoprolol 25 mg -medications: advised to hold tamsulosin, finasteride, NSAIDs and aspirin 1 week before procedure. Hold lisinopril day of the procedures. 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 Will rule out phlebitis Bilateral foot pain 04/12/2024 Assessment & Plan (04/12/2024 2:47 PM EDT): On exam, evidence of OA, but nothing to suggest inflammatory arthritis. Pt has painless full ROM of both his ankles and toes. He c/o burning sensation on both feet Will obtain a TSH, B12 NCS to rule out peripheral Neuropathy. Pending on results might need to be started on a medication Venous (peripheral) insufficiency 04/12/2024 Assessment & Plan (04/12/2024 2:44 PM EDT): Patient's symptomatology and examination indicative of venous vascular insufficiency. Reports he has been keeping his legs elevated when sitting but not using the compressive stockings as prescribed by his PCP. Today son was given the phone for [employer] to call and have them delivered. Plan: Compressive stockings, Keep legs elevated when sitting at all times Will refer to Dr. Porter Douglas for evaluation as well. Will obtain a Venous US to rule out phlebitis. 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 Ordering a UA for test of cure. Diverticulitis 01/28/2023 Assessment & Plan (01/28/2023 5:04 PM EDT): Denies N/V, abdominal pain, inability to tolerate fluids, fever, There is no evidence for dietary restrictions in acute uncomplicated diverticulitis. (Uptodate) He states he is not having any issues and feels like his old self. I didn't feel that recommending dietary restrictions was necessary. F/up PRN, ed precautions explained. Prostate nodule 01/28/2023 Assessment & Plan (01/28/2023 10:22 AM EDT): ER visit 01/14/23 abdominal and pelvic US abdominal and pelvic ultrasound showed no intraabdominal or pelvic abscess, patient noted to have 2 cm nodule arising from prostate gland and projecting into the bladder therefore recommend outpatient follow-up with Urology Patient states he did not have a urology referral. 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 07/10/2022 Dyslipidemia 04/04/2021 Essential hypertension 04/04/2021 Assessment & Plan (01/28/2023 9:37 AM EDT): Does patient monitor BP at home. Does patient have blood pressure cuff at home? Resolved Problems Problem Noted Date Diagnosed Date Resolved Date Urinary tract infection without hematuria 01/28/2023 03/28/2024 Assessment & Plan (01/28/2023 10:16 AM EDT): UA was negative. Encounters Date Type Department Care Team Description 12/01/2024 2:30 PM EST Office Visit [facility] [address] [place] [address] Jareth Read MD Acute cystitis with hematuria (Primary Dx); Hypotension, unspecified hypotension type; UTI symptoms 12/01/2024 Travel 12/01/2024 Telephone [facility] [address] [place] [address] Jas Murray ANP Nurse Triage 11/24/2024 11:00 AM EST Office Visit [address] [address] Jas Murray ANP 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 (Primary Dx); Essential hypertension; Dyslipidemia 11/24/2024 Travel 11/23/[address] [address] Kacy Campoverde [place] chart prep 11/10/2024 Patient Outreach [address] [address] Jas Murray ANP Pre-visit Planning (SDOH Screening negative and Tobacco screening negative) 10/26/[address] [address] Jas Murray ANP Essential hypertension 10/25/2024 Orders Only [facility] External Provider, 10/19/[address] [address] Jas Murray ANP 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 10/11/[address] [address] Carson Al [place] November recall from Last 3 Months Immunizations Name Administration Dates Next Due Influenza injectable quadriv alent preservative free 01/28/2023 Pfizer Covid-19 Vaccine 12+ 10/08/2021,,10/29/2020 Pfizer Covid-19 Vaccine 12+ Bivalent 11/25/2022 Pneumococcal Conjugate PCV 20 01/28/2023 Tdap 01/28/2023 Zoster, Recombinant 04/10/2023,01/28/2023 Social History Tobacco Use Types Packs/Day Years [...] not to disclose 2021 10:37 AM EDT Last Filed Vital Signs Vital Sign Reading [...] Height 170.2 cm (5' 7 ) 12/01/2024 2:09 PM EST Body Mass Index 22.99 12/01/2024 2:09 PM EST Plan of Treatment Upcoming Encounters Date Type Department Care Team (Late st Contact Info) Description 01/12/2025 10:30 AM EDT Office Visit [facility] [address] [place] [address] Porsha Ghada, OD [address] [place] [address] Health Maintenance Due Date Last Done Comments RSV Patients and Patients Aged 60 years or older (1 - 1-dose 75+ series) 2014 Dental Prophylaxis 11/08/2022 05/07/2022 Dental X-Ray: Bitewings 04/24/2023 04/23/2022 COVID-19 Vaccine ( season) 2024 11/25/2022, 10/08/2021, 11/19/2020, Additional history exists Influenza Vaccine (#1) 2024 01/28/2023 Dental Oral Exam 09/08/2024 03/07/2024, 04/23/2022 Depression Screening 08/24/2025 08/24/2024, 08/24/20 Diabetes: Hemoglobin A1C 08/25/2025 08/25/2024, 07/0 03/2021 SDOH Screening 11/10/2025 11/10/2024 Alcohol/Substance Use Screening 11/24/2025 11/24/2024 Tobacco Screening 12/01/2025 12/01/2024 Dental X-Ray: Full Mouth 03/08/2027 03/07/2024, 07/0 03/2022 Lipid Panel 08/25/2029 08/25/2024, 04/23/2021 DTaP/Tdap/Td Vaccines (2 - Td or Tdap) 01/28/2033 01/28/2023 Pneumococcal Vaccine: 50+ Years Completed 01/28/2023 Zoster Vaccines Completed 04/10/2023, 01/28/2023 HIB Vaccines Aged Out No longer eligi ble based on patient's age to complete this topic HPV Vaccines Aged Out No longer eligi ble based on patient's age to complete this topic Hepatitis A Vaccines Aged Out No long er eligible based on patient's age to complete this topic Hepatitis B Vaccines Aged Out No long er eligible based on patient's age to complete this topic IPV Vaccines Aged Out No longer eligi ble based on patient's age to complete this topic Meningococcal Vaccine Aged Out No vikki bolivar eligible based on patient's age to complete this topic RSV under 20 months Aged Out No longe r eligible based on patient's age to complete this topic Rotavirus Vaccines Aged Out No longer eligible based on patient's age to complete this topic Procedures Procedure Name Priority Date/Time Associated Diagnosis Comments POCT URINALYSIS DIPSTICK Routine 12/01/2024 2:27 PM EST UTI symptoms VASC US LOWER EXTREMITY VENOUS INSUFFICIENCY BILATERAL Routine 10/25/2024 1:13 PM EST HEMOGLOBIN A1C Routine 08/25/2024 11:19 AM EST Mononeuropathy LIPID PANEL, STANDARD Routine 08/25/2024 11:19 AM EST 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 PANORAMIC RADIOGRAPHIC IMAGE Routine 03/07/2024 10:00 AM EDT PERIODIC ORAL EVALUATION - ESTABLISHED PATIENT Routine 03/07/2024 10:00 AM EDT PROPHYLAXIS - ADULT Routine 05/07/2022 1 2:00 AM EDT INTRAORAL - COMPLETE SERIES OF RADIOGRAPHIC IMAGES Routine 04/23/2022 12:00 AM EDT from Last 3 Months or Most Recently Relevant to Health Maintenance Results * (ABNORMAL) POCT Urinalysis (12/01/2024 2:27 [...] Expiration Date Urine 12/01/2024 2:27 PM EST Jareth Roe MD POINT OF CARE TEST EN TER/EDIT ORDERABLES Final Result * VASC US Lower Extremity Venous Insufficiency Bilateral (10/25/2024 1:13 PM EST) 10/25/2024 1:13 PM EST Narrative [facility] - 10/31/2024 8:17 AM EST ?[address] ?[place] [address] ? Ultrasound Report ? Signed ? Patient: Oliver ZulmaEvan ?MR#: [id number] ?? [id number] ? : 1940 ?Acct:[id number] ? Age/Sex: 84 / M ?ADM Date: 10/25/24 ? Loc: HO.US ? Attending Dr: Latisha Howell PA-C ? Ordering Physician: Latisha Howell PA-C ?? Date of Service: 10/25/24 ?? Procedure(s): US venous insuf bilat ?? Accession Number(s): [id number] ? cc: Latisha Howell PA-C; JAS MURRAY NP ? EXAMINATION: ?? US LOWER EXTREMITY VENOUS (REFLUX EXAM), BILATERAL ? CLINICAL INFORMATION: ?? 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 ? COMPARISON: ?? No priors. ?? Correlated to venous Doppler ultrasound dated April 13, 2024. ? TECHNIQUE: ?? Color flow triplex imaging and compression Doppler was performed to ?? evaluate both the deep and the superficial systems bilaterally. To ?? evaluate the superficial system, the examination was performed in the ?? upright position. Color-flow Doppler ultrasound and compression ?? ultrasound were utilized. In addition, maneuvers were utilized to ?? demonstrate reflux. ? FINDINGS: ? 1. DEEP VENOUS ULTRASOUND OF THE RIGHT LOWER EXTREMITY: ?? Common Femoral Vein: Compressible, normal respiratory variation and ?? augmented flow. ? Femoral Vein: Compressible, normal color flow and augmentation. ?? Popliteal Vein: Compressible, normal augmentation. ? Deep Reflux: There is no evidence of reflux in the deep system in ?? either the common femoral vein, superficial femoral or the popliteal ?? vein. ? There is a 5 cm lobulated anechoic abnormality in the right popliteal ?? fossa without flow on color Doppler interrogation. ? 2. SUPERFICIAL ULTRASOUND WITH DOPPLER OF RIGHT LOWER EXTREMITY: ? GREAT SAPHENOUS VEIN: ?? Saphenofemoral Junction: 0.6 cm; Reflux: 0 ms ?? Proximal Thigh: Absent. ?? Mid Thigh: Absent. ?? Distal Thigh: 0.1 cm; Reflux: 0 ms ?? At Knee: 0.1 cm; Reflux: 3052 ms ?? Proximal Calf: 0.1 cm; Reflux: 0 ms ?? Mid Calf: 0.1 cm; Reflux: 2196 ms ?? Distal Calf: 0.1 cm; Reflux: 0 ms ? DUPLICATED MEDIAL GREAT SAPHENOUS VEIN: ?? Diameter: None imaged ?? Reflux: NA ? DUPLICATED LATERAL GREAT SAPHENOUS VEIN: ?? Diameter: None imaged ?? Reflux: NA ? SMALL SAPHENOUS VEIN: ?? Saphenopopliteal Junction: 0.1 cm; Reflux: 0 ms ?? Proximal: 0.2 cm; Reflux: 0 ms ?? Distal: 0.1 cm; Reflux: 0 ms ? VEIN OF GIACOMINI: ?? Size: NA ?? Reflux: NA ? PERFORATORS: ?? Location: None imaged ?? Size: NA ?? Reflux: NA ? VARICOSITIES: ?? Location: None imaged. ?? Size: NA ?? Reflux: NA ? 3. DEEP VENOUS ULTRASOUND OF THE LEFT LOWER EXTREMITY: ?? Common Femoral Vein: Compressible, normal respiratory variation and ?? augmented flow. ? Femoral Vein: Compressible, normal color flow and augmentation. ?? Popliteal Vein: Compressible, normal augmentation. ? Deep Reflux: There is no evidence of reflux in the deep system in ?? either the common femoral vein, superficial femoral or the popliteal ?? vein. ? There is no evidence of a Manning's cyst. ? Nonspecific prominent lymph nodes in the left inguinal region. ? 4. SUPERFICIAL ULTRASOUND WITH DOPPLER OF LEFT LOWER EXTREMITY: ? GREAT SAPHENOUS VEIN: ?? Saphenofemoral Junction: 0.4 cm; Reflux: 0 ms ?? Proximal Thigh: Absent. ?? Mid Thigh: Absent. ?? Distal Thigh: Absent. ?? At Knee: Absent. ?? Proximal Calf: Absent. ?? Mid Calf: 0.1 cm; Reflux: 0 ms ?? Distal Calf: 0.1 cm; Reflux: 0 ms ? DUPLICATED MEDIAL GREAT SAPHENOUS VEIN: ?? Diameter: None imaged ?? Reflux: NA ? DUPLICATED LATERAL GREAT SAPHENOUS VEIN: ?? Diameter: None imaged. ?? Reflux: NA ? SMALL SAPHENOUS VEIN: ?? Saphenopopliteal Junction: 0.2 cm; Reflux: 0 ms ?? Proximal: 0.2 cm; Reflux: 3196 ms ?? Distal: 0.2 cm; Reflux: 0 ms ? VEIN OF GIACOMINI: ?? Size: NA ?? Reflux: NA ? PERFORATORS: ?? Location: None imaged ?? Size: NA ?? Reflux: NA ? VARICOSITIES: ?? Location: None Imaged ?? Size: NA ?? Reflux: NA ? / venous insuf bilat ?? IMPRESSION: ?? Right: Great saphenous vein venous insufficiency at and below the knee. ?? 5 cm popliteal cyst. ? Left: Small saphenous vein insufficiency at the mid calf. ?? Incidentally, Focal venous insufficiency/reflux at the left femoral ?? vein. ? Electronically signed by: ??Eduin Núñez MD ??10/31/2024 08:14 AM ?? EST RP ? Dictated By: ?Eduin Dean MD ? Signed By: ?<Electronically signed by Eduin Craig MD in OV> ? 10/31/24 0814 ? DD/ 1313 ? TD/TT: 10/25/24 1358 ? City Maintenance Manager: ? 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 COMPARISON: No priors. Correlated to venous Doppler ultrasound dated April 13, 2024. TECHNIQUE: Color flow triplex imaging and compression Doppler was performed to evaluate both the deep and the superficial systems bilaterally. To evaluate the superficial system, the examination was performed in the upright position. Color-flow Doppler ultrasound and compression ultrasound were utilized. In addition, maneuvers were utilized to demonstrate reflux. FINDINGS: 1. DEEP VENOUS ULTRASOUND OF THE RIGHT LOWER EXTREMITY: Common Femoral Vein: Compressible, normal respiratory variation and augmented flow. Femoral Vein: Compressible, normal color flow and augmentation. Popliteal Vein: Compressible, normal augmentation. Deep Reflux: There is no evidence of reflux in the deep system in either the common femoral vein, superficial femoral or the popliteal vein. There is a 5 cm lobulated anechoic abnormality in the right popliteal fossa without flow on color Doppler interrogation. 2. SUPERFICIAL ULTRASOUND WITH DOPPLER OF RIGHT LOWER EXTREMITY: GREAT SAPHENOUS VEIN: Saphenofemoral Junction: 0.6 cm; Reflux: 0 ms Proximal Thigh: Absent. Mid Thigh: Absent. Distal Thigh: 0.1 cm; Reflux: 0 ms At Knee: 0.1 cm; Reflux: 3052 ms Proximal Calf: 0.1 cm; Reflux: 0 ms Mid Calf: 0.1 cm; Reflux: 2196 ms Distal Calf: 0.1 cm; Reflux: 0 ms DUPLICATED MEDIAL GREAT SAPHENOUS VEIN: Diameter: None imaged Reflux: NA DUPLICATED LATERAL GREAT SAPHENOUS VEIN: Diameter: None imaged Reflux: NA SMALL SAPHENOUS VEIN: Saphenopopliteal Junction: 0.1 cm; Reflux: 0 ms Proximal: 0.2 cm; Reflux: 0 ms Distal: 0.1 cm; Reflux: 0 ms VEIN OF GIACOMINI: Size: NA Reflux: NA PERFORATORS: Location: None imaged Size: NA Reflux: NA VARICOSITIES: Location: None imaged. Size: NA Reflux: NA 3. DEEP VENOUS ULTRASOUND OF THE LEFT LOWER EXTREMITY: Common Femoral Vein: Compressible, normal respiratory variation and augmented flow. Femoral Vein: Compressible, normal color flow and augmentation. Popliteal Vein: Compressible, normal augmentation. Deep Reflux: There is no evidence of reflux in the deep system in either the common femoral vein, superficial femoral or the popliteal vein. There is no evidence of a Manning's cyst. Nonspecific prominent lymph nodes in the left inguinal region. 4. SUPERFICIAL ULTRASOUND WITH DOPPLER OF LEFT LOWER EXTREMITY: GREAT SAPHENOUS VEIN: Saphenofemoral Junction: 0.4 cm; Reflux: 0 ms Proximal Thigh: Absent. Mid Thigh: Absent. Distal Thigh: Absent. At Knee: Absent. Proximal Calf: Absent. Mid Calf: 0.1 cm; Reflux: 0 ms Distal Calf: 0.1 cm; Reflux: 0 ms DUPLICATED MEDIAL GREAT SAPHENOUS VEIN: Diameter: None imaged Reflux: NA DUPLICATED LATERAL GREAT SAPHENOUS VEIN: Diameter: None imaged. Reflux: NA SMALL SAPHENOUS VEIN: Saphenopopliteal Junction: 0.2 cm; Reflux: 0 ms Proximal: 0.2 cm; Reflux: 3196 ms Distal: 0.2 cm; Reflux: 0 ms VEIN OF GIACOMINI: Size: NA Reflux: NA PERFORATORS: Location: None imaged Size: NA Reflux: NA VARICOSITIES: Location: None Imaged Size: NA Reflux: NA US/US venous insuf bilat IMPRESSION: Right: Great saphenous vein venous insufficiency at and below the knee. 5 cm popliteal cyst. Left: Small saphenous vein insufficiency at the mid calf. Incidentally, Focal venous insufficiency/reflux at the left femoral vein. Electronically signed by: Eduin Núñez MD 10/31/2024 08:14 AM EST Dictated By: Eduin Dean MD Signed By: <Electronically signed by Eduin Craig MDin OV> 10/31/24 0814 DD/ 1313 TD/TT: 10/25/24 1358 City Maintenance Manager: us External Provider CV VASC ULAR PROCEDURES Edited Result - Final [facility] [address] [place] [phone] * Hemoglobin A1c (08/25/2024 11:19 AM EST) Hemoglobin A1c 5.7 <6.0 % [facility] Comment:Hemoglobin A1C Refer ence Range Adults: 4.8 - 6.0 % Non diabetic: < 6.0 % Goal: < 7.0 %Additional Action Suggested: > 8.0 %Note: Hemoglobin A1c results are invalid for patients with abnormal amounts of HbF. Blood transfusions may impact the HbA1c concentration in the patient sample. Estimated Average Glucose 117 mg/dL [facility] Comment:eAG = Estimated ave rage glucose which is %A1C expressed asaverage glucose, using the formula of the [id number] Glucose study (ADAG), Diabetes Care, Vol.31,#8,May. 2007 Blood Venous blood specimen / Unknown 08/25/2024 11:19 AM EST 08/25/2024 1:14 PM EST Jas Murray [facility] BLOOD ORDERABLES Final Resul t [facility] [address] [place] [address] [phone] * (ABNORMAL) Lipid Panel, Standard (08/25/2024 11:19 AM EST) Triglycerides 91 <150 mg/dL [facility] Comment:Desirable Triglyceri de: less than 150 mg/dLBorderline High Triglyceride 150-199 mg/dLHigh Triglyceride: 200-499 mg/dLVery High Triglyceride: greater than or equal to 5OO mg/dL Cholesterol 182 <200 mg/dL [facility] Comment:Desirable Cholestero l: less than 200 mg/dLBorderline High Cholesterol: 200-239 mg/dLHigh Cholesterol: greater than 239 mg/dL LDL Cholesterol Calculated 113(H) <100 mg/dL [facility] Comment:Desirable LDL: less than 100 mg/dLNear Optimal/Above Optimal LDL: 110- 129 mg/dLBorderline High LDL: 130-159 mg/dLHigh LDL: 160-189 mg/dLVery High LDL: greater than or equal to 190 mg/dL HDL Cholesterol 51 >40 mg/dL [facility] Comment:Desirable HDL: great er than 40 mg/dL Note: This HDL assay may give artificially low results in patients with liver disease. Blood Venous blood specimen / Unknown 08/25/2024 11:19 AM EST 08/25/2024 1:14 PM EST Jas Murray [facility] BLOOD ORDERABLES Final Resul t [facility] [address] [place] [address] [phone] from Last 3 Months or Most Recently Relevant to Health Maintenance Insurance [facility] STANDARD DENTAL-[facility] MEDICAID STAND ADULT Care Teams Strike Warfare/Missile Systems Officer Relationship Specialty Start Date End Date Jas Murray ANP [address] [place] [id number] PCP - General Family Medicine 01/25/21
--- OUTSIDE RECORDS SUMMARY | 2024-12-01 15:49 | XMS_ITS | Encounter Summary ---
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 (Primary Dx); Essential hypertension; Dyslipidemia Social History Tobacco Use Types Packs/Day Years Used Date Smoking Tobacco: Never Passive Smoke Exposure: Never Smokeless Tobacco: Never Tobacco Cessation:Counseling Given: Not [...] Sign Reading Time Taken Comments Blood Pressure 140/78 11/24/2024 11:20 AM EST Pulse 52 11/24/2024 10:59 AM EST Temperature 36.4 ??C (97.5 ??F) 11/24/2024 10:[address] Respiratory Rate 14 11/24/2024 10:59 AM EST Oxygen Saturation 99% 11/24/2024 10:59 AM EST Inhaled Oxygen Concentration - - Weight 79.7 kg (175 lb 9.6 oz) 11/24/2024 10:59 AM EST Height - - Body Mass Index 27.5 08/24/2024 2:43 PM EST documented in this encounter Progress Notes * LUCI Rojas - 11/24/2024 11:00 AM EST SUBJECTIVE: Evan Maya is a 84 y.o. year old male who presents for chronic disease management. Denies recent illness, injury, or hospitalization. PMH hypertension, BPH, prediabetes, diverticulosis, dyslipidemia, mild peripheral neuropathy bilateral lower extremities, left lumbar radiculopathy Specialists include: [facility] urology Dr. Estrada [facility] vascular Dr. Douglas [facility] orthopedics Abena Camacho PA-C (for knee pain and Manning's cyst) [facility] cardiology Dr. Lubin Acute Concerns: Saw vascular who says there is no vascular insufficiency but does continue to recommend compressionsocks, elevation and exercise. Evan wears compression sometimes and sometimes not. He is doing okay in this regard. Blood pressure has been good at home. Taking medications as prescribed. Would like information regarding the RSV vaccine. A1c 5.7 when checked in August. Renal function within normal limits WBCs were elevated in August labs and so ordered CBC for repeat Lab Results Component Value Date CHOL 182 08/25/2024 HDL 51 08/25/2024 LDLCHOLCAL 113 (H) 08/25/2024 TRIG 91 08/25/2024 He follows w/ urology for BPH and bladder concerns: 11/07/24-- Evan is an 84-year-old male who is here with his son for follow-up BPH. He was initially evaluated 05/26/2024 due to UTI and CT scan findings of mural thickening the bladder. He was last seen 07/08/2024 at which time cystoscopy was done resulting bladder wall thickening no suspicious bladder lesions and he was started on Proscar in addition to the tamsulosin. He states he is urinating without difficulty does get up at night 1-4 times. Denies dysuria. Urinalysis negative for blood or leukocytes. Follow-up in 6 months re- evaluate with ultrasound kidneys and PSA. 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 No pertinent surgical history. No family history on file. Review of Systems Constitutional: Negative for chills and fever. HENT: Negative for sore throat. Eyes: Negative for visual disturbance. Respiratory: Negative for cough and shortness of breath. Cardiovascular: Negative for chest pain. Gastrointestinal: Negative for constipation and diarrhea. Endocrine: Negative for polydipsia, polyphagia and polyuria. Genitourinary: Negative for dysuria. Neurological: Negative for dizziness, weakness and headaches. OBJECTIVE: Vitals: 11/24/24 1059 11/24/24 1120 BP: (!) 167/70 140/78 BP Location: Right arm Left arm Patient Position: Sitting Sitting BP Cuff Size: Adult Large adult Pulse: 52 Resp: 14 Temp: 97.5 ??F (36.4 ??C) TempSrc: Temporal SpO2: 99% Weight: 175 lb 9.6 oz (79.7 kg) Physical Exam Vitals reviewed. Constitutional: General: He is not in acute distress. Appearance: Normal appearance. He is not ill-appearing. HENT: Head: Normocephalic and atraumatic. Eyes: General: No scleral icterus. Extraocular Movements: Extraocular movements intact. Pupils: Pupils are equal, round, and reactive to light. Cardiovascular: Rate and Rhythm: Normal rate and regular rhythm. Pulmonary: Effort: Pulmonary effort is normal. No accessory muscle usage or respiratory distress. Musculoskeletal: Right lower leg: No edema. Skin: General: Skin is warm and dry. Neurological: Mental Status: He is alert and oriented to person, place, and time. Psychiatric: Mood and Affect: Mood normal. Behavior: Behavior normal. ASSESSMENT/PLAN Evan was seen today for hypertension. 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 Per son home blood pressures are at goal. Gave log and asked to please call clinic if regularly over 150/90. At/near goal today, </= 140/80. Continue to encourage low salt diet, regular exercise, home BP monitoring, compliance with medications. If adjustment to blood pressure medications are needed we will go up on his lisinopril which is at only 2.5 mg once daily at this time. Call clinic if BP is frequently >150/90 Go to ED/call 911 if > 170/100 and having sx such as THOMAS, visual changes, chest pain, SOB Last renal function: Lab Results Component Value Date GLUCOSE 116 (H) 08/25/2024 NA 141 08/25/2024 K 4.4 08/25/2024 CO2 24 08/25/2024 CL 108 08/25/2024 BUN 21 (H) 08/25/2024 CREATININE 1.00 08/25/2024 EGFR >60 08/25/2024 Lab Results Component Value Date MICROALBCREA 3 04/23/2021 No results found for: MICROALBCREU - Albumin, Random Urine W/Creatinine; Future Dyslipidemia Continue high intensity statin Update lipids before follow-up appointment Follow Up: 4 months or sooner if needed Current Outpatient Medications on File Prior to Visit Medication Sig Dispense Refill Aspirin Low Dose 81 MG EC tablet TAKE 1 TABLET BY MOUTH EVERY DAY 90 tablet 1 atorvastatin (Lipitor) 80 MG tablet Take 80 mg by mouth at bedtime. clotrimazole (Lotrimin) 1 % cream APPLY TOPICALLY TO THE AFFECTED AREA(S) TWICE DAILY FOR 28 DAYS 30 g 1 Diclofenac Sodium (Voltaren) 1 % gel Apply up to 4x/d to affected joint(s) for pain/swelling 100 g 2 finasteride (Proscar) 5 MG tablet Take 1 tablet by mouth Once per day. fluticasone (Flonase) 50 MCG/ACT nasal spray INSTILL 1-2 SPRAYS IN EACH NOSTRIL ONCE DAILY IN THE MORNING 48 g 0 lisinopril 2.5 MG tablet TAKE 1 TABLET BY MOUTH EVERY DAY 90 tablet 1 metoprolol succinate XL (Toprol-XL) 25 MG 24 hr tablet TAKE 2 TABLETS BY MOUTH EVERY DAY DO NOT BREAK, CRUSH, DISSOLVE OR CHEW 180 tablet 1 omeprazole (PriLOSEC) [address] capsule TAKE 1 CAPSULE BY MOUTH EVERY DAY BEFORE BREAKFAST 90 capsule 0 tamsulosin (Flomax) 0.4 MG 24 hr capsule TAKE 1 CAPSULE BY MOUTH DAILY AFTER THE SAME MEAL 90 capsule 1 No current facility-administered medications on file prior to visit. 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 Expected: 11/24/2024 (Approximate), Expires: 11/24/2025 documented as of this encounter Visit Diagnoses Diagnosis 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
--- NOTE | 2024-12-01 16:14 | ED_ITS ---
HPI - Male Genitourinary General Chief complaint: Urogenital-Male Stated complaint: FEVER,?UTI FROM MD OFFICE PER EMS Time Seen by Provider: 12/01/24 16:01 Source: patient and EMS Mode of arrival: EMS Limitations: no limitations History of Present Illness ED Provider: Dr. Geraldine Lainez HPI Narrative: Patient comes to the emergency room complaining of dysuria for 2 days. Patient states that earlier today he went to see his primary care physician,, he was diagnosed with a UTI and sent to the emergency room. According to EMS, the staff at the patient's PCP's office, reported a blood pressure in the low 80s. However, since the patient has a arrived to the emergency room, blood pressure has been within normal limits. Patient denies any significant abdominal pain other than significant dysuria, denies hematuria, denies flank pain, no fever or chills. Related Data Home Medications ?Medication ?Instructions ?Recorded ?Confirmed lisinopril 2.5 mg tablet 2.5 mg PO DAILY 01/22/22 11/07/24 omeprazole 20 mg capsule,delayed 20 mg PO DAILY 01/22/22 11/07/24 release metoprolol succinate 50 mg 50 mg PO DAILY 05/13/22 11/07/24 tablet,extended release 24 hr diclofenac sodium 1 % topical gel 2 g topical QD-QID PRN PAIN IN 01/09/23 11/07/24 RIGHT KNEE fluticasone propionate 50 2 spray intranasal DAILY 01/09/23 11/07/24 mcg/actuation nasal spray,suspension Previous Rx's ?Medication ?Instructions ?Recorded aspirin 81 mg tablet,delayed 81 mg PO DAILY #90 tabs 11/12/23 release (Adult Aspirin Regimen) atorvastatin 80 mg tablet 80 mg PO BEDTIME #90 tabs 07/25/24 finasteride 5 mg tablet (Proscar) 5 mg PO DAILY enlarged prostate 90 11/07/24 days #90 tabs tamsulosin 0.4 mg capsule 0.4 mg PO DAILY #90 caps 11/07/24 Allergies Allergy/AdvReac Type Severity Reaction Status Date / Time No Known Allergies Allergy Verified 12/01/24 15:32 Review of Systems 2 Review of Systems: Constitutional : No Weight loss, No Fever, No Chills, No Night Sweats, No Fatigue, No Malaise ENT/Mouth : No Hearing loss, No Ear Pain, No Nasal Congestion, No Sinus Pain, No Hoarseness, No sore throat, No Rhinorrhea, No Swallowing Difficulty Eyes: No Eye Pain, No Swelling, No Redness, No Foreign Body, No Discharge, No Vision Changes Cardiovascular : No Chest Pain, No SOB, No Dyspnea on Exertion, No Orthopnea, No Edema, No Palpitations Respiratory : No Cough, No Sputum, No Wheezing, No Smoke Exposure, No Dyspnea Gastrointestinal : No Nausea, No Vomiting, No Diarrhea, No Constipation, No abdominal Pain, No Hematochezia, No Melena Genitourinary : no irregular bleeding, complaining of Dysuria, No Urinary Frequency, No Hematuria, No Urinary Incontinence, No Urgency, No Flank Pain, No Urinary Flow Changes, No Hesitancy Musculoskeletal : No joint pain, No Myalgias, No Joint Swelling Skin : No Skin Lesions, No rash Neuro : No Weakness, No Numbness, No Paresthesias, No Loss of Consciousness, No Dizziness, No Headache Psych : No Anxiety/Panic, No Depression, No SI/HI/AH/VH, No Social Issues, Heme/Lymph: No Bruising, No Bleeding,No Lymphadenopathy Endocrine : No Polyuria, No Polydipsia, No Temperature Intolerance PMFSH Past Medical History Medical History Atherosclerotic cardiovascular disease Sleep apnea Urinary retention Hypercholesteremia Hypertension Surgical History History of coronary artery bypass graft (~2006) Family History Family History Father No problems noted. Mother No problems noted. Social History Social History Household Members: Spouse and Children Housing: House Do you presently have visiting nurse or other home services: No Patient Tobacco Use Status: Never used Tobacco Smoked in Last 30 Days: No e-Cigarette/Vaping Use: Never Used Use of substances other than those prescribed or required for medical reasons: No Advance Directives: No Advance Directives Information Provided: No Do you have a plan to hurt others: No Plan service: No Current occupational status: retired Physical Exam 2 Vital Signs: Vital Signs: Last Vital Signs Temp 101 F H 12/01/24 20:22 Pulse 80 12/01/24 20:22 Resp 18 12/01/24 20:22 BP 151/55 H 12/01/24 20:22 Pulse Ox 96 12/01/24 20:22 O2 Del Method Room Air 12/01/24 20:22 BMI result Body Mass Index 26.4 Const: Other: Appearance: Alert. Oriented X3. No acute distress. Eyes: Pupils equal, round and reactive to light. ENT: Pharynx normal. Neck: Normal inspection. Neck supple. No lymph nodes noted. No crepitus CVS: Normal heart rate and rhythm. Pulses normal. Normal S1 and S2 Respiratory: No respiratory distress. Breath sounds normal. No Wheezing. No rales Abdomen: Soft and nontender. No rigidity. No distention. No CVA tenderness Skin: Skin warm and dry. Normal skin color. Normal skin turgor. Extremities: No lower extremity edema. No Lacerations. No Rash Neuro: Oriented X 3. No motor deficit. No sensory deficit. Moving all extremities. No slurred speech. CN 2 through 12 grossly intact Psych: calm, cooperative, normal affect Course Course Course Narrative: All of patient's labs pending So far, since the patient arrived to the emergency room, patient's blood pressure has been between 109 and 113 systolic, asymptomatic, only complaining of dysuria with urination Medications Administered Discontinued Medications Generic Name Dose Route Start Last Admin Trade Name Freq PRN Reason Stop Dose Admin Ceftriaxone Sodium 1 gm 12/01/24 17:07 12/01/24 17:22 Ceftriaxone Sodium 1 Gm Vial IVPUSH 12/01/24 17:08 1 gm ONCE ONE Administration Sodium Chloride 1,000 mls @ 999 mls/hr 12/01/24 17:07 12/01/24 18:22 Ns IVCONT 12/01/24 18:07 Infused .Q1H1M ONE Infusion Iohexol 100 ml 12/01/24 19:06 12/01/24 19:06 Iohexol 350 Mg/Ml 100 Ml Infus..Btl IV 12/01/24 19:07 85 ml ONCE ONE Administration Medical Decision Making Medical Decision Making [facility] Narrative: Patient is well-appearing, blood pressure within normal limits, even a bit elevated after fluids. My interpretation of labs: Patient's white blood cell count is 28.6. No bands. Normal chemistry, urinalysis positive for UTI. CT scan does not show any acute abnormality, prostatomegaly which patient states that he has been seen by PCP and takes finasteride. Patient is well-appearing. No flank pain. Patient has already been treated with IV fluids and antibiotics. Normal lactic acid, no episodes of hypotension. I was informed by the patient's nurse that around 830, patient had a fever. Patient's vitals remained stable. I discussed the patient with Dr. Garcia, patient being admitted, Differential Diagnosis Differential Diagnoses: The differential diagnosis associated with the presentation includes (UTI, pyelonephritis) Admission/Observation Consideration of admission/observation: Escalation of care including admission/observation considered Consult Healthcare Provider Management of the patient was discussed with: Hospitalist Lab Data MDM Lab Attestation statement: I reviewed the patient's lab results. 12/01/24 16:48 12/01/24 16:48 Labs: Lab Results 12/01/24 Range/Units 16:48 WBC 28.6 H (4.8-10.8) X10*3/uL RBC 4.32 L (4.60-5.80) X10*6/uL Hgb 12.8 L (14.0-18.0) g/dl Hct 38.0 L (42.0-52.0) % MCV 88.0 (80.0-98.0) fL MCH 29.6 (27.0-33.0) pg MCHC 33.7 (31.0-36.0) g/dl RDW 13.9 (11.0-16.0) % Plt Count 148 L D (160-400) X10*3/uL MPV 11.2 (9.4-12.4) fL Immature Gran % (Auto) 1.3 H (0.0-0.4) % Neut % (Auto) 85.1 H (45-73) % Lymph % (Auto) 5.3 L (20-40) % [place] % (Auto) 7.7 (2-11) % Eos % (Auto) 0.1 (0-4) % Baso % (Auto) 0.5 (0-2) % Lymph # (Auto) 1.5 (1.2-4.9) X10*3/uL [place]ee # (Auto) 2.2 H (0.1-1.2) X10*3/uL Eos # (Auto) 0.0 (0.0-0.4) X10*3/uL Baso # (Auto) 0.1 (0.0-0.2) X10*3/uL Abs Immat Gran (auto) 0.37 H (0.00-0.03) X10*3/uL Absolute Neuts (auto) 24.4 H (2.0-8.3) x10*3/uL Absolute Nucleated RBC 0.000 (0.0-0.012) X10*3/uL Nucleated RBC % (auto) 0.0 (0.0-0.2) /100WBC Smear Tech's Comments VERIFIED Sodium 139 (135-145) mmol/L Potassium 4.0 (3.3-5.1) mmol/L Chloride 108 (96-108) mmol/L Carbon Dioxide 23 (22-29) mmol/L Anion Gap 12 (12-20) BUN 20 H (9-16) mg/dL Creatinine 1.31 (0.5-1.4) mg/dL Estim Creat Clear Calc 39.8 Estimated GFR 52 Random Glucose 107 (60-115) mg/dL Lactic Acid 1.4 (0.5-2.0) mmol/L Calcium 9.1 D (8.4-10.2) mg/dL Total Bilirubin 1.3 H (0.0-1.0) mg/dL Direct Bilirubin 0.5 (0.0-0.5) mg/dL AST 16 (5-37) U/L ALT 9 (0-40) U/L Alkaline Phosphatase 58 (39-117) U/L Total Protein 6.8 (6.5-8.0) g/dL Albumin 3.6 (3.5-5.0) g/dL Urine Color Dark Yellow Urine Appearance Turbid Urine pH 5.5 (5.0-9.0) Ur Specific Sullivan 1.020 (1.005-1.025) Urine Protein 30 (1+) H (Neg-Trace) mg/dL Urine Glucose (UA) Negative (Negative) mg/dL Urine Ketones Trace (Negative) mg/dL Urine Blood Large (3+) H (Negative) Urine Nitrite Positive H (Negative) Ur Leukocyte Esterase Large (3+) H (Negative) Urine RBC 6-10 H (0-2) /HPF Urine WBC >50 H (0-5) /HPF Ur Squamous Epith Cells 3-5 (0-2) /HPF Urine Bacteria 4+ (None Seen) Hyaline Casts 11-20 (0-2) /LPF Urine Yeast Present Independent Interpretation I performed an independent interpretation of an: CT Scan Radiology Impression Discussion of test interpretation with radiology: I have reviewed the radiologist's reading. Radiologist Impression: Scattered atelectasis and/or scarring. No consolidation or pleural effusion. Median sternotomy changes. Bilateral perinephric stranding. No hydronephrosis or urolithiasis. No acute abnormalities in the remaining solid organs. No large calcified gallstone. Prominent aortic and arterial calcifications. No AAA. No lymphadenopathy. No bowel obstruction, pneumoperitoneum, or pneumatosis. No ascites. No significant mesenteric edema. Diffuse urinary bladder wall thickening with perivesical edema. The prostate is enlarged with AP x transverse dimensions of 4.0 x 6.2 cm. There is urinary bladder base invasion. Colonic diverticulosis. No acute diverticulitis. The appendix is identified. No acute appendicitis. Fat containing left inguinal hernia. No acute or destructive osseous lesion. IMPRESSION: 1. No acute obstructive uropathy or urolithiasis. Nonspecific bilateral perinephric stranding. 2. Prostatomegaly with urinary bladder invasion. Recommend urological consultation if not already performed. 3. Diffuse urinary bladder wall thickening with perivesical edema secondary to outlet obstruction and/or inflammatory/infectious cystitis. 4. No obstructive or acute inflammatory changes in the gastrointestinal tract. Extensive diverticulosis coli. Critical Care Time Critical Care Time Critical Care Time: Yes Total Critical Care Time: 60 Attestation: I have personally provided critical care time. Time includes review of lab data, radiology results, discussion with consultants, and monitoring for potential decompensation. Intervention performed as documented. Discharge Plan Discharge Clinical Impression: Acute UTI, Fever Patient Disposition: Admitted As Inpatient Prescriptions: No Action atorvastatin 80 mg tablet 80 mg PO BEDTIME Qty: 90 3RF diclofenac sodium 1 % gel 2 g topical QD-QID PRN (Reason: PAIN IN RIGHT KNEE) fluticasone propionate 50 mcg/actuation [place],Suspension 2 spray INTRANASAL DAILY Rx Instructions: administer into each nostril omeprazole 20 mg capsule,delayed release(DR/EC) 20 mg PO DAILY lisinopril 2.5 mg tablet 2.5 mg PO DAILY metoprolol succinate 50 mg tablet extended release 24 hr 50 mg PO DAILY ciprofloxacin HCl 500 mg tablet 500 mg PO ONCE Qty: 1 0RF naproxen 500 mg tablet 500 mg PO ONCE Qty: 1 0RF lidocaine HCl 2 % jelly in applicator 10 ml intra-urethral ONCE Qty: 10 0RF finasteride [Proscar] 5 mg tablet 5 mg PO DAILY 90 Days Qty: 90 3RF tamsulosin 0.4 mg capsule 0.4 mg PO DAILY Qty: 90 1RF aspirin [Adult Aspirin Regimen] 81 mg tablet,delayed release (DR/EC) 81 mg PO DAILY Qty: 90 3RF Print Language: [place]alan
[2024-12-01 16:59] LABS: Basophils Absolute Auto 0.1 X10*3/uL (0.0-0.2); Basophils Percent Auto 0.5 % (0-2); Eosinophils Percent Auto 0.1 % (0-4); Hemoglobin 12.8 g/dl (14.0-18.0); Imm Gran Abs Auto 0.37 X10*3/uL (0.00-0.03); Imm Gran Pct Auto 1.3 % (0.0-0.4); Lymphocytes Absolute Auto 1.5 X10*3/uL (1.2-4.9); Lymphocytes Percent Auto 5.3 % (20-40); MANUAL DIFF FLAG SCAN; Mean Corpuscular HGB Conc 33.7 g/dl (31.0-36.0); Mean Corpuscular Hemoglobin 29.6 pg (27.0-33.0); Mean Platelet Volume 11.2 fL (9.4-12.4); Monocytes Absolute Auto 2.2 X10*3/uL (0.1-1.2); Monocytes Percent Auto 7.7 % (2-11); Neutrophils Absolute Auto 24.4 x10*3/uL (2.0-8.3); Neutrophils Percent Auto 85.1 % (45-73); Platelet Count 148 X10*3/uL (160-400); Red Blood Count 4.32 X10*6/uL (4.60-5.80); Red Cell Distribution Width 13.9 % (11.0-16.0); SCAN SMEAR FLAG 1; White Blood Count 28.6 X10*3/uL (4.8-10.8)
[2024-12-01 17:00] LABS: Appearance Urine Turbid; Color Urine Dark Yellow; Glucose Urine UA Negative (Negative); Leukocyte Esterase Urine Large (3+) (Negative); Nitrite Urine Positive (Negative); PH 5.5 (5.0-9.0); UMIC TRIGGER UACC YES; Urine Blood Large (3+) (Negative); Urine Ketones Trace mg/dL (Negative); Urine Protein 30 (1+) mg/dL (Neg-Trace)
[2024-12-01 17:12] LABS: Alanine Aminotransferase 9 U/L (0-40); Albumin Level 3.6 g/dL (3.5-5.0); Alkaline Phosphatase 58 U/L (39-117); Anion Gap 12 (12-20); Aspartate Amino Transferase 16 U/L (5-37); Bilirubin Direct 0.5 mg/dL (0.0-0.5); Bilirubin Total 1.3 mg/dL (0.0-1.0); Blood Urea Nitrogen 20 mg/dL (9-16); Calcium 9.1 mg/dL (8.4-10.2); Carbon Dioxide 23 mmol/L (22-29); Chloride 108 mmol/L (96-108); Creatinine Clr Calc Pharmacy 39.8; Estimated Glomerular Filt Rate 52; Glucose Random 107 mg/dL (60-115); Lactic Acid 1.4 mmol/L (0.5-2.0); Sodium 139 mmol/L (135-145); Total Protein 6.8 g/dL (6.5-8.0)
[2024-12-01 17:21] LABS: Bacteria Urine 4+ (None Seen); UACC Culture Trigger YES; WBC Urine >50 /HPF (0-5)
[2024-12-01] MEDS: 0.9 % Sodium Chloride 1,000 ML 999 ML IVCONT (17:21)
[2024-12-01] MEDS: cefTRIAXone sodium 1 GM VIAL IVPUSH (17:22)
[2024-12-01 17:25] VITALS: BP 103/45; PULSE 73; RESP 20; TEMP 37.2; O2SAT 96
[2024-12-01 17:46] LABS: SLIDE REVIEW VERIFIED
[2024-12-01] MEDS: iohexoL 350 MG/ML 100 ML INFUS..BTL IV (19:06)
[2024-12-01 20:22] VITALS: BP 151/55; PULSE 80; RESP 18; TEMP 38.3; O2SAT 96
--- NOTE | 2024-12-01 20:54 | PM.IMHP ---
History of Present Illness Date of Service: 12/01/24 Chief Complaint: Dysuria This is a 84-year-old male with pertinent history of CAD status post CABG, BPH, hypertension, gastroesophageal reflux disease who presents to the emergency department for evaluation of dysuria. Patient states his symptoms have been ongoing for the last 2 days. He has been having burning and painful urination. Unclear if it has happened before. Also complains of urinary urgency and change in color of urine. He went to his PCP on the day of presentation who sent the patient to the ER. Patient's blood pressure was reportedly low at PCP's office. He denies nausea, vomiting or abdominal discomfort. Admits fevers and chills. No chest pain, palpitations, shortness of breath, changes in bowel habits. Patient is Malawian speaking and history obtained with the help of drafter civil engineering. In the emergency department, patient was found to be septic with leukocytosis and fever. Urine concerning for UTI. Review of Systems Constitutional: Constitutional: Reports fatigue, Reports fever(s) and Reports malaise Cardiovascular: Cardiovascular: Reports no additional cardiovascular complaints Respiratory: Respiratory: Reports no additional respiratory complaints Gastrointestinal: Gastrointestinal: Reports no additional gastrointestinal complaints Genitourinary: Genitourinary: Reports dysuria and Reports urinary urgency Endocrine: Endocrine: Reports fatigue [facility] Medical History Atherosclerotic cardiovascular disease Sleep apnea Urinary retention Hypercholesteremia Hypertension Family History Father No problems noted. Mother No problems noted. Surgical History History of coronary artery bypass graft (~2006) Social History Household Members: Spouse and Children Housing: House Do you presently have visiting nurse or other home services: No Patient Tobacco Use Status: Never used Tobacco Smoked in Last 30 Days: No e-Cigarette/Vaping Use: Never Used Use of substances other than those prescribed or required for medical reasons: No Advance Directives: No Advance Directives Information Provided: No Do you have a plan to hurt others: No Plan service: No Current occupational status: retired Meds Allergies Allergy/AdvReac Type Severity Reaction Status Date / Time No Known Allergies Allergy Verified 12/01/24 15:32 Home Medications ?Medication ?Instructions ?Recorded ?Confirmed ?Last Taken ?Type lisinopril 2.5 mg tablet 2.5 mg PO DAILY 01/22/22 11/07/24 Unknown History omeprazole 20 mg capsule,delayed 20 mg PO DAILY 01/22/22 11/07/24 Unknown History release metoprolol succinate 50 mg 50 mg PO DAILY 05/13/22 11/07/24 Unknown History tablet,extended release 24 hr diclofenac sodium 1 % topical gel 2 g topical QD-QID PRN PAIN IN 01/09/23 11/07/24 Unknown History RIGHT KNEE fluticasone propionate 50 2 spray intranasal DAILY 01/09/23 11/07/24 Unknown History mcg/actuation nasal spray,suspension Physical Exam Vital Signs and Narrative: Vital Signs: Last Vital Signs Temp 101 F H 12/01/24 20:22 Pulse 80 12/01/24 20:22 Resp 18 12/01/24 20:22 BP 151/55 H 12/01/24 20:22 Pulse Ox 96 12/01/24 20:22 O2 Del Method Room Air 12/01/24 20:22 BMI result Body Mass Index 26.4 Middle-aged male lying in bed in no distress Neck supple, no JVD Regular rate and rhythm, S1-S2 heard Regular breath sounds bilaterally, no wheezing or crackles appreciated Abdomen soft nontender, no guarding, no rigidity Patient is awake, alert and oriented to self, place, time and person ; no focal motor deficit Psych: Normal mood No pedal edema Results Labs 12/01/24 16:48 12/01/24 16:48 Labs: Laboratory Results - last 24 hr 12/01/24 16:48 MCV 88.0 MCH 29.6 MCHC 33.7 RDW 13.9 Plt Count 148 L D MPV 11.2 Immature Gran % (Auto) 1.3 H Neut % (Auto) 85.1 H Lymph % (Auto) 5.3 L [place] % (Auto) 7.7 Eos % (Auto) 0.1 Baso % (Auto) 0.5 Lymph # (Auto) 1.5 [place] # (Auto) 2.2 H Eos # (Auto) 0.0 Baso # (Auto) 0.1 Abs Immat Gran (auto) 0.37 H Absolute Neuts (auto) 24.4 H Absolute Nucleated RBC 0.000 Nucleated RBC % (auto) 0.0 Smear Tech's Comments VERIFIED Anion Gap 12 Estim Creat Clear Calc 39.8 Estimated GFR 52 Random Glucose 107 Lactic Acid 1.4 Calcium 9.1 D Total Bilirubin 1.3 H Direct Bilirubin 0.5 AST 16 ALT 9 Alkaline Phosphatase 58 Total Protein 6.8 Albumin 3.6 Urine Color Dark Yellow Urine Appearance Turbid Urine pH 5.5 Ur Specific [place] 1.020 Urine Protein 30 (1+) H Urine Glucose (UA) Negative Urine Ketones Trace Urine Blood Large (3+) H Urine Nitrite Positive H Ur Leukocyte Esterase Large (3+) H Urine RBC 6-10 H Urine WBC >50 H Ur Squamous Epith Cells 3-5 Urine Bacteria 4+ Hyaline Casts 11-20 Urine Yeast Present Assessment and Plan (1) Acute UTI: Status: Acute Plan This is a 84-year-old male with pertinent history of CAD status post CABG, BPH, hypertension, gastroesophageal reflux disease who presents to the emergency department for evaluation of dysuria. #. Sepsis due to acute UTI: Resuscitated with IV crystalloids. Initiating empiric IV Levaquin. Lactic acid and blood culture obtained. Follow urine culture. Imaging with prostatomegaly with urinary bladder invasion. Consulting Urology #. CAD status post CABG: Continue aspirin and high-intensity statin. On beta-lisseth #. BPH: On finasteride and Flomax #. Hypertension: Continue home antihypertensives #. Gastroesophageal reflux disease: On PPI Med rec pending DVT prophylaxis: Lovenox Full code Admit as inpatient and will require two night minimum hospital stay for IV antibiotics (as above), which is not possible in a lesser acute setting. Quality Stroke Does the patient have a stroke diagnosis?: No VTE Prior VTE?: No VTE Risk Level:: Medical - moderate - high VTE Device Contraindication: Treatment Not Indicated VTE Drug Contraindication: N/A - Med Ordered
[2024-12-01] MEDS: Acetaminophen 325 MG TABLET 975 MG PO (21:55)
[2024-12-01] MEDS: Enoxaparin Sodium 40 MG/0.4 ML SYRINGE SUBCUT (21:55)
[2024-12-01] MEDS: levoFLOXacin/D5W 750 MG/150 ML PIGGYBACK 100 MG IV (21:57)
--- NOTE | 2024-12-01 22:52 | PHA.MEDREC ---
Addendum entered by Paris Willett RPh 12/01/24 22:55: MED REC REVIEWED BY RANJEET Original Note: Pharmacy Consult ? Medication Reconciliation Pharmacy has completed the medication reconciliation. spoke with patient utilizing director of publications and he was able to confirm his medications. Patient confirmed he is not taking the Ketorolac eye drops anymore due to finding no relief after the surgery. He confirmed he took his medications this morning.
[2024-12-01 23:41] VITALS: BP 112/49; PULSE 91; RESP 20; TEMP 37.3; O2SAT 93
[2024-12-02 04:46] LABS: Basophils Absolute Auto 0.1 X10*3/uL (0.0-0.2); Basophils Percent Auto 0.6 % (0-2); Eosinophils Absolute Auto 0.1 X10*3/uL (0.0-0.4); Eosinophils Percent Auto 0.4 % (0-4); Hematocrit 36.2 % (42.0-52.0); Imm Gran Abs Auto 0.21 X10*3/uL (0.00-0.03); Imm Gran Pct Auto 0.8 % (0.0-0.4); Lymphocytes Absolute Auto 1.7 X10*3/uL (1.2-4.9); Lymphocytes Percent Auto 6.7 % (20-40); MANUAL DIFF FLAG SCAN; Mean Corpuscular HGB Conc 33.1 g/dl (31.0-36.0); Mean Corpuscular Hemoglobin 29.4 pg (27.0-33.0); Mean Corpuscular Volume 88.7 fL (80.0-98.0); Mean Platelet Volume 11.5 fL (9.4-12.4); Monocytes Absolute Auto 1.9 X10*3/uL (0.1-1.2); Monocytes Percent Auto 7.3 % (2-11); Neutrophils Absolute Auto 21.4 x10*3/uL (2.0-8.3); Neutrophils Percent Auto 84.2 % (45-73); Platelet Count 145 X10*3/uL (160-400); Red Blood Count 4.08 X10*6/uL (4.60-5.80); Red Cell Distribution Width 14.1 % (11.0-16.0); SCAN SMEAR FLAG 1; White Blood Count 25.4 X10*3/uL (4.8-10.8)
[2024-12-02 05:00] LABS: Anion Gap 11 (12-20); Blood Urea Nitrogen 17 mg/dL (9-16); Calcium 8.3 mg/dL (8.4-10.2); Carbon Dioxide 21 mmol/L (22-29); Chloride 111 mmol/L (96-108); Creatinine Clr Calc Pharmacy 49.2; Estimated Glomerular Filt Rate > 60; Glucose Random 95 mg/dL (60-115); Potassium 3.7 mmol/L (3.3-5.1); Sodium 139 mmol/L (135-145)
[2024-12-02 05:05] LABS: SLIDE REVIEW VERIFIED
[2024-12-02 05:15] VITALS: BP 117/53; PULSE 76; RESP 12; TEMP 37; O2SAT 96
--- NOTE | 2024-12-02 07:29 | P.PNIM_ITS ---
Subjective Subjective Date of Service: 12/02/24 Interval History: f/u on sepsis d/t uti he's feeling better, wbc cuca but still very high, no fever Physical Exam 2 Vital Signs: Vital Signs: Last Vital Signs Temp 98.6 F 12/02/24 05:15 Pulse 76 12/02/24 05:15 Resp 12 12/02/24 05:15 BP 117/53 L 12/02/24 05:15 Pulse Ox 96 12/02/24 05:15 O2 Del Method Room Air 12/02/24 05:15 BMI result Body Mass Index 26.4 General: AO X 3, no acute distress Resp: CTA bilateral CVS: S1,S2,RRR GI: +BS, NT, no distention Skin: No rash Neuro: motor grossly intact Psych: appropriate affect Objective Data Active Medications Acetaminophen (Acetaminophen 325 Mg Tablet) 650 mg PO Q6H PRN PRN Reason: Pain, Mild 1-3,fever,headache Calcium Carbonate (Calcium Carbonate 750 Mg Tab.Chew) 750 mg PO Q4H PRN PRN Reason: Heartburn Enoxaparin Sodium (Enoxaparin Sodium 40 Mg/0.4 Ml Syringe) 40 mg SUBCUT Q24H [facility] Last Admin: 12/01/24 21:55 Dose: 40 mg Documented By: JULIO Levofloxacin (Levaquin) 750 mg in 150 mls @ 100 mls/hr IV Q24H [facility] Last Admin: 12/01/24 21:57 Dose: 100 mls/hr Documented By: JULIO Magnesium Hydroxide (Milk Of Magnesia 30 Ml Oral.Susp) 30 ml PO DAILY PRN PRN Reason: Constipation Melatonin (Melatonin 3 Mg Tablet) 6 mg PO BEDTIME PRN PRN Reason: Insomnia Ondansetron HCl (Ondansetron Hcl 4 Mg/2 Ml Vial) 4 mg IVPUSH Q8H PRN PRN Reason: Nausea and Vomiting Sodium Chloride (0.9 % Sodium Chloride Flush 3 Ml Syringe) 3 ml IVFLUSH QSHIFT [facility] Labs 12/02/24 04:13 12/02/24 04:13 Labs: Laboratory Results - last 24 hr 12/01/24 12/02/24 16:48 04:13 MCV 88.0 88.7 MCH 29.6 29.4 MCHC 33.7 33.1 RDW 13.9 14.1 Plt Count 148 L D 145 L MPV 11.2 11.5 Immature Gran % (Auto) 1.3 H 0.8 H Neut % (Auto) 85.1 H 84.2 H Lymph % (Auto) 5.3 L 6.7 L [place] % (Auto) 7.7 7.3 Eos % (Auto) 0.1 0.4 Baso % (Auto) 0.5 0.6 Lymph # (Auto) 1.5 1.7 [place] # (Auto) 2.2 H 1.9 H Eos # (Auto) 0.0 0.1 Baso # (Auto) 0.1 0.1 Abs Immat Gran (auto) 0.37 H 0.21 H Absolute Neuts (auto) 24.4 H 21.4 H Absolute Nucleated RBC 0.000 0.000 Nucleated RBC % (auto) 0.0 0.0 Smear Tech's Comments VERIFIED VERIFIED Anion Gap 12 11 L Estim Creat Clear Calc 39.8 49.2 Estimated GFR 52 > 60 Random Glucose 107 95 Lactic Acid 1.4 Calcium 9.1 D 8.3 L D Total Bilirubin 1.3 H Direct Bilirubin 0.5 AST 16 ALT 9 Alkaline Phosphatase 58 Total Protein 6.8 Albumin 3.6 Urine Color Dark Yellow Urine Appearance Turbid Urine pH 5.5 Ur Specific [place] 1.020 Urine Protein 30 (1+) H Urine Glucose (UA) Negative Urine Ketones Trace Urine Blood Large (3+) H Urine Nitrite Positive H Ur Leukocyte Esterase Large (3+) H Urine RBC 6-10 H Urine WBC >50 H Ur Squamous Epith Cells 3-5 Urine Bacteria 4+ Hyaline Casts 11-20 Urine Yeast Present Assessment and Plan (1) Acute UTI: Status: Acute (2) Sepsis: Status: Acute Plan 84-year-old male with pertinent history of CAD status post CABG, BPH, hypertension, gastroesophageal reflux disease who presents to the emergency department for evaluation of dysuria. Sepsis due to acute UTI, wbc down but still high IV levaquin started 12/01, continue follow cultures Urology consult h prostatomegaly with urinary bladder invasion. CAD status post CABG Continue ASA, BB and statin BPH continue finasteride and Flomax HTN continue metoprolol, hold lisinopril GERD PPI Med rec pending DVT prophylaxis: Lovenox Full code need for inpt: IV abx for sepsis POA Quality Stroke Does the patient have a stroke diagnosis?: No VTE Prior VTE?: No VTE Risk Level:: Medical - moderate - high VTE Device Contraindication: Treatment Not Indicated VTE Drug Contraindication: N/A - Med Ordered
[2024-12-02 08:22] VITALS: BP 130/50; PULSE 83; RESP 19; TEMP 37; O2SAT 96
[2024-12-02 08:41] VITALS: BP 139/63; PULSE 92; RESP 18; TEMP 37.3; O2SAT 95
[2024-12-02 08:49] VITALS: BMI 25.5
[2024-12-02] MEDS: Tamsulosin HCL 0.4 MG CAPSULE PO (09:10)
[2024-12-02] MEDS: 0.9 % Sodium Chloride Flush 3 ML SYRINGE IVFLUSH ×3 (09:10→20:23)
[2024-12-02] MEDS: Metoprolol Succinate ER 50 MG TAB.ER.24H PO (09:10)
[2024-12-02] MEDS: Finasteride 5 MG TABLET PO (09:10)
[2024-12-02] MEDS: Aspirin Enteric Coated 81 MG TABLET.DR PO (09:10)
--- NOTE | 2024-12-02 12:41 | MHC.CM.PN ---
CM MET WITH PT WITH A METAL CONTROL WORKER PT LIVES WITH HIS AND CHILDREN AND IS INDEPENDENT WITH CARE HE HAS NO DME AND NO SERVICES COPY OF HCP REQUESTED, HE REPORTS HIS SON IS HIS AGENT PCP AT [facility] DCP: HOME NO SERVICES VIA PRIVATE TRANSPORT
--- NOTE | 2024-12-02 14:39 | PC.NURSE ---
educational sign language interpreter Leola assisted with admission
[2024-12-02 15:17] VITALS: BP 142/66; PULSE 64; RESP 16; TEMP 37.8; O2SAT 96
[2024-12-02] MEDS: Acetaminophen 325 MG TABLET 650 MG PO (15:49)
[2024-12-02 17:08] VITALS: TEMP 36.8
[2024-12-02 19:23] VITALS: BP 129/60; PULSE 60; RESP 18; TEMP 36.6; O2SAT 95
[2024-12-02] MEDS: Enoxaparin Sodium 40 MG/0.4 ML SYRINGE SUBCUT (20:23)
[2024-12-02] MEDS: levoFLOXacin/D5W 750 MG/150 ML PIGGYBACK 100 MG IV (20:23)
[2024-12-02] MEDS: Atorvastatin Calcium 80 MG TABLET PO (20:23)
[2024-12-03 03:52] VITALS: BP 137/62; PULSE 62; RESP 16; TEMP 36.7; O2SAT 93
[2024-12-03 07:52] VITALS: BP 158/71; PULSE 50; RESP 16; TEMP 36.8; O2SAT 95
[2024-12-03] MEDS: Tamsulosin HCL 0.4 MG CAPSULE PO (08:21)
[2024-12-03] MEDS: Aspirin Enteric Coated 81 MG TABLET.DR PO (08:21)
[2024-12-03] MEDS: Finasteride 5 MG TABLET PO (08:22)
[2024-12-03 08:24] VITALS: PULSE 63
[2024-12-03] MEDS: Metoprolol Succinate ER 50 MG TAB.ER.24H PO (08:24)
[2024-12-03] MEDS: 0.9 % Sodium Chloride Flush 3 ML SYRINGE IVFLUSH (08:27)
[2024-12-03 08:35] LABS: Hematocrit 38.1 % (42.0-52.0); Hemoglobin 12.5 g/dl (14.0-18.0); Mean Corpuscular HGB Conc 32.8 g/dl (31.0-36.0); Mean Corpuscular Hemoglobin 29.3 pg (27.0-33.0); Mean Corpuscular Volume 89.2 fL (80.0-98.0); Mean Platelet Volume 11.6 fL (9.4-12.4); Platelet Count 177 X10*3/uL (160-400); Red Blood Count 4.27 X10*6/uL (4.60-5.80); White Blood Count 18.3 X10*3/uL (4.8-10.8)
[2024-12-03 08:50] LABS: Anion Gap 11 (12-20); Blood Urea Nitrogen 12 mg/dL (9-16); Calcium 8.8 mg/dL (8.4-10.2); Carbon Dioxide 24 mmol/L (22-29); Chloride 110 mmol/L (96-108); Estimated Glomerular Filt Rate > 60; Glucose Random 97 mg/dL (60-115); Potassium 3.7 mmol/L (3.3-5.1); Sodium 141 mmol/L (135-145)
--- NOTE | 2024-12-03 09:39 | P.DS_ITS ---
DS: Providers Provider Date of Service: 12/03/24 Date of admission: 12/01/24 20:53 Date of discharge: 12/03/24 Primary care physician: [facility] Consults: 12/01/24 21:03 Consult to Urology Routine Consulting Provider: [facility] Reason for consultation: Prostatomegaly with urinary bladder invasion DS: Diagnosis Discharge Diagnosis (1) Acute UTI: Status: Acute (2) Sepsis: Status: Acute DS: Summary Hospital Course Hospital Course: admission hpi Chief Complaint: Dysuria This is a 84-year-old male with pertinent history of CAD status post CABG, BPH, hypertension, gastroesophageal reflux disease who presents to the emergency department for evaluation of dysuria. Patient states his symptoms have been ongoing for the last 2 days. He has been having burning and painful urination. Unclear if it has happened before. Also complains of urinary urgency and change in color of urine. He went to his PCP on the day of presentation who sent the patient to the ER. Patient's blood pressure was reportedly low at PCP's office. He denies nausea, vomiting or abdominal discomfort. Admits fevers and chills. No chest pain, palpitations, shortness of breath, changes in bowel habits. Patient is Macanese speaking and history obtained with the help of delivery engineer. In the emergency department, patient was found to be septic with leukocytosis and fever. Urine concerning for UTI. Hospital course: Patient presented with dysuria, fever 101, and found to have urinary tract infection associated with marked leukocytosis. He was admitted for sepsis due to UTI and treated with IV levaquin, cultures growin E.coli intermediate to Cipro and sensitive to Ceftriaxone and such, changed to Ceftriaxone and will discharge with oral Ceftin 500 mg twice daily for 7 more days, total of 10. WBC are trending down and fever resolved, along with dysuria. Time Attestation Discharge Coordination Time (in mins): 40 Quality: Safe Use of Opioids Does Pt have an Active Cancer Diagnosis on the Problem List?: No Quality: Stroke Does the patient have a stroke diagnosis?: No Physical Exam Vital Signs: Vital Signs: Last Vital Signs Temp 98.2 F 12/03/24 07:52 Pulse 63 12/03/24 08:24 Resp 16 12/03/24 07:52 BP 158/71 H 12/03/24 07:52 Pulse Ox 95 12/03/24 07:52 O2 Del Method Room Air 12/03/24 07:52 BMI result Body Mass Index 25.5 DS: Data Data Completed and Pending Labs on day of discharge: Laboratory Results - last 24 hr 12/03/24 07:34 WBC 18.3 H RBC 4.27 L Hgb 12.5 L Hct 38.1 L MCV 89.2 MCH 29.3 MCHC 32.8 RDW 14.0 Plt Count 177 MPV 11.6 Absolute Nucleated RBC 0.000 Nucleated RBC % (auto) 0.0 Sodium 141 Potassium 3.7 Chloride 110 H Carbon Dioxide 24 Anion Gap 11 L BUN 12 Creatinine 0.90 Estim Creat Clear Calc 58.0 Estimated GFR > 60 Random Glucose 97 Calcium 8.8 D Preliminary micro results at discharge 12/01/24 16:48 Blood Culture - Preliminary Blood - Venous No growth after 24 hours. 12/01/24 16:48 Blood Culture - Preliminary Blood - Venous No growth after 24 hours. Discharge Plan Discharge Anticipated Discharge Date/Time: 12/03/24 09:39 Patient Disposition: Home, Self-Care Discharge Diagnosis: Sepsis, UTI. Referrals: [facility] [Primary Care Provider] - 1 Week Discharge Medications: New cefuroxime axetil 500 mg tablet 500 mg PO BID 7 Days Qty: 14 0RF Rx Instructions: next dose 12/04/24 Continued atorvastatin 80 mg tablet 80 mg PO BEDTIME Qty: 90 3RF diclofenac sodium 1 % gel 2 g topical QD-QID PRN (Reason: PAIN IN RIGHT KNEE) fluticasone propionate 50 mcg/actuation [place],Suspension 2 spray INTRANASAL DAILY PRN (Reason: Congestion) Rx Instructions: administer into each nostril naproxen 500 mg Tablet 500 mg PO DAILY PRN (Reason: Pain) omeprazole 20 mg capsule,delayed release(DR/EC) 20 mg PO DAILY@0630 PRN (Reason: Acid Reflux) lisinopril 2.5 mg tablet 2.5 mg PO DAILY metoprolol succinate 50 mg tablet extended release 24 hr 50 mg PO DAILY finasteride [Proscar] 5 mg tablet 5 mg PO DAILY 90 Days Qty: 90 3RF tamsulosin 0.4 mg capsule 0.4 mg PO DAILY Qty: 90 1RF aspirin [Adult Aspirin Regimen] 81 mg tablet,delayed release (DR/EC) 81 mg PO DAILY Qty: 90 3RF Discharge Orders: Discharge Order (Routine); Ordered 12/03/24 Ordered By: Fish Lazar Diet: Advance to usual diet Activity on Discharge: As tolerated Stand Alone Forms: Patient Portal Discharge page Print Language: Macanese Care Plan Goals: Recovery from sepsis and [facility] Concerns: Sepsis UTI Leukocytosis Plan of Treatment: Take Ceftin as recommended for UTI and sepsis Follow-up with your doctor within a week. Assessment: See above
--- NOTE | 2024-12-03 10:07 | MHC.CM.PN ---
pt dcd home self care
[2024-12-03] MEDS: cefTRIAXone sodium 1 GM VIAL IVPUSH (10:26)
[2024-12-03 11:54] VITALS: BP 123/58; PULSE 75; RESP 16; TEMP 36.3; O2SAT 97
== END 2024-12-03 12:16 | disposition home or self-care (01) | DRG 720 ==
LOC: HO.ED 20:50 → HO.EDOVER 20:56 → HO.S3 12-02 07:37
PROVIDERS: Admitting Provider Student in an Organized Health Care Education/Training Program; Emergency Provider Emergency Medicine; Visit Provider Internal Medicine
DX: A41.9 Sepsis, unspecified organism (principal); I10 Essential (primary) hypertension; N39.0 Urinary tract infection, site not specified; B96.20 Unspecified Escherichia coli [E. coli] as the cause of diseases classified elsewhere; N40.0 Benign prostatic hyperplasia without lower urinary tract symptoms; I25.10 Atherosclerotic heart disease of native coronary artery without angina pectoris; K21.9 Gastro-esophageal reflux disease without esophagitis; Z95.1 Presence of aortocoronary bypass graft; Z79.51 Long term (current) use of inhaled steroids; Z79.82 Long term (current) use of aspirin; Z79.899 Other long term (current) drug therapy
CPT/HCPCS: 36415; 74177; 80048; 80076; 81001; 83605; 85025; 85027; 87040; 87086; 87088; 87186; 99285; J0696; J1650; J1956; Q9967

== ENCOUNTER → 2024-12-01 18:09 | Outpatient (BNV) | payer MEDICAID, SELFPAY | PROVIDERS: Admitting Provider Student in an Organized Health Care Education/Training Program; Emergency Provider Emergency Medicine; Visit Provider Radiology Diagnostic Radiology | DX: R10.30 Lower abdominal pain, unspecified (principal) | CPT/HCPCS: 74177 ==

== ENCOUNTER → 2024-12-01 20:53 | Outpatient (BNV) | payer MEDICAID, SELFPAY | PROVIDERS: Admitting Provider Student in an Organized Health Care Education/Training Program; Emergency Provider Emergency Medicine; Visit Provider Student in an Organized Health Care Education/Training Program | DX: N39.0 Urinary tract infection, site not specified (principal) | CPT/HCPCS: 99222 ==

== ENCOUNTER 2025-02-20 11:56 | Outpatient (REF) | payer MEDICAID, SELFPAY ==
--- NOTE | ~2025-02-20 | US_ITS ---
EXAMINATION: US RETROPERITONEUM HISTORY: N40.1 - Benign prostatic hyperplasia with lower urinary tract symptoms TECHNIQUE: Real-time grayscale ultrasound imaging of the kidneys was performed and images were reviewed. COMPARISON: Comparison is made with the prior examination dated 01/05/2023. FINDINGS: Right kidney: The right kidney measures 11.7 x 5.1 x 4.5 cm. Renal parenchymal echotexture and thickness are normal. There are no masses. No renal calculi are identified. There is mild fullness of the renal pelvis without hydronephrosis. Left Kidney: The left kidney measures 11.6 x 3.9 x 4.9 cm. Renal parenchymal echotexture and thickness are normal. There are no masses. No renal calculi are identified. There is mild fullness of the renal pelvis without hydronephrosis. The urinary bladder is unremarkable. Bilateral ureteral jets are identified. Again seen is enlargement of the prostate with a probable enlarged median lobe. The prostate measures 4.7 x 1.2 x 4.2 cm. Before voiding, the urinary bladder measured 8.3 x 6.3 x 5.7 cm, for an estimated volume of 156 mL. After voiding, the urinary bladder measured 6.4 x 6.0 x 5.3 cm, for an estimated volume of 107 mL. US/US retroperitoneal comp IMPRESSION: 1. Mild bilateral renal pelvic fullness, of uncertain significance. This may be due to an enlarged prostate and mild bladder outlet obstruction. No definite hydronephrosis. 2. Enlargement of the prostate with a probable enlarged median lobe as seen previously. 3. Post void bladder residual of 107 mL. Electronically signed by: Franc Ferrell MD 02/20/2025 01:08 PM EDT
--- OUTSIDE RECORDS SUMMARY | 2025-02-20 13:36 | XMS_ITS | Encounter Summary ---
Author Organization [employer] [facility] Address [address] [place] [address] Care Team Providers Care Cruise Director Name Role Phone Rashmi Finnegan Primary Care Provider [phone] Encounter Details Date Type Department Care Team (Late st Contact Info) Description 10/06/2022 Orders Only [facility] [address] [place], [place] [id number] Gisell Campos LPN Social History Tobacco Use [...] Care Team (Late st Contact Info) Description 03/24/2025 11:00 AM EDT Office Visit [facility] [address] [place] [address] Rashmi Finnegan ANP [address] [place] [address] documented as of this encounter Visit Diagnoses Not on filedocumented in this encounter Care Teams Cruise Director Relationship Specialty Start Date End Date Rashmi Finnegan ANP [address] [place] [address] PCP - General Family Medicine 01/25/21 documented as of this encounter
--- OUTSIDE RECORDS SUMMARY | 2025-02-20 13:36 | XMS_ITS | Clinical Summary ---
Author Organization [employer] Address [address] [facility] 7t [place] [address] Care Team Providers Care Dental Manager Name Role Phone Murray Jas VERMA Primary Care Provider [phone] Allergies No known active allergies Medications atorvastatin [...] Pt to be transported via ambulance [place] [facility] for IVF, IV Abx and likely CT of abdomen to rule out pyelonephritis Pt agreeable with plan Hypotension 12/01/2024 Assessment & Plan (12/01/2024 2:37 PM EST): Likely due to urosepsis To be transported via ambulance [place] [facility] [place]F and IV Abx as well as potential admission overnight Case discussed with [facility] Pre-op examination 08/29/2024 Assessment & Plan [...] Encounters Date Type Department Care Team Description 02/20/2025 Orders Only [facility] External Provider, [facility] 12/20/2024 Telephone [facility] MEDIC[facility] [address] [place] [address] Jas Murray ANP March recall 12/07/2024 9:00 AM EST Office Visit [facility] OPTOMETRY [address] [place] [address] Cayden, Shona, OD Presbyopia of both eyes (Primary Dx) 12/07/2024 Travel 12/01/2024 2:30 PM EST Office Visit [facility] MEDIC[facility] [address] [place] [address] Jareth Read MD Acute cystitis with hematuria (Primary Dx); Hypotension, unspecified hypotension type; UTI symptoms 12/01/2024 Travel 12/01/2024 Telephone [facility] [address] [place] [address] Jas Murray ANP Nurse Triage 11/24/2024 11:00 AM EST Office Visit [facility] [address] [place] [address] Jsa Murray ANP 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 (Primary Dx); Essential hypertension; Dyslipidemia 11/24/2024 Travel 11/23/2024 Telephone [facility] [address] [place] [address] Kacy Campoverde [place] chart prep from Last 3 Months Immunizations Name Administration [...] the past 12 months, has t he weipass, gas, oil or water company threatened to [...] Description 03/24/2025 11:00 AM EDT Office Visit [facility] [address] [place] [address] Jas Murray ANP [address] [place] [address] Health Maintenance Due Date Last Done Comments [...] 12/01/2024 Dental X-Ray: Full Mouth 03/08/2027 03/07/2024, 0 03/2022 Lipid Panel 08/25/2029 08/25/2024, 04/23/2021 DTaP/Tdap/Td [...] Procedure Name Priority Date/Time Associated Diagnosis Comments US RETROPERITONEAL COMPLETE Routine 02/20/2025 12:07 PM EDT POCT URINALYSIS DIPSTICK Routine 12/01/2024 2:27 PM EST UTI symptoms HEMOGLOBIN A1C Routine 08/25/2024 11:19 AM EST [...] Recently Relevant to Health Maintenance Results * US Retroperitoneal Complete (02/20/2025 12:07 PM EDT) Anatomical Region Laterality Modality Ultrasound 02/20/2025 12:0 7 PM EDT Narrative 02/20/2025 1:11 PM EDT ? [facility] ?[address] ?[place] [address] ? Ultrasound Report ? Signed ? Patient: Evan Bass ?MR#: [id number] ?? [id number] ? : 1940 ?Acct:[id number] ? Age/Sex: 84 / M ?ADM Date: /05/25 ? Loc: HO.US ? Attending Dr: Latoya Estrada MD ? Ordering Physician: Latoya Estrada MD ?? Date of Service: 05/05/25 ?? Procedure(s): US retroperitoneal comp ?? Accession Number(s): [id number] ? cc: Latoya Estrada MD; JAS MURRAY NP ? EXAMINATION: ??US RETROPERITONEUM ? HISTORY: N40.1 - Benign prostatic hyperplasia with lower urinary tract ?? symptoms ? TECHNIQUE: Real-time grayscale ultrasound imaging of the kidneys was ?? performed and images were reviewed. ? COMPARISON: Comparison is made with the prior examination dated ?? 01/05/2023. ? FINDINGS: ? Right kidney: ??The right kidney measures 11.7 x 5.1 x 4.5 cm. ??Renal ?? parenchymal echotexture and thickness are normal. ??There are no masses. ?? No renal calculi are identified. There is mild fullness of the renal ?? pelvis without hydronephrosis. ? Left Kidney: ??The left kidney measures 11.6 x 3.9 x 4.9 cm. ??Renal ?? parenchymal echotexture and thickness are normal. ??There are no masses. ?? No renal calculi are identified. There is mild fullness of the renal ?? pelvis without hydronephrosis. ? The urinary bladder is unremarkable. Bilateral ureteral jets are ?? identified. Again seen is enlargement of the prostate with a probable ?? enlarged median lobe. The prostate measures 4.7 x 1.2 x 4.2 cm. Before ?? voiding, the urinary bladder measured 8.3 x 6.3 x 5.7 cm, for an ?? estimated volume of 156 mL. After voiding, the urinary bladder measured ?? 6.4 x 6.0 x 5.3 cm, for an estimated volume of 107 mL. ? US/ retroperitoneal comp ?? IMPRESSION: ? 1. Mild bilateral renal pelvic fullness, of uncertain significance. ?? This may be due to an enlarged prostate and mild bladder outlet ?? obstruction. No definite hydronephrosis. ? 2. Enlargement of the prostate with a probable enlarged median lobe as ?? seen previously. ? 3. Post void bladder residual of 107 mL. ? Electronically signed by: ??Franc Ferrell MD ??02/20/2025 01:08 PM EDT ?? RP ? Dictated By: ?Franc Ferrell MD ? Signed By: ?<Electronically signed by Franc Ferrell MD in OV> ?02/20/25 1308 ? DD/ 1207 ? TD/TT: 02/20/25 1225 ? Bit Sharpener Operator: ? Procedure Note Taurus Alexis - 02/20/[address] [address] Ultrasound Report Signed Patient: Eula Bass#: [id number] : 9Acct:[id number] Age/Sex: 84 / MADM Date: 02/20/25 Loc: HO.US Attending Dr: Latoya Estrada MD Ordering Physician: Latoya Estrada MD Date of Service: 02/20/25 Procedure(s): US retroperitoneal comp Accession Number(s): [id number] cc: Latoya Estrada MD; JAS MURRAY NP EXAMINATION: US RETROPERITONEUM HISTORY: N40.1 - Benign prostatic hyperplasia with lower urinary tract symptoms TECHNIQUE: Real-time grayscale ultrasound imaging of the kidneys was performed and images were reviewed. COMPARISON: Comparison is made with the prior examination dated 01/05/2023. FINDINGS: Right kidney: The right kidney measures 11.7 x 5.1 x 4.5 cm. Renal parenchymal echotexture and thickness are normal. There are no masses. No renal calculi are identified. There is mild fullness of the renal pelvis without hydronephrosis. Left Kidney: The left kidney measures 11.6 x 3.9 x 4.9 cm. Renal parenchymal echotexture and thickness are normal. There are no masses. No renal calculi are identified. There is mild fullness of the renal pelvis without hydronephrosis. The urinary bladder is unremarkable. Bilateral ureteral jets are identified. Again seen is enlargement of the prostate with a probable enlarged median lobe. The prostate measures 4.7 x 1.2 x 4.2 cm. Before voiding, the urinary bladder measured 8.3 x 6.3 x 5.7 cm, for an estimated volume of 156 mL. After voiding, the urinary bladder measured 6.4 x 6.0 x 5.3 cm, for an estimated volume of 107 mL. US/US retroperitoneal comp IMPRESSION: 1. Mild bilateral renal pelvic fullness, of uncertain significance. This may be due to an enlarged prostate and mild bladder outlet obstruction. No definite hydronephrosis. 2. Enlargement of the prostate with a probable enlarged median lobe as seen previously. 3. Post void bladder residual of 107 mL. Electronically signed by: Franc Ferrell MD 02/20/2025 01:08 PM EDT RP Dictated By: Franc Ferrell MD Signed By: <Electronically signed by Franc Ferrell MD in OV> 02/20/25 1308 DD/ 1207 TD/TT: 02/20/25 1225 Bit Sharpener Operator: [facility] External Provider IMG US PROCEDURES Final Result * (ABNORMAL) POCT Urinalysis (12/01/2024 2:27 PM [...] Expiration Date Urine 12/01/2024 2:27 PM EST Result [facility] Jareth Roe MD POINT OF CARE TEST EN TER/EDIT ORDERABLES Final Result * Hemoglobin A1c (08/25/2024 11:19 AM EST) Hemoglobin A1c 5.7 <6.0 % [facility] Comment:Hemoglobin A1C Refer ence Range Adults: 4.8 - 6.0 % Non diabetic: < 6.0 % Goal: < 7.0 %Additional Action Suggested: > 8.0 %Note: Hemoglobin A1c results are invalid for patients with abnormal amounts of HbF. Blood transfusions may impact the HbA1c concentration in the patient sample. Estimated Average Glucose 117 mg/dL [facility] Comment:eAG = Estimated ave rage glucose which is %A1C expressed asaverage glucose, using the formula of the P4H-EfeexfrLvykcji Glucose study (ADAG), Diabetes Care, Vol.31,#8,2007 Blood Venous blood specimen / Unknown 08/25/2024 11:19 AM EST 08/25/2024 1:14 PM EST Jas Murray ANP LAB BLOOD ORDERABLES Final Resul t Performing Organization Address [facility] Co de Phone Number [facility] [address] [place] [phone] * (ABNORMAL) Lipid Panel, Standard (08/25/2024 11:19 AM EST) Triglycerides 91 <150 mg/dL [facility] Comment:Desirable Triglyceri de: less than 150 mg/dLBorderline High Triglyceride 150-199 mg/dLHigh Triglyceride: 200-499 mg/dLVery High Triglyceride: greater than or equal to 5OO mg/dL Cholesterol 182 <200 mg/dL [facility] Comment:Desirable Cholestero l: less than 200 mg/dLBorderline High Cholesterol: 200-239 mg/dLHigh Cholesterol: greater than 239 mg/dL LDL Cholesterol Calculated 113(H) <100 mg/dL [facility] Comment:Desirable LDL: less than 100 mg/dLNear Optimal/Above Optimal LDL: 110- 129 mg/dLBorderline High LDL: 130-159 mg/dLHigh LDL: 160-189 mg/dLVery High LDL: greater than or equal to 190 mg/dL HDL Cholesterol 51 >40 mg/dL [facility] Comment:Desirable HDL: great er than 40 mg/dL Note: This HDL assay may give artificially low results in patients with liver disease. Blood Venous blood specimen / Unknown 08/25/2024 11:19 AM EST 08/25/2024 1:14 PM EST Jas Murray ANP LAB BLOOD ORDERABLES Final Resul t Performing Organization Address [facility] Co de Phone Number [facility] [address] [place] [phone] from Last 3 Months or Most Recently Relevant to Health Maintenance Insurance [facility] [address] STANDARD [address] [place] [facility]-[facility] [address] MEDICAID STAND ADULT * Guarantor: Evan Bass Account Type Relation to Patient Date of Phone Billing Address Personal/Family Self [address] [place] Care Teams Dental Manager Relationship Specialty Start Date End Date Jas Murray ANP [address] [place] [address] PCP - General Family Medicine 01/25/21
--- OUTSIDE RECORDS SUMMARY | 2025-02-20 13:36 | XMS_ITS | Encounter Summary ---
Author Organization [employer] [facility] Address [address] [facility] 7t [place] [address] Care Team Providers Care Auto Painter Name Role Phone Rashmi Finnegan Primary Care Provider [phone] Encounter Details Date Type Department Care Team (Latest Contact Info) Description 05/07/2022 Abstract [facility] CONVERSIONS Dental, Provider, DDS Social History Tobacco [...] Description 03/24/2025 11:00 AM EDT Office Visit [facility] MEDICINE [address] [place] [address] Rashmi Finnegan ANP [address] [place] [address] documented as of this encounter Visit Diagnoses Not on filedocumented in this encounter Care Teams Auto Painter Relationship Specialty Start Date End Date Rashmi Finnegan ANP [address] [place] [address] PCP - General Family Medicine 01/25/21 documented as of this encounter
--- OUTSIDE RECORDS SUMMARY | 2025-02-20 13:36 | XMS_ITS | Encounter Summary ---
Author Organization [employer] [facility] Address [address] [facility] 7t [place] [address] Care Team Providers Care Inspector Watch Parts Name Role Phone Rashmi Finnegan Primary Care Provider [phone] Reason for Visit * Reason Comments Med Refill Encounter Details Date Type Department Care Team (Late st Contact Info) Description 10/22/2023 Refill [facility] MED & PEDS [address] [place], [place] [phone] Rashmi Finnegan ANP [address] [place] [address] Essential hypertension Social History Tobacco Use Types [...] Description 03/24/2025 11:00 AM EDT Office Visit [facility] MEDICINE [address] [place] [phone] Rashmi Finnegan ANP [address] [place] [address] documented as of this encounter Visit Diagnoses Diagnosis Essential hypertension Unspecified essential hypertension documented in this encounter Care Teams Inspector Watch Parts Relationship Specialty Start Date End Date Rashmi Finnegan ANP [address] [place] [phone] PCP - General Family Medicine 01/25/21 documented as of this encounter
--- OUTSIDE RECORDS SUMMARY | 2025-02-20 13:36 | XMS_ITS | Encounter Summary ---
Author Organization [email or web address] [facility] Address [address] [facility] 7t [place] [address] Care Team Providers Care Emergency Medical Dispatcher Name Role Phone Rashmi Finnegan Primary Care Provider [phone] Encounter Details Date Type Department Care Team (Late st Contact Info) Description 10/07/2022 Orders Only [facility] [address] [place] [address] Hina Mcguire LPN Social History Tobacco Use [...] Description 03/24/2025 11:00 AM EDT Office Visit [facility] MEDICINE [address] [place] [address] Rashmi Finnegan ANP [address] [place] [address] documented as of this encounter Visit Diagnoses Not on filedocumented in this encounter Care Teams Emergency Medical Dispatcher Relationship Specialty Start Date End Date Rashmi Finnegan ANP [address] [place] [address] PCP - General Family Medicine 01/25/21 documented as of this encounter
--- OUTSIDE RECORDS SUMMARY | 2025-02-20 13:36 | XMS_ITS | Encounter Summary ---
Author Organization [employer] [facility] Address [address] [facility] 7t [place] [address] Care Team Providers Care Commercial Title Examiner Name Role Phone Rashmi Finnegan Primary Care Provider [phone] Reason for Visit * Reason Comments Med Refill Encounter Details Date Type Department Care Team (Late st Contact Info) Description 10/07/2022 Refill [facility] CH[facility] MED & PEDS [address] [place], [place] [phone] Rashmi Finnegan ANP [address] [place] [address] Social History Tobacco Use Types Packs/Day Years [...] Description 03/24/2025 11:00 AM EDT Office Visit [facility] MEDICINE [address] [place] [address] Rashmi Finnegan ANP [address] [place] [address] documented as of this encounter Visit Diagnoses Not on filedocumented in this encounter Care Teams Commercial Title Examiner Relationship Specialty Start Date End Date Rashmi Finnegan ANP [address] [place] [address] PCP - General Family Medicine 01/25/21 documented as of this encounter
--- OUTSIDE RECORDS SUMMARY | 2025-02-20 13:36 | XMS_ITS | Encounter Summary ---
Author Organization [employer] Address [address] [facility] [address] [place] [address] Care Team Providers Care Rehab Director Name Role Phone Sivan Jas VERMA Primary Care Provider [phone] Encounter Details Date Type Department Care Team (Late st Contact Info) Description 02/20/2025 Orders Only [facility] External Provider, [facility] Social History Tobacco Use Types Packs/Day Years [...] Description 03/24/2025 11:00 AM EDT Office Visit [facility] MEDICINE [address] [place] [address] Jas Murray ANP [address] [place] [address] documented as of this encounter Procedures Procedure Name Priority Date/Time Associated Diagnosis Comments US RETROPERITONEAL COMPLETE Routine 02/20/2025 12:07 PM EDT documented in this encounter Results * US Retroperitoneal Complete (02/20/2025 12:07 PM EDT) Anatomical Region Laterality Modality Ultrasound 02/20/2025 12:0 7 PM EDT Narrative 02/20/2025 1:11 PM EDT ? [facility] ?[address] ?[place] [address] ? Ultrasound Report ? Signed ? Patient: Oliver Maya,Evan ?MR#: [id number] ?? [id number] ? : 1940 ?Acct:[id number] ? Age/Sex: 84 / M ?ADM Date: 05/05/25 ? Loc: HO.US ? Attending Dr: Latoya Estrada MD ? Ordering Physician: Latoya Estrada MD ?? Date of Service: 02/20/25 ?? Procedure(s): US retroperitoneal comp ?? Accession Number(s): [id number] ? cc: Latoya Estrada MD; JAS MURRAY [...] an estimated volume of 107 mL. ? US/US retroperitoneal comp ?? IMPRESSION: ? 1. Mild [...] signed by Franc Ferrell MD in OV> ?05/05/25 1308 ? DD/ 1207 ? TD/TT: 05// 1225 ? Operator Catalyst Concentration: ? Procedure Note Vanesa, Image - 02/20/[address] [address] Ultrasound Report Signed Patient: Eula Bass#: [id number] : 9Acct:[id number] Age/Sex: 84 / MADM Date: 02/20/25 Loc: HO.US Attending Dr: Latoya Estrada MD Ordering Physician: Latoya Estrada MD Date of Service: 02/20/25 Procedure(s): US retroperitoneal comp Accession Number(s): [id number] cc: Latoya Estrada MD; JAS MURRAY NP [...] 02/20/25 1308 DD/ 1207 TD/TT: 02/20/25 1225 Operator Catalyst Concentration: [facility] External Provider IMG US PROCEDURES Final Result documented in this encounter Visit Diagnoses Not on filedocumented in this encounter Additional Health Concerns Assessment Noted Time PHQ-9 Depression Total Score: 0 08/24/20 24 3:14 PM EST documented as of this encounter Care Teams Rehab Director Relationship Specialty Start Date End Date Jas Murray ANP [address] [place] [address] PCP - General Family Medicine 01/25/21 documented as of this encounter
== END 2025-02-20 11:57 | disposition home or self-care (01) ==
LOC: HO.US 11:56
PROVIDERS: PCP Nurse Practitioner Primary Care; Visit Provider Urology
DX: N40.1 Benign prostatic hyperplasia with lower urinary tract symptoms (principal); N13.8 Other obstructive and reflux uropathy; N32.89 Other specified disorders of bladder
CPT/HCPCS: 76770

== ENCOUNTER → 2025-02-20 11:58 | Outpatient (BNV) | payer MEDICAID, SELFPAY | PROVIDERS: PCP Nurse Practitioner Primary Care; Visit Provider Radiology Diagnostic Radiology | DX: N40.1 Benign prostatic hyperplasia with lower urinary tract symptoms (principal) | CPT/HCPCS: 76770 ==

== ENCOUNTER 2025-02-28 10:25 | Outpatient (AMB) | payer MEDICAID, SELFPAY ==
--- NOTE | 2025-02-28 11:20 | MHC.OFFVIS ---
Intake Visit Reasons: Followup/PVR Intake Note: Patient presents to office today for a follow up/PVR Urology Meds:Tamsulosin, Finasteride Allergies:None Blood Thinner:Aspirin PVR:170ml Bottom Turning Lathe Tender Required: Yes Bottom Turning Lathe Tender Services: Bottom Turning Lathe Tender Present Bottom Turning Lathe Tender Name: Jennifer Tracy Information Interpreted: non-clinical & clinical Allergies No Known Allergies Allergy (Verified 02/28/25 11:22) HPI Comments Details: 02/28/25--Evan is an 84-year-old male who is here with his son for follow-up BPH. He was initially evaluated 05/26/2024 due to UTI and CT scan findings of mural thickening the bladder. He is prescribed Proscar and tamsulosin. I have reviewed renal ultrasound results mild bilateral pelvic caliectasis clinically not significant; prostate enlarged, postvoid residual acceptable 107 mL. The patient states that his urinary flow is stronger however he has episodes of urgency as well as gets up frequently at nighttime 3-5 times I will add Myrbetriq 25 mg to take in the evening follow-up in 3 months monitor postvoid residual. Results: - 02/20/25--Renal US: Mild bilateral renal pelvic fullness, of uncertain significance. This may be due to an enlarged prostate and mild bladder outlet obstruction. No definite hydronephrosis. Enlargement of the prostate with a probable enlarged median lobe as seen previously. Post void bladder residual of 107 mL. -Office cystoscopy--07/08/2024 ---resulting bladder wall thickening no suspicious bladder lesions 11/07/24-- Evan is an 84-year-old male who is here with his son for follow-up BPH. He was initially evaluated 05/26/2024 due to UTI and CT scan findings of mural thickening the bladder. He was last seen 07/08/2024 at which time cystoscopy was done resulting bladder wall thickening no suspicious bladder lesions and he was started on Proscar in addition to the tamsulosin. He states he is urinating without difficulty does get up at night 1-4 times. Denies dysuria. Urinalysis negative for blood or leukocytes. Follow-up in 6 months re-evaluate with ultrasound kidneys and PSA. 07/08/24--Here for cystoscopy. Cystoscopy findings: prostatic urethra trilobar enlargement, bulbous urethra within normal limits, no suspicious bladder lesions visualized. Will continue tamsulosin, new script for Proscar 5 mg daily. 05/26/24--Evan is an 83 who was seen at [facility] 12/2022 for UTI. CTAP/w IV contrast noted mural thickening thickening of the bladder, and enlarged prostate, renal calculi or hydronephrosis. Urine and blood cultures were positive the patient was admitted for IV antibiotics. He was advised to follow-up with Urology, he states that he just got insurance. The patient is here with his son who interprets for him. He states that since his discharge he has been doing well he states he is taking the tamsulosin daily. Urinalysis is limits bladder PVR - 54 mL. I have discussed follow-up office cystoscopy. [facility] Medical History Atherosclerotic cardiovascular disease Sleep apnea Urinary retention Hypercholesteremia Hypertension Surgical History History of coronary artery bypass graft (~2006) Family History Father No problems noted. Mother No problems noted. Social History Household Members: Family Housing: House Do you presently have visiting nurse or other home services: Yes ( has a DATABASE TESTER and visiting nurse) Patient Tobacco Use Status: Never used Tobacco e-Cigarette/Vaping Use: Never Used Second Hand Smoke Exposure: No service: No Current occupational status: retired Review of Systems Const All systems reviewed & are unremarkable except as noted in HPI and below Reports no additional complaints Eyes Reports no additional complaints ENT Reports no additional complaints Card Reports no additional complaints Resp Reports no additional complaints GI Reports no additional complaints Reports as per HPI Musc Reports no additional complaints Skin/Breast Reports system reviewed and no additional complaints, except as documented Neuro Reports no additional complaints Psych Reports no additional complaints Endo Reports no additional complaints Kevin/Lymph Reports no additional complaints Aller/Immun Reports no additional complaints Results Reviewed Results Reviewed: Date of Service: 02/20/25 EXAMINATION: US RETROPERITONEUM HISTORY: N40.1 - Benign prostatic hyperplasia with lower urinary tract symptoms TECHNIQUE: Real-time grayscale ultrasound imaging of the kidneys was performed and images were reviewed. COMPARISON: Comparison is made with the prior examination dated 01/05/2023. FINDINGS: Right kidney: The right kidney measures 11.7 x 5.1 x 4.5 cm. Renal parenchymal echotexture and thickness are normal. There are no masses. No renal calculi are identified. There is mild fullness of the renal pelvis without hydronephrosis. Left Kidney: The left kidney measures 11.6 x 3.9 x 4.9 cm. Renal parenchymal echotexture and thickness are normal. There are no masses. No renal calculi are identified. There is mild fullness of the renal pelvis without hydronephrosis. The urinary bladder is unremarkable. Bilateral ureteral jets are identified. Again seen is enlargement of the prostate with a probable enlarged median lobe. The prostate measures 4.7 x 1.2 x 4.2 cm. Before voiding, the urinary bladder measured 8.3 x 6.3 x 5.7 cm, for an estimated volume of 156 mL. After voiding, the urinary bladder measured 6.4 x 6.0 x 5.3 cm, for an estimated volume of 107 mL. IMPRESSION: 1. Mild bilateral renal pelvic fullness, of uncertain significance. This may be due to an enlarged prostate and mild bladder outlet obstruction. No definite hydronephrosis. 2. Enlargement of the prostate with a probable enlarged median lobe as seen previously. 3. Post void bladder residual of 107 mL. Date of Service: 01/09/23 EXAMINATION: CT ABDOMEN AND PELVIS WITH CONTRAST CLINICAL INFORMATION: Right flank pain, UTI. COMPARISON: None available. TECHNIQUE: Multidetector volumetric images were obtained from the superior aspect of the liver through the pubic symphysis following administration 85 mL of Omnipaque 350 intravenous contrast. Sagittal and coronal reformatted images were obtained on the technologist's workstation. Oral contrast: No This CT examination was performed using dose optimization techniques as appropriate, variously including the following: *Automated exposure control *Adjustment of mA and/or kV according to patient size (this includes techniques or standardized protocols for targeted exams where dose is matched to indication/reason for exam; i.e. extremities or head) *Use of iterative reconstruction technique DLP: 532 mGy-cm FINDINGS: LUNG BASES: Mild bibasilar atelectasis/scarring. No pleural or pericardial effusions. LIVER, GALLBLADDER, AND BILIARY TREE: Unremarkable.. PANCREAS: Unremarkable. SPLEEN: Unremarkable. ADRENAL GLANDS: Unremarkable. KIDNEYS AND URETERS: The kidneys are normal in size, shape, and attenuation. No hydronephrosis, hydroureter, or calculi seen. No perinephric stranding. BLADDER: Mildly distended with diffuse mild mural thickening, but no focal or surrounding abnormality. GASTROINTESTINAL TRACT: The stomach, small bowel and appendix are unremarkable. The colon shows mild to severe diverticulosis or evidence aligned, most pronounced in the descending colon. There is mild inflammation surrounding a diverticulum in the mid one third of the descending colon without evidence for perforation or abscess formation. ABDOMINAL WALL: No significant hernia is appreciated. LYMPH NODES: No lymphadenopathy. VASCULAR: Mild to moderate atherosclerosis most pronounced in the infrarenal abdominal aorta without significant aneurysmal dilatation. PELVIC VISCERA: Moderate prostatomegaly with lobulation of the prostatic base indenting the inferior wall the urinary bladder. OSSEOUS STRUCTURES: Mild multilevel degenerative changes in the thoracolumbar spine without suspicious abnormality. IMPRESSION: 1. Mild acute diverticulitis in the mid one third of the descending colon without evidence for perforation or abscess formation. 2. No nephrolithiasis or hydroureteronephrosis. 3. Moderate prostatomegaly with lobulation of the prostatic base indenting the inferior wall the urinary bladder. Mild mural thickening in the urinary bladder is likely secondary to incomplete distention/chronic changes. Correlate with PSA level. Collected: 01/09/23-UNK Status: COMP Req#: [id number] Received: 01/09/23 Source: [facility] Sp Desc: Urine hartley Subm Dr: Sana Mccann Ordered: Urine Culture Procedure Result Verified Urine Culture Final 01/11/23 Organism 1 Klebsiella oxytoca Quant > 100,000 cfu/mL Kleb oxyto M.I.C. RX --------- --- Ampicillin >=32 R Ceftriaxone <=0.25 S Gentamicin <=1 S Levofloxacin <=0.12 S Nitrofurantoin <=16 S Trimethoprim/Sulfamethoxazole <=20 S Collected: 01/09/23 Status: PREET Vu#: [id number] Received: 01/09/23 Source: Blood Sp Desc: Venous Pulse Subm Dr: Sana Mccann Ordered: Blood Cult(2nd) Procedure Result Verified Blood Culture (Second) Final 01/15/23 Gram stain results: Gram-positive rods Gram stain results: Gram-negative rods 2 sets positive/2 sets drawn Gram stain results from blood cultures should be interpreted with caution. A number of factors, including the presence of antibiotics in the specimen and the effect of growth in enriched liquid culturing medium, may cause organisms to react differently with the staining reagents. These factors occasionally cause a Gram-negative organism to stain Gram-positive and vice versa. Results of the initial Gram stain from the culture broth must always be correlated with growth on agar. Organism 1 Pseudomonas aeruginosa Organism 2 Eggerthella lenta Results of Blood Culture gram stain sent by a secure message and confirmed by YNES ARENAS on 01/11/23 at 1937 by JOSE M. Critical blood culture gram stain gram negative rods sent by a secure message and confirmed by Mick Ford on 01/12/23 at 0947 by JAYDEN. P aerugino M.I.C. RX --------- --- Cefepime 2 S Gentamicin <=1 S Levofloxacin 0.25 S Meropenem <=0.25 S Piperacillin/Tazobactam <=4 S Assessment & Plan Assessment & Plan (1) BPH w urinary obs/LUTS: Code(s): N40.1 - Benign prostatic hyperplasia with lower urinary tract symptoms; N13.8 - Other obstructive and reflux uropathy Category: Medical (2) Bladder wall thickening: Code(s): N32.89 - Other specified disorders of bladder Category: Medical (3) Urinary urgency: Code(s): R39.15 - Urgency of urination Category: Medical (4) Nocturia more than twice per night: Code(s): R35.1 - Nocturia Category: Medical Plan Continue tamsulosin, Proscar 5 mg daily. Myrbetriq 25 mg daily follow-up in 3 months monitor postvoid residuals Medications: New mirabegron ER (Myrbetriq) 25 mg PO DAILY 90 tabs 3RF Refilled finasteride (Proscar) 5 mg PO DAILY 90 days 90 tabs 3RF enlarged prostate tamsulosin 0.4 mg PO DAILY 90 caps 3RF Discontinued cefuroxime axetil next dose 12/04/24 Discontinued Reason: Patient Completed Course 500 mg PO BID 7 days 14 tabs 0RF Coding Level of Care Code Est Pt Level 4 (60235) Diagnoses BPH w urinary obs/LUTS N40.1; N13.8 Bladder wall thickening N32.89 Urinary urgency R39.15 Nocturia more than twice per night R35.1
--- OUTSIDE RECORDS SUMMARY | 2025-02-28 11:31 | XMS_ITS | Encounter Summary ---
Author Organization [employer] [facility] Address [address] [facility] 7t [place] [address] Care Team Providers Care Set Up Mechanic Automatic Line Name Role Phone Rashmi Finnegan Primary Care Provider [phone] Encounter Details Date Type Department Care Team (Late st Contact Info) Description 10/06/2022 Orders Only [facility] MED & PEDS [address] [place], [place] [phone] Gisell Campos LPN Social History Tobacco Use [...] 03/24/2025 11:00 AM EDT Office Visit [facility] MEDICINE [address] [place] [address] Rashmi Finnegan ANP [address] [place] [address] documented as of this encounter Visit Diagnoses Not on filedocumented in this encounter Care Teams Set Up Mechanic Automatic Line Relationship Specialty Start Date End Date Rashmi Finnegan ANP [address] [place] [address] PCP - General Family Medicine 01/25/21 documented as of this encounter
--- OUTSIDE RECORDS SUMMARY | 2025-02-28 11:31 | XMS_ITS | Encounter Summary ---
Author Organization [employer] Address [address] [facility] 7t [place] [address] Care Team Providers Care Cattery Operator Name Role Phone Rashmi Finnegan Primary Care Provider [phone] Reason for Visit * Reason Comments Med Refill Encounter Details Date Type Department Care Team (Late st Contact Info) Description 10/22/2023 Refill [facility] MED & PEDS [address] [place], [place] [phone] Rashmi Finnegan ANP [address] [place] [address] Essential hypertension Social History Tobacco Use Types [...] Description 03/24/2025 11:00 AM EDT Office Visit [facility] MEDICINE [address] [place] [phone] Rashmi Finnegan ANP [address] [place] [address] documented as of this encounter Visit Diagnoses Diagnosis Essential hypertension Unspecified essential hypertension documented in this encounter Care Teams Cattery Operator Relationship Specialty Start Date End Date Rashmi Finnegan ANP [address] [place] [address] PCP - General Family Medicine 01/25/21 documented as of this encounter
--- OUTSIDE RECORDS SUMMARY | 2025-02-28 11:31 | XMS_ITS | Encounter Summary ---
Author Organization [employer] [facility] Address [address] [facility] 7t [place] [address] Care Team Providers Care Line Welder Name Role Phone Rashmi Finnegan Primary Care Provider [phone] Encounter Details Date Type Department Care Team (Late st Contact Info) Description 10/07/2022 Orders Only [facility] [address] [place] [address] Hina Mcguire LPN Social History Tobacco Use [...] Description 03/24/2025 11:00 AM EDT Office Visit [facility] MEDICINE [address] [place] [address] Rashmi Finnegan ANP [address] [place] [address] documented as of this encounter Visit Diagnoses Not on filedocumented in this encounter Care Teams Line Welder Relationship Specialty Start Date End Date Rashmi Finnegan ANP [address] [place] [phone] PCP - General Family Medicine 01/25/21 documented as of this encounter
--- OUTSIDE RECORDS SUMMARY | 2025-02-28 11:31 | XMS_ITS | Encounter Summary ---
Author Organization [employer] Address [address] [place] [address] 7t [place] [address] Care Team Providers Care Driver Education Road Instructor Name Role Phone Rashmi Finnegan Primary Care Provider [phone] Reason for Visit * Reason Comments Med Refill Encounter Details Date Type Department Care Team (Late st Contact Info) Description 10/07/2022 Refill [facility] MED & PEDS [address] [place], [place] [phone] Rashmi Finnegan ANP [address] [place] [address] Social History Tobacco Use Types Packs/Day Years [...] Description 03/24/2025 11:00 AM EDT Office Visit [facility] MEDICINE [address] [place] [address] Rashmi Finnegan ANP [address] [place] [address] documented as of this encounter Visit Diagnoses Not on filedocumented in this encounter Care Teams Driver Education Road Instructor Relationship Specialty Start Date End Date Rashmi Finnegan ANP [address] [place] [address] PCP - General Family Medicine 01/25/21 documented as of this encounter
--- OUTSIDE RECORDS SUMMARY | 2025-02-28 11:31 | XMS_ITS | Clinical Summary ---
Author Organization [employer] Address [address] [facility] 7t [place] [address] Care Team Providers Care Car Wiper Name Role Phone Sivan Jas VERMA Primary Care Provider [phone] Allergies No known active allergies Medications atorvastatin [...] BY MOUTH EVERY DAY 90 tablet 1 10/20/19 25 Active lisinopril 2.5 MG tabletIndications:Es sential hypertension TAKE 1 TABLET BY MOUTH EVERY DAY 90 tablet 1 10/26/19 Active metoprolol succinate XL (Toprol-XL) 25 MG 24 hr tabletIndications:Es sential hypertension TAKE 2 TABLETS BY MOUTH EVERY DAY DO NOT BREAK, CRUSH, DISSOLVE OR CHEW 180 tablet 10/26/19 Active Active Problems Problem Noted Date Diagnosed [...] Pt to be transported via ambulance to [facility] for IVF, IV Abx and likely CT of abdomen to rule out pyelonephritis Pt agreeable with plan Hypotension 12/01/2024 Assessment & Plan (12/01/2024 2:37 PM EST): Likely due to urosepsis To be transported via ambulance to [facility] for IVF and IV Abx as well as potential admission overnight Case discussed with [facility] Pre-op examination 08/29/2024 Assessment & Plan [...] Department Care Team Description 02/20/2025 Orders Only [facility] External Provider, [facility] 12/20/2024 Telephone [facility] MEDICINE [address] [place] [address] Jas Mruray ANP March recall 12/07/2024 9:00 AM EST Office Visit [facility] OPTOMETRY [address] [place] [address] Cayden, Shona, OD Presbyopia of both eyes (Primary Dx) 12/07/2024 Travel 12/01/2024 2:30 PM EST Office Visit [facility] MEDICINE [address] [place] [address] Jareth Read MD Acute cystitis with hematuria (Primary Dx); Hypotension, unspecified hypotension type; UTI symptoms 12/01/2024 Travel 12/01/2024 Telephone [facility] MEDICINE [address] [place] [address] Jas Murray, ANP Nurse Triage from Last 3 Months Immunizations Name Administration [...] Description 03/24/2025 11:00 AM EDT Office Visit [facility] MEDICINE [address] [place] [address] Jas Murray ANP [address] [place] [address] Health Maintenance Due Date Last Done Comments [...] 12/01/2024 Dental X-Ray: Full Mouth 03/08/2027 03/07/2024, 03/2022 Lipid Panel 08/25/2029 08/25/2024, 04/23/2021 DTaP/Tdap/Td [...] EDT Narrative 02/20/2025 1:11 PM EDT ? [facility] ?[address] ?[place] [address] ? Ultrasound Report ? Signed ? Patient: Evan Bass ?MR#: [id number] ?? [id number] ? : 1940 ?Acct:[id number] ? Age/Sex: 84 / M ?ADM Date: 02/20/25 ? Loc: HO.US ? Attending Dr: Latoya Estrada MD ? Ordering Physician: Latoya Estrada MD ?? Date of Service: 02/20/25 ?? Procedure(s): US retroperitoneal comp ?? Accession Number(s): [id number] ? cc: Latoya Estrada MD; JAS MURRAY [...] ??Franc Ferrell MD ??02/20/2025 01:08 PM EDT ? Dictated By: ?Franc Ferrell MD ? Signed By: ?<Electronically signed by Franc Ferrell MD in OV> ?02/20/25 1308 ? DD/ 1207 ? TD/TT: 02/20/25 1225 ? Final Finisher Forging Dies: ? Procedure Note Vanesa, Image - 02/20/[address] [address] Ultrasound Report Signed Patient: Eula Bass#: [id number] : 9Acct:[id number] Age/Sex: 84 / MADM Date: 02/20/25 Loc: . Attending Dr: Latoya Estrada MD Ordering Physician: Latoya Estrada MD Date of Service: 02/20/25 Procedure(s): US retroperitoneal comp Accession Number(s): [id number] cc: Latoya Estrada MD; JAS MURRAY NP [...] Franc Ferrell MD 02/20/2025 01:08 PM EDT Dictated By: Franc Ferrell MD Signed By: <Electronically signed by Franc Ferrell MD in OV> 02/20/25 1308 DD/ 1207 TD/TT: 02/20/25 1225 Final Finisher Forging Dies: [facility] External Provider IMG US PROCEDURES Final [...] AM EST) Hemoglobin A1c 5.7 <6.0 % [facility] Comment:Hemoglobin A1C Refer ence Range Adults: 4.8 - 6.0 % Non diabetic: < 6.0 % Goal: < 7.0 %Additional Action Suggested: > 8.0 %Note: Hemoglobin A1c results are invalid for patients with abnormal amounts of HbF. Blood transfusions may impact the HbA1c concentration in the patient sample. Estimated Average Glucose 117 mg/dL [facility] Comment:eAG = Estimated ave rage glucose which is %A1C expressed asaverage glucose, using the formula of the S5I-LzykhfvHkqvevy Glucose study (ADAG), Diabetes Care, Vol.31,#8,May. 2007 Blood Venous blood specimen / Unknown 08/25/2024 11:19 AM EST 08/25/2024 1:14 PM EST Jas VERMA LAB BLOOD ORDERABLES Final Resul t [facility] [address] [place] [phone] * (ABNORMAL) Lipid Panel, Standard (08/25/2024 11:19 AM EST) Triglycerides 91 <150 mg/dL [facility] Comment:Desirable Triglyceri de: less than 150 mg/dLBorderline High Triglyceride 150-199 mg/dLHigh Triglyceride: 200-499 mg/dLVery High Triglyceride: greater than or equal to 5OO mg/dL Cholesterol 182 <200 mg/dL [facility] Comment:Desirable Cholestero l: less than 200 mg/dLBorderline High Cholesterol: 200-239 mg/dLHigh Cholesterol: greater than 239 mg/dL LDL Cholesterol Calculated 113(H) <100 mg/dL [facility] Comment:Desirable LDL: less than 100 mg/dLNear Optimal/Above Optimal LDL: 110- 129 mg/dLBorderline High LDL: 130-159 mg/dLHigh LDL: 160-189 mg/dLVery High LDL: greater than or equal to 190 mg/dL HDL Cholesterol 51 >40 mg/dL [facility] Comment:Desirable HDL: great er than 40 mg/dL Note: This HDL assay may give artificially low results in patients with liver disease. Blood Venous blood specimen / Unknown 08/25/2024 11:19 AM EST 08/25/2024 1:14 PM EST Jas Murray [facility] BLOOD ORDERABLES Final Resul t [facility] [address] [place] [address] [phone] from Last 3 Months or Most Recently Relevant to Health Maintenance Insurance [facility] STANDARD * Guarantor: Evan Bass Account Type Relation to Patient Date of Phone Billing Address Personal/Family Self [address] [place] Care Teams Car Wiper Relationship Specialty Start Date End Date Jas Murray ANP [address] [place] [phone] PCP - General Family Medicine 01/25/21
--- OUTSIDE RECORDS SUMMARY | 2025-02-28 11:31 | XMS_ITS | Encounter Summary ---
Author Organization [employer] [facility] Address [address] [facility] 7t [place] [address] Care Team Providers Care Rough Rounder Name Role Phone Rashmi Finnegan Primary Care Provider [phone] Encounter Details Date Type Department Care Team (Latest Contact Info) Description 05/07/2022 Abstract [facility] CONVERSIONS Dental, Provider, DDS Social History Tobacco [...] 03/24/2025 11:00 AM EDT Office Visit [facility] MEDICINE [address] [place] [address] Rashmi Finnegan ANP [address] [place] [address] documented as of this encounter Visit Diagnoses Not on filedocumented in this encounter Care Teams Rough Rounder Relationship Specialty Start Date End Date Rashmi Finnegan ANP [address] [place] [address] PCP - General Family Medicine 01/25/21 documented as of this encounter
== END 2025-02-28 12:06 | disposition home or self-care (01) ==
LOC: HO.HUSH 10:25
PROVIDERS: Visit Provider Urology
DX: N40.1 Benign prostatic hyperplasia with lower urinary tract symptoms (principal); N13.8 Other obstructive and reflux uropathy; N32.89 Other specified disorders of bladder; R39.15 Urgency of urination; R35.1 Nocturia; Z13.9 Encounter for screening, unspecified
CPT/HCPCS: 99214

== ENCOUNTER → 2025-02-28 10:25 | Outpatient (BNVA) | payer MEDICAID, SELFPAY | PROVIDERS: Visit Provider Urology | DX: N40.1 Benign prostatic hyperplasia with lower urinary tract symptoms (principal); N13.8 Other obstructive and reflux uropathy; N32.89 Other specified disorders of bladder; R39.15 Urgency of urination; R35.1 Nocturia | CPT/HCPCS: 51798; 81003; 99212 ==

== ENCOUNTER 2025-06-05 10:06 | Outpatient (REF) | payer MEDICAID, SELFPAY ==
[2025-06-05 10:21] LABS: MANUAL DIFF FLAG NO
[2025-06-05 11:01] LABS: Hematocrit 40.5 % (42.0-52.0); Hemoglobin 13.5 g/dl (14.0-18.0); Imm Gran Abs Auto 0.04 X10*3/uL (0.00-0.03); Imm Gran Pct Auto 0.4 % (0.0-0.4); Lymphocytes Absolute Auto 2.1 X10*3/uL (1.2-4.9); Mean Corpuscular HGB Conc 33.3 g/dl (31.0-36.0); Mean Corpuscular Hemoglobin 29.3 pg (27.0-33.0); Mean Corpuscular Volume 87.9 fL (80.0-98.0); NRBC Abs Auto 0.000 X10*3/uL (0.0-0.012); NRBC Pct Auto 0.0 /100WBC (0.0-0.2); Platelet Count 176 X10*3/uL (160-400); Red Blood Count 4.61 X10*6/uL (4.60-5.80); White Blood Count 10.7 X10*3/uL (4.8-10.8)
--- OUTSIDE RECORDS SUMMARY | 2025-06-05 11:02 | XMS_ITS | Encounter Summary ---
Author Organization [employer] Address [address] [facility] 7t [place] [address] Care Team Providers Care Ear Nose Throat Surgeon Name Role Phone Rashmi Finnegan Primary Care Provider [phone] Reason for Visit * Reason Comments Med Refill Encounter Details Date Type Department Care Team (Late st Contact Info) Description 10/22/2023 Refill [facility] MED [facility] PEDS [address] [place], [place] [phone] Rashmi Finnegan ANP [address] [place], [place] [phone] Essential hypertension Social History Tobacco Use Types [...] as of this encounter Plan of Treatment Not on file documented as of this encounter Visit Diagnoses Diagnosis Essential hypertension Unspecified essential hypertension documented in this encounter Care Teams Ear Nose Throat Surgeon Relationship Specialty Start Date End Date Rashmi Finnegan ANP [address] [place], [place] [phone] PCP - General Family Medicine 01/25/21 documented as of this encounter
[2025-06-05 12:00] LABS: Anion Gap 12 (12-20); Blood Urea Nitrogen 21 mg/dL (9-16); Calcium 9.5 mg/dL (8.4-10.2); Carbon Dioxide 25 mmol/L (22-29); Chloride 111 mmol/L (96-108); Cholesterol 134 mg/dL (<200); Estimated Glomerular Filt Rate > 60; HDL Cholesterol 40 mg/dL (>40); Potassium 4.8 mmol/L (3.3-5.1); Sodium 143 mmol/L (135-145); Triglycerides 105 mg/dL (<150)
[2025-06-05 12:01] LABS: PSA,Total (Free>4and<10) 0.84 ng/mL (0.00-4.00)
[2025-06-05 12:11] LABS: Hemoglobin A1C 167.0667 umol/L; Total Hemoglobin (HGBA1C) 4198.5016 umol/L
== END 2025-06-05 10:07 | disposition home or self-care (01) ==
LOC: HO.LAB 10:06
PROVIDERS: Absent Provider Urology; PCP Nurse Practitioner Primary Care; Visit Provider Nurse Practitioner Primary Care
DX: N40.1 Benign prostatic hyperplasia with lower urinary tract symptoms (principal); N13.8 Other obstructive and reflux uropathy; N30.01 Acute cystitis with hematuria; I25.10 Atherosclerotic heart disease of native coronary artery without angina pectoris; I25.2 Old myocardial infarction; R73.09 Other abnormal glucose; I10 Essential (primary) hypertension; R39.9 Unspecified symptoms and signs involving the genitourinary system; D72.829 Elevated white blood cell count, unspecified
CPT/HCPCS: 36415; 80048; 80061; 83036; 84153; 85025; 87086

== ENCOUNTER 2025-06-09 11:06 | Outpatient (AMB) | payer MEDICAID, SELFPAY ==
--- OUTSIDE RECORDS SUMMARY | 2025-06-09 11:10 | XMS_ITS | Encounter Summary ---
Author Organization [employer] Address [address] [facility] [address] [place] [address] Care Team Providers Care Police Captain Name Role Phone Rashmi Finnegan Primary Care Provider [phone] Reason for Visit * Reason Comments Med Refill Encounter Details Date Type Department Care Team (Late st Contact Info) Description 10/22/2023 Refill [facility] [address] [place], [place] [phone] Rashmi Finnegan ANP [address], [place] [phone] Essential hypertension Social History Tobacco Use Types [...] hypertension documented in this encounter Care Teams Police Captain Relationship Specialty Start Date End Date Rashmi Finnegan ANP [address], [place] [phone] PCP - General Family Medicine 01/25/21 documented as of this encounter
--- NOTE | 2025-06-09 12:59 | MHC.OFFVIS ---
Intake Visit Reasons: 3m/PVR Intake Note: Patient presents to office today for a 3m follow up/PVR Urology Meds:Tamsulosin, Finasteride Allergies:None Blood Thinner:Aspirin PVR:21ml Superintendent Distribution Required: Yes Superintendent Distribution Services: Superintendent Distribution Present Superintendent Distribution Name: Jennifer Tracy Information Interpreted: non-clinical & clinical Allergies No Known Allergies Allergy (Verified 06/09/25 13:02) Medication List - Last Reconciled 06/09/25 by Latoya Estrada MD aspirin (Adult Aspirin Regimen) 81 mg PO DAILY atorvastatin 80 mg PO BEDTIME diclofenac sodium 1% 2 grams topical QD-QID PRN finasteride (Proscar) 5 mg PO DAILY 90 days fluticasone propionate 50 mcg/actuation 2 sprays intranasal DAILY PRN lisinopril 2.5 mg PO DAILY metoprolol succinate ER 50 mg PO DAILY mirabegron ER (Myrbetriq) 25 mg PO DAILY naproxen 500 mg PO DAILY PRN omeprazole 20 mg PO DAILY@0630 PRN tamsulosin 0.4 mg PO DAILY HPI Comments Details: 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 He was initially evaluated 05/26/2024 due to UTI and CT scan findings of mural thickening the bladder. He is prescribed Proscar and tamsulosin. I have reviewed renal ultrasound results mild bilateral pelvic caliectasis clinically not significant; prostate enlarged, postvoid residual acceptable 107 mL. The patient states that his urinary flow is stronger however he has episodes of urgency as well as gets up frequently at nighttime 3-5 times I will add Myrbetriq 25 mg to take in the evening follow-up in 3 months monitor postvoid residual. Results: - 02/20/25--Renal US: Mild bilateral renal pelvic fullness, of uncertain significance. This may be due to an enlarged prostate and mild bladder outlet obstruction. No definite hydronephrosis. Enlargement of the prostate with a probable enlarged median lobe as seen previously. Post void bladder residual of 107 mL. -Office cystoscopy--07/08/2024 ---resulting bladder wall thickening no suspicious bladder lesions 11/07/24-- Evan is an 84-year-old male who is here with his son for follow-up BPH. He was initially evaluated 05/26/2024 due to UTI and CT scan findings of mural thickening the bladder. He was last seen 07/08/2024 at which time cystoscopy was done resulting bladder wall thickening no suspicious bladder lesions and he was started on Proscar in addition to the tamsulosin. He states he is urinating without difficulty does get up at night 1-4 times. Denies dysuria. Urinalysis negative for blood or leukocytes. Follow-up in 6 months re-evaluate with ultrasound kidneys and PSA. 07/08/24--Here for cystoscopy. Cystoscopy findings: prostatic urethra trilobar enlargement, bulbous urethra within normal limits, no suspicious bladder lesions visualized. Will continue tamsulosin, new script for Proscar 5 mg daily. 05/26/24--Evan is an 83 who was seen at [facility] 12/2022 for UTI. CTAP/w IV contrast noted mural thickening thickening of the bladder, and enlarged prostate, renal calculi or hydronephrosis. Urine and blood cultures were positive the patient was admitted for IV antibiotics. He was advised to follow-up with Urology, he states that he just got insurance. The patient is here with his son who interprets for him. He states that since his discharge he has been doing well he states he is taking the tamsulosin daily. Urinalysis is limits bladder PVR - 54 mL. I have discussed follow-up office cystoscopy. [facility] Medical History Atherosclerotic cardiovascular disease Sleep apnea Urinary retention Hypercholesteremia Hypertension Surgical History History of coronary artery bypass graft (~2006) Family History Father No problems noted. Mother No problems noted. Social History Household Members: Family Housing: House Do you presently have visiting nurse or other home services: Yes ( has a [employer] and visiting nurse) Patient Tobacco Use Status: Never used Tobacco e-Cigarette/Vaping Use: Never Used Second Hand Smoke Exposure: No service: No Current occupational status: retired Results AMB Urinalysis, Automated UA Leukoctes 0 Torey/uL Last Edit by Jazmyne Rincon on 06/09/25 17:17 UA Nitrite Negative Last Edit by Jazmyne Rincon on 06/09/25 17:17 UA Urobilinogen 3.5 mg/dL Last Edit by Jazmyne Rincon on 06/09/25 17:17 UA Protein 0 mg/dL Last Edit by Jazmyne Rincon on 06/09/25 17:17 UA pH 6.0 Last Edit by Jazmyne Rincon on 06/09/25 17:17 UA Blood 0 Joe/uL Last Edit by Jazmyne Rincon on 06/09/25 17:17 UA Specific [place] 1.015 Last Edit by Jazmyne Rincon on 06/09/25 17:17 UA Ketone Negative Last Edit by Jazmyne Rincon on 06/09/25 17:17 UA Bilirubin 0 mg/dL Last Edit by Jazmyne Rincon on 06/09/25 17:17 UA Glucose 0 mg/dL Last Edit by Jazmyne Rincon on 06/09/25 17:17 Assessment & Plan Assessment & Plan Orders: Orders AMB Urinalysis Automated Today Z13.9 - Encounter for screening, unspecified AMB Post Void Residual by ultrasound Today N13.8 - Other obstructive and reflux uropathy, N40.1 - Benign prostatic hyperplasia with lower urinary tract symptoms Coding
== END 2025-06-09 13:10 | disposition home or self-care (01) ==
LOC: HO.HUSH 11:06
PROVIDERS: Visit Provider Urology
DX: Z13.9 Encounter for screening, unspecified (principal)

== ENCOUNTER → 2025-06-09 11:06 | Outpatient (BNVA) | payer MEDICAID, SELFPAY | PROVIDERS: Visit Provider Urology | DX: N40.1 Benign prostatic hyperplasia with lower urinary tract symptoms (principal) | CPT/HCPCS: 81003; 99212 ==